=== PATIENT | male | born 1970 | race American Indian/Alaskan Native ===

== ENCOUNTER 2018-11-01 14:53 | Inpatient (IN) | payer MEDICARE ==
[2018-11-01] MEDS ORDERED: NACL 0.9% 1000 ML IV ONE (15:45)
[2018-11-01] MEDS ORDERED: VANCOMYCIN PHARMACY TO DOSE IV SCH (16:00)
[2018-11-01 16:12] LABS: Hematocrit 24.2 % (35.5-45.6); Hemoglobin 7.5 gm/dl (11.8-15.2); Mean Corpuscular HGB Conc 31 % (32-34); Mean Corpuscular Volume 79 fl (84-94); Platelet Count 212 K/mm3 (140-440); Red Blood Count 3.05 M/mm3 (3.65-5.03)
[2018-11-01 16:38] LABS: Albumin 1.3 g/dL (3.9-5); Calcium 7.3 mg/dL (8.4-10.2)
[2018-11-01] MEDS: ZOSYN/NS 4.5GM/100ML 4.5 GM/100 ML VIAL IV SCH (16:59)
[2018-11-01] MEDS ORDERED: NACL 0.9% 250ML 250 ML ONE (17:04)
[2018-11-01 17:07] LABS: Basophils % (Manual) 0 % (0.0-1.8); Eosinophils % (Manual) 0 % (0.0-4.3); Hypochromasia 1+; Total Cells Counted 100
[2018-11-01 17:08] LABS: Chol/HDL Ratio 2.16 %
--- NOTE | 2018-11-01 18:05 | XRay Report ---
CHEST 1 VIEW INDICATION: sepsis. COMPARISON: None. FINDINGS: Support devices: None. Heart: Within normal limits. Lungs/Pleura: Patchy infiltrate at the left mid/lower zone. There is associated volume loss. Additional findings: None. IMPRESSION: Left basilar volume loss and associated pneumonia. Signer Name: Ray Storm MD Signed: 11/01/2018 6:01 PM Workstation Name: [id number]
--- NOTE | 2018-11-01 19:04 | Emergency Department Report ---
ED General Adult HPI - General Chief complaint: Dizziness Stated complaint: LOW BP Time Seen by Provider: 11/01/18 15:45 Source: EMS Mode of arrival: Stretcher Limitations: Physical Limitation - History of Present Illness Initial comments: Mr. Hodgson is a 48-year-old male with history of bilateral LE amputation, pneumonitis, hypertension, atrial fibrillation, malnutrition, gangrene, diabetes mellitus, dyslipidemia, depression, sleep apnea, dehydration presents with hypotension. He currently resides at [facility]. He states that he has pain at the tailbone. He has a sacral decubitus wound. No other concerns according to the patient. -: This afternoon Consistency: constant Improves with: none Worsens with: none Associated Symptoms: other (hypotension, wound infection) - Related Data Allergies Allergy/AdvReac Type Severity Reaction Status Date / Time No Known Allergies Allergy Unverified 11/01/18 16:16 ED Review of Systems ROS: Stated complaint: LOW BP Other details as noted in HPI Comment: All other systems reviewed and negative Constitutional: malaise. 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 Absent: respiratory distress, wheezes, rales, rhonchi - Cardiovascular Cardiovascular Exam: Present: normal rhythm, tachycardia, irregular rhythm, normal heart sounds. Absent: rubs, gallop - GI/Abdominal GI/Abdominal exam: Present: soft, normal bowel sounds. Absent: distended, tenderness, guarding, rebound - Rectal Rectal exam: Present: other (stage IV large sacral decubitus ulcer with multiple areas of fluctuance purulent drainage) - Extremities Exam Extremities exam: Present: other (bilateral lower extremity below the knee amputation evident) - Back Exam Back exam: Present: other (sacral decubitus ulcer as previously described) - Neurological Exam Neurological exam: Present: alert, oriented X3 - Psychiatric Psychiatric exam: Present: depressed, flat affect - Skin Skin exam: Present: pallor. Absent: rash ED Course Vital Signs 11/01/18 11/01/18 11/01/18 15:36 17:02 17:30 Temperature 97.6 F Pulse Rate 98 H 128 H 125 H Respiratory 20 15 15 Rate Blood Pressure 74/48 107/62 107/65 Blood Pressure 74/48 [Left] O2 Sat by Pulse 98 93 92 Oximetry 11/01/18 11/01/18 18:00 18:30 Temperature Pulse Rate 100 H 93 H Respiratory 16 16 Rate Blood Pressure 104/55 128/73 Blood Pressure [Left] O2 Sat by Pulse 84 88 Oximetry ED Medical Decision Making - Lab Data Result diagrams: 11/01/18 15:53 11/01/18 15:53 Laboratory Results - last 24 hr 11/01/18 11/01/18 11/01/18 15:53 15:53 15:53 WBC 23.2 H RBC 3.05 L Hgb 7.5 L Hct 24.2 L MCV 79 L MCH 25 L MCHC 31 L RDW 20.0 H Plt Count 212 Add Manual Diff Complete Total Counted 100 Seg Neutrophils % Corporate Ethics Officer Seg Neuts % (Manual) 91.0 H Band Neutrophils % 0 Lymphocytes % (Manual) 5.0 L Reactive Lymphs % (Man) 0 Monocytes % (Manual) 4.0 Eosinophils % (Manual) 0 Basophils % (Manual) 0 Metamyelocytes % 0 Myelocytes % 0 Promyelocytes % 0 Blast Cells % 0 Nucleated RBC % Not Reportable Seg Neutrophils # Man 21.1 H Band Neutrophils # 0.0 Lymphocytes # (Manual) 1.2 Abs React Lymphs (Man) 0.0 Monocytes # (Manual) 0.9 H Eosinophils # (Manual) 0.0 Basophils # (Manual) 0.0 Metamyelocytes # 0.0 Myelocytes # 0.0 Promyelocytes # 0.0 Blast Cells # 0.0 WBC Morphology Not Reportable Hypersegmented Neuts Not Reportable Hyposegmented Neuts Not Reportable Hypogranular Neuts Not Reportable Smudge Cells Not Reportable Toxic Granulation Not Reportable Toxic Vacuolation Not Reportable Dohle Bodies Not Reportable Pelger-Huet Anomaly Not Reportable Brandon Rods Not Reportable Platelet Estimate Not Reportable Clumped Platelets Not Reportable Plt Clumps, EDTA Not Reportable Large Platelets Not Reportable Giant Platelets Not Reportable Platelet Satelliting Not Reportable Plt Morphology Comment Not Reportable RBC Morphology Not Reportable Dimorphic RBCs Not Reportable Polychromasia Not Reportable Hypochromasia 1+ Poikilocytosis Not Reportable Anisocytosis Not Reportable Microcytosis Not Reportable Macrocytosis Not Reportable Spherocytes Not Reportable Pappenheimer Bodies Not Reportable Sickle Cells Not Reportable Target Cells Not Reportable Tear Drop Cells Not Reportable Ovalocytes Not Reportable Helmet Cells Not Reportable Cornell-Pamplico Bodies Not Reportable [place] Rings Not Reportable Jose Cells Not Reportable Bite Cells Not Reportable Crenated Cell Not Reportable Elliptocytes Not Reportable Acanthocytes (Spur) Not Reportable Rouleaux Not Reportable Hemoglobin C Crystals Not Reportable Schistocytes Not Reportable Malaria parasites Not Reportable Jesus Alberto Bodies Not Reportable Hem Pathologist Commnt No Sodium 142 Potassium 4.2 Chloride 108.0 H Carbon Dioxide 18 L Anion Gap 20 BUN 62 H Creatinine 1.4 Estimated GFR 54 BUN/Creatinine Ratio 44 Glucose 91 Lactic Acid 4.00 H* Calcium 7.3 L Total Bilirubin 0.30 AST 15 ALT 6 L Alkaline Phosphatase 113 Troponin T NT-Pro-B Natriuret Pep Total Protein 6.3 Albumin 1.3 L Albumin/Globulin Ratio 0.3 Triglycerides Cholesterol LDL Cholesterol Direct HDL Cholesterol Cholesterol/HDL Ratio 11/01/18 15:53 WBC RBC Hgb Hct MCV MCH MCHC RDW Plt Count Add Manual Diff Total Counted Seg Neutrophils % Seg Neuts % (Manual) Band Neutrophils % Lymphocytes % (Manual) Reactive Lymphs % (Man) Monocytes % (Manual) Eosinophils % (Manual) Basophils % (Manual) Metamyelocytes % Myelocytes % Promyelocytes % Blast Cells % Nucleated RBC % Seg Neutrophils # Man Band Neutrophils # Lymphocytes # (Manual) Abs React Lymphs (Man) Monocytes # (Manual) Eosinophils # (Manual) Basophils # (Manual) Metamyelocytes # Myelocytes # Promyelocytes # Blast Cells # WBC Morphology Hypersegmented Neuts Hyposegmented Neuts Hypogranular Neuts Smudge Cells Toxic Granulation Toxic Vacuolation Dohle Bodies Pelger-Huet Anomaly Brandon Rods Platelet Estimate Clumped Platelets Plt Clumps, EDTA Large Platelets Giant Platelets Platelet Satelliting Plt Morphology Comment RBC Morphology Dimorphic RBCs Polychromasia Hypochromasia Poikilocytosis Anisocytosis Microcytosis Macrocytosis Spherocytes Pappenheimer Bodies Sickle Cells Target Cells Tear Drop Cells Ovalocytes Helmet Cells Cornell-Pamplico Bodies [place] Rings Ridgely Cells Bite Cells Crenated Cell Elliptocytes Acanthocytes (Spur) Rouleaux Hemoglobin C Crystals Schistocytes Malaria parasites Jesus Alberto Bodies Hem Pathologist Commnt Sodium Potassium Chloride Carbon Dioxide Anion Gap BUN Creatinine Estimated GFR BUN/Creatinine Ratio Glucose Lactic Acid Calcium Total Bilirubin AST ALT Alkaline Phosphatase Troponin T 0.790 H* NT-Pro-B Natriuret Pep 2622 H Total Protein Albumin Albumin/Globulin Ratio Triglycerides 34 Cholesterol 54 LDL Cholesterol Direct 23 L HDL Cholesterol 25 L Cholesterol/HDL Ratio 2.16 - EKG Data 11/01/18 19:04 EKG obtained 1647 Atrial fibrillation rate 130 beats a minute rapid ventricular rate normal axis low voltage QRS no ST elevation - Radiology Data Radiology results: report reviewed mid lower lower left infiltrate chest x-ray - Medical Decision Making Mr. Hodgson presents with septic shock due to hospital-acquired pneumonia and infected sacral decubitus ulcer. Heart rate hypotension improved with resuscitation IV fluid therapy and broad antibiotics. Admitted to hospitalist service in fair condition to telemetry. Prerenal azotemia, severe leukocytosis, lactic acidosis on lab review. Unclear significance of the elevated troponin. CT angiogram chest pending. Critical care attestation.: If time is entered above; I have spent that time in minutes in the direct care of this critically ill patient, excluding procedure time. ED Disposition Clinical Impression: Septic shock, Hospital-acquired pneumonia, Sacral decubitus ulcer Disposition: OP ADMIT IP TO THIS HOSP Is pt being admited?: Yes Does the pt Need Aspirin: No Condition: Stable
[2018-11-01] MEDS ORDERED: VANCOMYCIN 1,500 MG in NACL 0.9% 500 ML 500 ML IV ONE (19:30)
[2018-11-01] MEDS ORDERED: REGLAN IV PRN (22:40)
[2018-11-01] MEDS ORDERED: SODIUM CHLORIDE FLUSH SYRINGE 10 ML IV PRN (22:40)
[2018-11-01] MEDS ORDERED: TYLENOL PO PRN (22:40)
[2018-11-01] MEDS ORDERED: ZOFRAN IV PRN (22:40)
--- NOTE | 2018-11-01 22:45 | Event Note ---
Date: 11/01/18 Please see history and physical in the reports Sepsis Acute kidney injury Symptomatic anemia The nuñez was also
[2018-11-01] MEDS: DILAUDID IV PRN (23:47)
[2018-11-02] MEDS: ZOSYN/NS 4.5GM/100ML 4.5 GM/100 ML VIAL IV SCH ×4 (00:56→21:29)
[2018-11-02] MEDS: NACL 0.9% 1000 ML 1,000 ML IV SCH (00:56)
[2018-11-02 03:09] LABS: Hematocrit 26.4 % (35.5-45.6); Hemoglobin 8.3 gm/dl (11.8-15.2); Mean Corpuscular HGB Conc 31 % (32-34); Mean Corpuscular Volume 78 fl (84-94); Platelet Count 214 K/mm3 (140-440); Red Blood Count 3.37 M/mm3 (3.65-5.03)
[2018-11-02 03:23] LABS: Red Cell Distribution Width 20.1 % (13.2-15.2)
[2018-11-02 03:31] LABS: Alanine Aminotransferase 7 units/L (7-56); Albumin 1.6 g/dL (3.9-5); BUN/Creatinine Ratio 44; Blood Urea Nitrogen 62 mg/dL (9-20); Calcium 6.9 mg/dL (8.4-10.2); Hemolysis Index 8
[2018-11-02 04:42] LABS: Total Cells Counted 100
[2018-11-02 04:43] LABS: Anisocytosis 1+; Basophils % (Manual) 0 % (0.0-1.8); Eosinophils % (Manual) 0 % (0.0-4.3)
[2018-11-02 04:44] LABS: Hypochromasia Few; Platelet Estimate Consistent w Auto
--- NOTE | 2018-11-02 07:07 | History and Physical Report ---
CHIEF COMPLAINT: 1. Sacral decubitus ulcer. 2. Low blood pressure. HISTORY OF PRESENT ILLNESS: A 48-year-old -[place] male with bilateral lower extremity amputation below knee, hypertension, atrial fibrillation, diabetes, sleep apnea, sent in from [facility] for hypertension and sacral decubitus wound. Also, low-grade fever. The patient is lethargic. No shortness of breath. PAST MEDICAL HISTORY: As mentioned, hypertension, diabetes, sacral decubitus ulcer, peripheral arterial disease, severe protein-calorie malnutrition, traumatic amputation below the knee and the left lower extremity and also right lower extremity. PAST SURGICAL HISTORY: Bilateral below knee amputations. SOCIAL HISTORY: Former smoker. FAMILY HISTORY: Hypertension. REVIEW OF SYSTEMS: Significant for infected decubitus ulcer and generalized weakness and low-grade fever. Otherwise, review of systems negative. PHYSICAL EXAMINATION: GENERAL: Middle-age male, looks older than his age, lying in bed, lethargic. VITAL SIGNS: Initial blood pressure was 74/48, improved to 107/62, temperature is 97.6, pulse is 98, respirations are 20. HEENT: Dry mucous membranes. NECK: Supple, no lymphadenopathy, no thyromegaly. LUNGS: Clear to auscultation and percussion. Good air entry. CARDIOVASCULAR: S1, S2 heard. No gallop, no murmur, no rub. Apical impulse in left fifth intercostal space and midclavicular line. ABDOMEN: PEG tube in place. EXTREMITIES: Bilateral below knee amputation. Stump looks normal. Sacral decubitus ulcer present. CENTRAL NERVOUS SYSTEM: Alert, but lethargic. LABORATORY DATA: Significant for white count of 23,200, H and H is 7.5 and 24.2, platelet count is 212,000. Lactic acid is 4.8, BUN and creatinine is 62 and 1.4, anion gap is 20. Sodium is normal 142, potassium is 4.2. Total albumin is 1.3. BNP is 2622. DIAGNOSTIC DATA: Chest x-ray shows no acute infiltrate. EKG reviewed. Chest x-ray shows left basilar volume loss and associated possible pneumonia. ASSESSMENT AND PLAN: 1. Sepsis. The patient has a high white count of 23,200. The patient initiated on broad spectrum antibiotics, cefepime and vancomycin. ID consult requested. 2. Symptomatic anemia. The patient to be transfused 1-2 units of blood. 3. Acute kidney injury. BUN is 62, creatinine 1.4 with vasomotor nephropathy. IV fluids for now. Elevated lactic acid secondary to sepsis. 4. Elevated troponin. We will trend the troponin level. 5. Elevated BNP, possible congestive heart failure. Echocardiogram ordered for ejection fraction 6. Severe malnutrition. Dietitian consult requested. Albumin is 1.3. 7. Hypotension. IV fluids for now. 8. Sacral decubitus ulcer. Wound care consult and surgical consult requested. 9. Deep venous thrombosis prophylaxis. Lovenox 30 mg subcutaneous daily. In summary, the patient has sepsis, hypotension, sacral decubitus ulcer. We will hold the blood pressure medications. Wound care consult and Surgery consult for sacral decubitus ulcer. [facility]# [id number] JACINTO/ELZBIETA
[2018-11-02] MEDS: HumaLOG SUB-Q SCH ×4 (07:30→21:30)
[2018-11-02] MEDS: VANCOMYCIN 1,250 MG in NACL 0.9% 250ML 250 ML IV SCH ×2 (08:45→19:32)
[2018-11-02] MEDS: LYRICA PO SCH ×2 (09:20→21:30)
[2018-11-02] MEDS: PROTONIX PO SCH (09:20)
[2018-11-02] MEDS: ALDACTONE PO SCH (09:20)
[2018-11-02] MEDS: CREON DR 12,000 UNITS PO SCH ×3 (09:27→19:06)
[2018-11-02] MEDS: QUESTRAN PO SCH ×2 (09:27→21:31)
[2018-11-02] MEDS: SODIUM CHLORIDE FLUSH SYRINGE 10 ML IV SCH ×2 (09:28→21:31)
[2018-11-02] MEDS ORDERED: PEPCID IV SCH (10:00)
[2018-11-02] MEDS ORDERED: NON-FORMULARY (Torsemide [Demadex] 40 MG) PO SCH (10:00)
[2018-11-02] MEDS ORDERED: NON-FORMULARY (Pantoprazole Sodium [Protonix] 40 MG) PO SCH (10:00)
[2018-11-02] MEDS ORDERED: DAKIN'S HALF STRENGTH TP PRN (12:08)
--- NOTE | 2018-11-02 12:08 | Consultation ---
History of Present Illness Consult date: 11/02/18 Chief complaint: wounds - History of present illness History of present illness: 48 yo M with hx of DM, PVD presents to the ER with c/o lower back/sacral pain. He was found to have hypotension, tachycardia, fever in the ER. He was treated for sepsis and started on abx, IVF. The patient states he was in his normal state up until last December. At that time he was having complications in his legs from diabetes and elected to have a b/l BKA at [facility]. Since then he has been in a facility. He states he has never had issues with wounds before until he went to the facility. Since then he states he is often left sitting or laying down for long periods of time. He is unable to turn himself. He also has had long standing issues with certain foods upsetting his stomach. When this happens, he vomits. Past History Past Medical History: diabetes, hypertension Past Surgical History: Other (Bilateral BKA) Social history: other ([facility] Family history: no significant family history Medications and Allergies Allergies Allergy/AdvReac Type Severity Reaction Status Date / Time lactose AdvReac Diarrhea Verified 11/02/18 11:58 Home Medications Medication Instructions Recorded Confirmed Last Taken Type Amitriptyline [Elavil] 15 mg PO QHS 11/02/18 11/02/18 1 Day Ago History ~11/01/18 Ascorbic Acid [Vitamin C with Fouzia 500 mg PO BID 11/02/18 11/02/18 1 Day Ago History Hips] ~11/01/18 Carvedilol [Coreg] 3.125 mg PO BID 11/02/18 11/02/18 1 Day Ago History ~11/01/18 Cholestyramine (with Sugar) 4 gm PO BID 11/02/18 11/02/18 1 Day Ago History [Cholestyramine Packet] ~11/01/18 DULoxetine [Cymbalta] 30 mg PO QDAY 11/02/18 11/02/18 1 Day Ago History ~11/01/18 Gabapentin [Neurontin] 300 mg PO Q8HR 11/02/18 11/02/18 1 Day Ago History ~11/01/18 Lipase/Protease/Amylase [Garth Rodriguez 12,000 units PO AC 11/02/18 11/02/18 1 Day Ago History 12,000 Units Capsule] ~11/01/18 Multivitamin Tab W-MINERAL 1 each PO QD 11/02/18 11/02/18 1 Day Ago History [Multiple Vitamin/Mineral ~11/01/18 (Theragran M)] Pantoprazole Sodium [Protonix] 40 mg PO QDAY 11/02/18 11/02/18 1 Day Ago History ~11/01/18 Pregabalin [Lyrica] 75 mg PO BID 11/02/18 11/02/18 1 Day Ago History ~11/01/18 Spironolactone [Aldactone] 25 mg PO QDAY 11/02/18 11/02/18 1 Day Ago History ~11/01/18 Torsemide [Demadex] 40 mg PO BID 11/02/18 11/02/18 1 Day Ago History ~11/01/18 hydrALAZINE [Apresoline] 75 mg PO Q8HR 11/02/18 11/02/18 1 Day Ago History ~11/01/18 oxyCODONE /ACETAMINOPHEN [Percocet 1 tab PO Q6HR PRN 11/02/18 11/02/18 1 Day Ago History 5/325] ~11/01/18 Active Meds: Active Medications Acetaminophen (Tylenol) 650 mg PO Q4H PRN PRN Reason: Pain MILD(1-3)/Fever >100.5/NOWAK Lipase/Protease/Amylase (Creon Dr 12,000 Units) 1 each PO AC YURI Last Admin: 11/02/18 09:27 Dose: 1 each Documented by: Cholestyramine Resin (Questran) 4 gm PO BID YURI Last Admin: 11/02/18 09:27 Dose: 4 gm Documented by: Enoxaparin Sodium (Lovenox) 40 mg SUB-Q QDAY@2200 YURI Hydromorphone HCl (Dilaudid) 0.5 mg IV Q3H PRN PRN Reason: Pain , Severe (7-10) Last Admin: 11/01/18 23:47 Dose: 0.5 mg Documented by: Piperacillin Sod/Tazobactam Sod (Zosyn/Ns 4.5gm/100ml) 4.5 gm in 100 mls @ 200 mls/hr IV Q8HR YURI; Protocol Last Admin: 11/02/18 05:32 Dose: 200 mls/hr Documented by: Vancomycin HCl 1,250 mg/ (Sodium Chloride) 275 mls @ 166.667 mls/hr IV Q12H [facility] Last Admin: 11/02/18 08:45 Dose: 166.667 mls/hr Documented by: Sodium Chloride (Nacl 0.9% 1000 Ml) 1,000 mls @ 100 mls/hr IV DIRECT [facility] Last Admin: 11/02/18 00:56 Dose: 100 mls/hr Documented by: Insulin Human Lispro (Humalog) 0 unit SUB-Q ACHS [facility]; Protocol Metoclopramide HCl (Reglan) 10 mg IV Q6H PRN PRN Reason: Nausea And Vomiting Ondansetron HCl (Zofran) 4 mg IV Q8H PRN PRN Reason: Nausea And Vomiting Oxycodone/Acetaminophen (Percocet 5/325) 1 tab PO Q6HR PRN PRN Reason: Pain Pantoprazole Sodium (Protonix) 40 mg PO QDAY [facility] Last Admin: 11/02/18 09:20 Dose: 40 mg Documented by: Pregabalin (Lyrica) 75 mg PO BID [facility] Last Admin: 11/02/18 09:20 Dose: 75 mg Documented by: Sodium Chloride (Sodium Chloride Flush Syringe 10 Ml) 10 ml IV BID [facility] Last Admin: 11/02/18 09:28 Dose: 10 ml Documented by: Sodium Chloride (Sodium Chloride Flush Syringe 10 Ml) 10 ml IV PRN PRN PRN Reason: LINE FLUSH Spironolactone (Aldactone) 25 mg PO QDAY [facility] Last Admin: 11/02/18 09:20 Dose: 25 mg Documented by: Torsemide (Demadex) 40 mg PO BID@0600,1800 [facility] Review of Systems All systems: negative (10 pt ROS performed and negative except for that listed in HPI) Exam Vital Signs Temp Pulse Resp BP Pulse Ox 97.6 F 98 H 20 74/48 98 11/01/18 15:36 11/01/18 15:36 11/01/18 15:36 11/01/18 15:36 11/01/18 15:36 Narrative exam: Gen: AAOx3. NAD ENT: no scleral icterus or conjunctival pallor CV: s1, S2+ Resp: even and unlabored Abd: soft Ext: no c/c/e. B/L BKA Sacrum: unstageable sacral wound with overlying gauthier slough. L buttock wound - stage 2 clean base. R buttock wound stage 3 with tunneling, some yellow slough. No drainage from the wounds. Moderate TTP. Results - Labs 11/02/18 02:49 11/02/18 02:49 Abnormal lab results 11/01/18 11/01/18 11/01/18 Range/Units 15:53 15:53 15:53 WBC 23.2 H (4.5-11.0) K/mm3 RBC 3.05 L (3.65-5.03) M/mm3 Hgb 7.5 L (11.8-15.2) gm/dl Hct 24.2 L (35.5-45.6) % MCV 79 L (84-94) fl MCH 25 L (28-32) pg MCHC 31 L (32-34) % RDW 20.0 H (13.2-15.2) % Seg Neuts % (Manual) 91.0 H (40.0-70.0) % Lymphocytes % (Manual) 5.0 L (13.4-35.0) % Seg Neutrophils # Man 21.1 H (1.8-7.7) K/mm3 Monocytes # (Manual) 0.9 H (0.0-0.8) K/mm3 Chloride 108.0 H (98-107) mmol/L Carbon Dioxide 18 L (22-30) mmol/L BUN 62 H (9-20) mg/dL Glucose (75-100) mg/dL Lactic Acid 4.00 H* (0.7-2.0) mmol/L Calcium 7.3 L (8.4-10.2) mg/dL ALT 6 L (7-56) units/L Alkaline Phosphatase (35-129) units/L Troponin T (0.00-0.029) ng/mL NT-Pro-B Natriuret Pep (0-450) pg/mL Albumin 1.3 L (3.9-5) g/dL LDL Cholesterol Direct (50-130) mg/dL HDL Cholesterol (40-59) mg/dL 11/01/18 11/01/18 11/01/18 Range/Units 15:53 21:00 23:29 WBC (4.5-11.0) K/mm3 RBC (3.65-5.03) M/mm3 Hgb (11.8-15.2) gm/dl Hct (35.5-45.6) % MCV (84-94) fl MCH (28-32) pg MCHC (32-34) % RDW (13.2-15.2) % Seg Neuts % (Manual) (40.0-70.0) % Lymphocytes % (Manual) (13.4-35.0) % Seg Neutrophils # Man (1.8-7.7) K/mm3 Monocytes # (Manual) (0.0-0.8) K/mm3 Chloride (98-107) mmol/L Carbon Dioxide (22-30) mmol/L BUN (9-20) mg/dL Glucose (75-100) mg/dL Lactic Acid 2.80 H* 2.40 H* (0.7-2.0) mmol/L Calcium (8.4-10.2) mg/dL ALT (7-56) units/L Alkaline Phosphatase (35-129) units/L Troponin T 0.790 H* (0.00-0.029) ng/mL NT-Pro-B Natriuret Pep 2622 H (0-450) pg/mL Albumin (3.9-5) g/dL LDL Cholesterol Direct 23 L (50-130) mg/dL HDL Cholesterol 25 L (40-59) mg/dL 11/02/18 11/02/18 11/02/18 Range/Units 02:49 02:49 07:01 WBC 26.5 H (4.5-11.0) K/mm3 RBC 3.37 L (3.65-5.03) M/mm3 Hgb 8.3 L (11.8-15.2) gm/dl Hct 26.4 L (35.5-45.6) % MCV 78 L (84-94) fl MCH 25 L (28-32) pg MCHC 31 L (32-34) % RDW 20.1 H (13.2-15.2) % Seg Neuts % (Manual) 91.0 H (40.0-70.0) % Lymphocytes % (Manual) 8.0 L (13.4-35.0) % Seg Neutrophils # Man 24.1 H (1.8-7.7) K/mm3 Monocytes # (Manual) (0.0-0.8) K/mm3 Chloride 109.2 H (98-107) mmol/L Carbon Dioxide 19 L (22-30) mmol/L BUN 62 H (9-20) mg/dL Glucose 59 L (75-100) mg/dL Lactic Acid (0.7-2.0) mmol/L Calcium 6.9 L (8.4-10.2) mg/dL ALT (7-56) units/L Alkaline Phosphatase 144 H (35-129) units/L Troponin T 0.507 H* D (0.00-0.029) ng/mL NT-Pro-B Natriuret Pep (0-450) pg/mL Albumin 1.6 L (3.9-5) g/dL LDL Cholesterol Direct (50-130) mg/dL HDL Cholesterol (40-59) mg/dL Diabetes panel 11/01/18 11/01/18 11/01/18 Range/Units 15:53 15:53 23:29 Sodium 142 (137-145) mmol/L Potassium 4.2 (3.6-5.0) mmol/L Chloride 108.0 H (98-107) mmol/L Carbon Dioxide 18 L (22-30) mmol/L BUN 62 H (9-20) mg/dL Creatinine 1.4 (0.8-1.5) mg/dL Glucose 91 (75-100) mg/dL Hemoglobin A1c 4.7 (4-6) % Calcium 7.3 L (8.4-10.2) mg/dL AST 15 (5-40) units/L ALT 6 L (7-56) units/L Alkaline Phosphatase 113 (35-129) units/L Total Protein 6.3 (6.3-8.2) g/dL Albumin 1.3 L (3.9-5) g/dL Triglycerides 34 (2-149) mg/dL HDL Cholesterol 25 L (40-59) mg/dL 11/02/18 Range/Units 02:49 Sodium 145 (137-145) mmol/L Potassium 4.5 (3.6-5.0) mmol/L Chloride 109.2 H (98-107) mmol/L Carbon Dioxide 19 L (22-30) mmol/L BUN 62 H (9-20) mg/dL Creatinine 1.4 (0.8-1.5) mg/dL Glucose 59 L (75-100) mg/dL Hemoglobin A1c (4-6) % Calcium 6.9 L (8.4-10.2) mg/dL AST 16 (5-40) units/L ALT 7 (7-56) units/L Alkaline Phosphatase 144 H (35-129) units/L Total Protein 6.5 (6.3-8.2) g/dL Albumin 1.6 L (3.9-5) g/dL Triglycerides (2-149) mg/dL HDL Cholesterol (40-59) mg/dL Calcium panel 11/01/18 11/02/18 Range/Units 15:53 02:49 Calcium 7.3 L 6.9 L (8.4-10.2) mg/dL Albumin 1.3 L 1.6 L (3.9-5) g/dL Pituitary panel 11/01/18 11/02/18 Range/Units 15:53 02:49 Sodium 142 145 (137-145) mmol/L Potassium 4.2 4.5 (3.6-5.0) mmol/L Chloride 108.0 H 109.2 H (98-107) mmol/L Carbon Dioxide 18 L 19 L (22-30) mmol/L BUN 62 H 62 H (9-20) mg/dL Creatinine 1.4 1.4 (0.8-1.5) mg/dL Glucose 91 59 L (75-100) mg/dL Calcium 7.3 L 6.9 L (8.4-10.2) mg/dL Adrenal panel 11/01/18 11/02/18 Range/Units 15:53 02:49 Sodium 142 145 (137-145) mmol/L Potassium 4.2 4.5 (3.6-5.0) mmol/L Chloride 108.0 H 109.2 H (98-107) mmol/L Carbon Dioxide 18 L 19 L (22-30) mmol/L BUN 62 H 62 H (9-20) mg/dL Creatinine 1.4 1.4 (0.8-1.5) mg/dL Glucose 91 59 L (75-100) mg/dL Calcium 7.3 L 6.9 L (8.4-10.2) mg/dL Total Bilirubin 0.30 0.40 (0.1-1.2) mg/dL AST 15 16 (5-40) units/L ALT 6 L 7 (7-56) units/L Alkaline Phosphatase 113 144 H (35-129) units/L Total Protein 6.3 6.5 (6.3-8.2) g/dL Albumin 1.3 L 1.6 L (3.9-5) g/dL Assessment and Plan 48 yo M with 1. sacral decubitus ulcer - unstageable, likely stage 4 2. bilateral gluteal pressure ulcers 3. severe malnutrition - albumin 1.7 4. sepsis 5. elevated troponin Plan: 1. wound care as per check writer 2. IV abx. ID consulted 3. offloading 4. prealbumin 5. optimize nutrition - consult stage director, add protein supplements 6. MRI sacrum to r/o osteo 7. Will need debridement of sacral wound in OR as patient has sensation in the sacral area and pain. Will need to obtain deep cultures. However, he has elevated troponins. Recommend cardiology consult for evaluation preop. Thank you, please call with questions.
[2018-11-02] MEDS: DEMADEX PO SCH ×2 (12:12→19:07)
[2018-11-02] MEDS: DILAUDID IV PRN ×2 (12:36→21:50)
--- NOTE | 2018-11-02 13:37 | Consultation ---
History of Present Illness - Reason for Consult Consult date: 11/02/18 - History of Present Illness 48 yo M with PMHx of bilateral BKA, HTN, afib, DM2, sleep apnea who was initially admitted from his car facility with HTN and a sacral decub wound. The patient complains of lethargy in addition to having fevers at his care facility. It is noted that he was recently at [facility] several months ago where he had his amputations. Since then he has been at his care facility where he has developed the ulcers. On discussion with Dr. Russo, the wound looks dry, though the sacral ulcer likely extends to the bone. It's noted in the chart he had some penile discharge which was documented with photos. He reports previously having a Li catheter that became infected in the past, however that it was "taken care of". Denies penile pain or dysuria. He has been afebrile since admission with a leukocytosis to 26.5. Currently receiving vanc and Zosyn. Blood cultures are currently pending. CXR with left pneumonia. Past History Past Medical History: atrial fib, diabetes, hypertension Past Surgical History: Other (bilateral BKA) Social history: other (lives in facility). denies: smoking, alcohol abuse Family history: diabetes, hypertension Medications and Allergies Allergies Allergy/AdvReac Type Severity Reaction Status Date / Time lactose AdvReac Diarrhea Verified 11/02/18 11:58 Home Medications Medication Instructions Recorded Confirmed Last Taken Type Amitriptyline [Elavil] 15 mg PO QHS 11/02/18 11/02/18 1 Day Ago History ~11/01/18 Ascorbic Acid [Vitamin C with Fouzia 500 mg PO BID 11/02/18 11/02/18 1 Day Ago History Hips] ~11/01/18 Carvedilol [Coreg] 3.125 mg PO BID 11/02/18 11/02/18 1 Day Ago History ~11/01/18 Cholestyramine (with Sugar) 4 gm PO BID 11/02/18 11/02/18 1 Day Ago History [Cholestyramine Packet] ~11/01/18 DULoxetine [Cymbalta] 30 mg PO QDAY 11/02/18 11/02/18 1 Day Ago History ~11/01/18 Gabapentin [Neurontin] 300 mg PO Q8HR 11/02/18 11/02/18 1 Day Ago History ~11/01/18 Lipase/Protease/Amylase [Garth Rodriguez 12,000 units PO AC 11/02/18 11/02/18 1 Day Ago History 12,000 Units Capsule] ~11/01/18 Multivitamin Tab W-MINERAL 1 each PO QD 11/02/18 11/02/18 1 Day Ago History [Multiple Vitamin/Mineral ~11/01/18 (Theragran M)] Pantoprazole Sodium [Protonix] 40 mg PO QDAY 11/02/18 11/02/18 1 Day Ago History ~11/01/18 Pregabalin [Lyrica] 75 mg PO BID 11/02/18 11/02/18 1 Day Ago History ~11/01/18 Spironolactone [Aldactone] 25 mg PO QDAY 11/02/18 11/02/18 1 Day Ago History ~11/01/18 Torsemide [Demadex] 40 mg PO BID 11/02/18 11/02/18 1 Day Ago History ~11/01/18 hydrALAZINE [Apresoline] 75 mg PO Q8HR 11/02/18 11/02/18 1 Day Ago History ~11/01/18 oxyCODONE /ACETAMINOPHEN [Percocet 1 tab PO Q6HR PRN 11/02/18 11/02/18 1 Day Ago History /325] ~11/01/18 Active Meds: Active Medications Acetaminophen (Tylenol) 650 mg PO Q4H PRN PRN Reason: Pain MILD(1-3)/Fever >100.5/NOWAK Lipase/Protease/Amylase (Garth Rodriguez 12,000 Units) 1 each PO AC [facility] Last Admin: 11/02/18 12:13 Dose: 1 each Documented by: Cholestyramine Resin (Questran) 4 gm PO BID [facility] Last Admin: 11/02/18 09:27 Dose: 4 gm Documented by: Enoxaparin Sodium (Lovenox) 40 mg SUB-Q QDAY@2200 [facility] Hydromorphone HCl (Dilaudid) 0.5 mg IV Q3H PRN PRN Reason: Pain , Severe (7-10) Last Admin: 11/02/18 12:36 Dose: 0.5 mg Documented by: Piperacillin Sod/Tazobactam Sod (Zosyn/Ns 4.5gm/100ml) 4.5 gm in 100 mls @ 200 mls/hr IV Q8HR [facility]; Protocol Last Admin: 11/02/18 05:32 Dose: 200 mls/hr Documented by: Vancomycin HCl 1,250 mg/ (Sodium Chloride) 275 mls @ 166.667 mls/hr IV Q12H [facility] Last Admin: 11/02/18 08:45 Dose: 166.667 mls/hr Documented by: Sodium Chloride (Nacl 0.9% 1000 Ml) 1,000 mls @ 100 mls/hr IV DIRECT [facility] Last Admin: 11/02/18 00:56 Dose: 100 mls/hr Documented by: Insulin Human Lispro (Humalog) 0 unit SUB-Q ACHS [facility]; Protocol Metoclopramide HCl (Reglan) 10 mg IV Q6H PRN PRN Reason: Nausea And Vomiting Ondansetron HCl (Zofran) 4 mg IV Q8H PRN PRN Reason: Nausea And Vomiting Oxycodone/Acetaminophen (Percocet 5/325) 1 tab PO Q6HR PRN PRN Reason: Pain Pantoprazole Sodium (Protonix) 40 mg PO QDAY [facility] Last Admin: 11/02/18 09:20 Dose: 40 mg Documented by: Pregabalin (Lyrica) 75 mg PO BID [facility] Last Admin: 11/02/18 09:20 Dose: 75 mg Documented by: Sodium Chloride (Sodium Chloride Flush Syringe 10 Ml) 10 ml IV BID [facility] Last Admin: 11/02/18 09:28 Dose: 10 ml Documented by: Sodium Chloride (Sodium Chloride Flush Syringe 10 Ml) 10 ml IV PRN PRN PRN Reason: LINE FLUSH Sodium Hypochlorite (Dakin's Half Strength) 1 applic TP Q12H PRN PRN Reason: Wound Care Spironolactone (Aldactone) 25 mg PO QDAY [facility] Last Admin: 11/02/18 09:20 Dose: 25 mg Documented by: Torsemide (Demadex) 40 mg PO BID@0600,1800 [facility] Last Admin: 11/02/18 12:12 Dose: 40 mg Documented by: Review of Systems Constitutional: fever, lethargy, no weight loss, no weight gain, no chills Ears, nose, mouth and throat: no nasal congestion, no sinus pain, no dysphagia, no sore throat Cardiovascular: no chest pain, no orthopnea, no palpitations, no edema, no syncope Respiratory: no cough, no hemoptysis, no shortness of breath Gastrointestinal: no abdominal pain, no nausea, no vomiting, no diarrhea Genitourinary Male: discharge, no dysuria, no urinary frequency, no urinary hesitancy Musculoskeletal: low back pain, no neck pain, no myalgias Integumentary: sores, wounds, no rash, no redness Neurological: no numbness, no seizures, no syncope Endocrine: no cold intolerance, no heat intolerance, no polydipsia, no polyuria Hematologic/Lymphatic: no easy bruising, no easy bleeding, no lymphadenopathy Physical Examination - Physical Exam Narrative exam: Constitutional: awake, no distress, following commands Head, Ears, Nose: Normocephalic, atraumatic. External ears, nose normal Eyes: Conjunctivae/corneas clear. No icterus. No ptosis. Neck: Supple, no meningeal signs Oral: fair dentition, moist mucous membranes Cardiovascular: S1, S2 normal. Normal rhythm Respiratory: Good air entry, clear to auscultation bilaterally GI: Soft, non-tender; bowel sounds normal. No peritoneal signs : yellowish discharge/lesion on inferior aspect of penis, below the meatus. Unable to be easily wiped away Musculoskeletal: 3x wounds, deep. No obvious purulence. Bilateral BKA. Skin: No rash or abscess Hem/Lymphatic: No palpable cervical or supraclavicular nodes. No lymphangitis Psych: no agitation Neurological: Moves all extremities, no focal defects - Constitutional Vitals: Vital Signs Temp Pulse Resp BP Pulse Ox 97.6 F 79 18 165/94 96 11/02/18 08:33 11/02/18 08:33 11/02/18 08:33 11/02/18 08:33 11/02/18 08:33 Temperature -Last 24 Hours Temperature 97.6 F Temperature 98.2 F Temperature 98.4 F Temperature 97.6 F Temperature 97.6 F Results - Labs CBC & Chem 7: 11/02/18 02:49 11/02/18 02:49 Labs: Abnormal lab results 11/01/18 11/01/18 11/01/18 Range/Units 15:53 15:53 15:53 WBC 23.2 H (4.5-11.0) K/mm3 RBC 3.05 L (3.65-5.03) M/mm3 Hgb 7.5 L (11.8-15.2) gm/dl Hct 24.2 L (35.5-45.6) % MCV 79 L (84-94) fl MCH 25 L (28-32) pg MCHC 31 L (32-34) % RDW 20.0 H (13.2-15.2) % Seg Neuts % (Manual) 91.0 H (40.0-70.0) % Lymphocytes % (Manual) 5.0 L (13.4-35.0) % Seg Neutrophils # Man 21.1 H (1.8-7.7) K/mm3 Monocytes # (Manual) 0.9 H (0.0-0.8) K/mm3 Chloride 108.0 H (98-107) mmol/L Carbon Dioxide 18 L (22-30) mmol/L BUN 62 H (9-20) mg/dL Glucose (75-100) mg/dL Lactic Acid 4.00 H* (0.7-2.0) mmol/L Calcium 7.3 L (8.4-10.2) mg/dL ALT 6 L (7-56) units/L Alkaline Phosphatase (35-129) units/L Troponin T (0.00-0.029) ng/mL NT-Pro-B Natriuret Pep (0-450) pg/mL Albumin 1.3 L (3.9-5) g/dL LDL Cholesterol Direct (50-130) mg/dL HDL Cholesterol (40-59) mg/dL 11/01/18 11/01/18 11/01/18 Range/Units 15:53 21:00 23:29 WBC (4.5-11.0) K/mm3 RBC (3.65-5.03) M/mm3 Hgb (11.8-15.2) gm/dl Hct (35.5-45.6) % MCV (84-94) fl MCH (28-32) pg MCHC (32-34) % RDW (13.2-15.2) % Seg Neuts % (Manual) (40.0-70.0) % Lymphocytes % (Manual) (13.4-35.0) % Seg Neutrophils # Man (1.8-7.7) K/mm3 Monocytes # (Manual) (0.0-0.8) K/mm3 Chloride (98-107) mmol/L Carbon Dioxide (22-30) mmol/L BUN (9-20) mg/dL Glucose (75-100) mg/dL Lactic Acid 2.80 H* 2.40 H* (0.7-2.0) mmol/L Calcium (8.4-10.2) mg/dL ALT (7-56) units/L Alkaline Phosphatase (35-129) units/L Troponin T 0.790 H* (0.00-0.029) ng/mL NT-Pro-B Natriuret Pep 2622 H (0-450) pg/mL Albumin (3.9-5) g/dL LDL Cholesterol Direct 23 L (50-130) mg/dL HDL Cholesterol 25 L (40-59) mg/dL 11/02/18 11/02/18 11/02/18 Range/Units 02:49 02:49 07:01 WBC 26.5 H (4.5-11.0) K/mm3 RBC 3.37 L (3.65-5.03) M/mm3 Hgb 8.3 L (11.8-15.2) gm/dl Hct 26.4 L (35.5-45.6) % MCV 78 L (84-94) fl MCH 25 L (28-32) pg MCHC 31 L (32-34) % RDW 20.1 H (13.2-15.2) % Seg Neuts % (Manual) 91.0 H (40.0-70.0) % Lymphocytes % (Manual) 8.0 L (13.4-35.0) % Seg Neutrophils # Man 24.1 H (1.8-7.7) K/mm3 Monocytes # (Manual) (0.0-0.8) K/mm3 Chloride 109.2 H (98-107) mmol/L Carbon Dioxide 19 L (22-30) mmol/L BUN 62 H (9-20) mg/dL Glucose 59 L (75-100) mg/dL Lactic Acid (0.7-2.0) mmol/L Calcium 6.9 L (8.4-10.2) mg/dL ALT (7-56) units/L Alkaline Phosphatase 144 H (35-129) units/L Troponin T 0.507 H* D (0.00-0.029) ng/mL NT-Pro-B Natriuret Pep (0-450) pg/mL Albumin 1.6 L (3.9-5) g/dL LDL Cholesterol Direct (50-130) mg/dL HDL Cholesterol (40-59) mg/dL - Imaging and Cardiology Chest x-ray: image reviewed (L pneumonia) Assessment and Plan Cultures: 11/01/18 - BCX NGTD A/P: 48 yo M with PMHx of bilateral BKA, HTN, afib, DM2, sleep apnea admitted with sacral decubitus ulcer, pneumonia and penile discharge. 1. Sepsis secondary to pneumonia - seen on CXR, would continue antibiotics with pip/tazo and vanco for now given myriad of infectious processes. Not short of breath currently. 2. Sacral decubitus ulcer - high concern for osteomyelitis, wound likely down to the bone. Will need 6 weeks of IV antibiotics. Recommend MRI of the sacrum. Discussed with surgery to obtain deep wound or bone cultures during debridement. 3. Penile discharge - swabbed with GATEKEEPER, doesn't entirely appear to be discharge. Appears to be lesion on penis. 4. Hx of BKA 5. HTn 6. Afib 7. DM2 Recs: continue vancomycin Continue pip-tazo MRI of sacrum obtain deep wound/bone cultures from debridement obtain ESR/CRP (ordered) vanc trough after 4th dose monitor renal funtion on vanco/pip-tazo with daily serum creatinine follow blood cultures Would strongly consider urology consult. urine gonorrhea and chlamydia (low risk; ordered) ordered culture of penile discharge/lesion D/W Dr. Russo Thank you for the consult. We will continue to follow along. Kiara Graves MD [facility] ([facility] C: [phone] O: [phone] F: [phone]
--- NOTE | 2018-11-02 14:46 | Progress Note ---
Assessment and Plan Assessment and plan: Sepsis secondary to pneumonia - seen on CXR, would continue antibiotics with pip/tazo and vanco for now given myriad of infectious processes. Not short of breath currently. Sacral decubitus ulcer - high concern for osteomyelitis, wound likely down to the bone. Will need 6 weeks of IV antibiotics. F/U MRI of the sacrum. Surgery to obtain deep wound or bone cultures during debridement. Penile discharge - swabbed with MANAGER AUDIO, doesn't entirely appear to be discharge. Appears to be lesion on penis. Hx of BKA Hypertension. Continue antihypertensive medications. Afib. Rate controlled. Cardiology consultation pending. Elevated troponin. Cardiology consultation DM2. Continue Accu-Cheks and sliding scale insulin. History Interval history: New issues overnight. Hospitalist Physical - Constitutional Vitals: Temp Pulse Resp BP Pulse Ox 97.6 F 79 18 165/94 96 11/02/18 08:33 11/02/18 08:33 11/02/18 08:33 11/02/18 08:33 11/02/18 08:33 General appearance: Present: no acute distress, well-nourished - EENT Eyes: Present: PERRL, EOM intact ENT: hearing intact, clear oral mucosa, dentition normal - Neck Neck: Present: supple, normal ROM - Respiratory Respiratory effort: normal Respiratory: bilateral: CTA - Cardiovascular Rhythm: regular Heart Sounds: Present: S1 & S2. Absent: gallop, rub - Extremities Extremities: no ischemia, No edema, Full ROM - Abdominal General gastrointestinal: soft, non-tender, non-distended, normal bowel sounds - Integumentary Integumentary: Present: clear, warm, dry - Neurologic Neurologic: CNII-XII intact, moves all extremities Results - Labs CBC & Chem 7: 11/02/18 02:49 11/02/18 02:49 Labs: Laboratory Last Values WBC 26.5 K/mm3 (4.5-11.0) H 11/02/18 02:49 RBC 3.37 M/mm3 (3.65-5.03) L 11/02/18 02:49 Hgb 8.3 gm/dl (11.8-15.2) L 11/02/18 02:49 Hct 26.4 % (35.5-45.6) L 11/02/18 02:49 MCV 78 fl (84-94) L 11/02/18 02:49 MCH 25 pg (28-32) L 11/02/18 02:49 MCHC 31 % (32-34) L 11/02/18 02:49 RDW 20.1 % (13.2-15.2) H 11/02/18 02:49 Plt Count 214 K/mm3 (140-440) 11/02/18 02:49 Add Manual Diff Complete 11/02/18 02:49 Total Counted 100 11/02/18 02:49 Seg Neutrophils % Latin Dance Instructor 11/02/18 02:49 Seg Neuts % (Manual) 91.0 % (40.0-70.0) H 11/02/18 02:49 0 % 11/02/18 02:49 8.0 % (13.4-35.0) L 11/02/18 02:49 Reactive Lymphs % (Man) 0 % 11/02/18 02:49 1.0 % (0.0-7.3) 11/02/18 02:49 0 % (0.0-4.3) 11/02/18 02:49 0 % (0.0-1.8) 11/02/18 02:49 0 % 11/02/18 02:49 0 % 11/02/18 02:49 0 % 11/02/18 02:49 0 % 11/02/18 02:49 Nucleated RBC % Not Reportable 11/02/18 02:49 Seg Neutrophils # Man 24.1 K/mm3 (1.8-7.7) H 11/02/18 02:49 Band Neutrophils # 0.0 K/mm3 11/02/18 02:49 2.1 K/mm3 (1.2-5.4) 11/02/18 02:49 Abs React Lymphs (Man) 0.0 K/mm3 11/02/18 02:49 0.3 K/mm3 (0.0-0.8) 11/02/18 02:49 0.0 K/mm3 (0.0-0.4) 11/02/18 02:49 0.0 K/mm3 (0.0-0.1) 11/02/18 02:49 0.0 K/mm3 11/02/18 02:49 0.0 K/mm3 11/02/18 02:49 0.0 K/mm3 11/02/18 02:49 Blast Cells # 0.0 K/mm3 11/02/18 02:49 WBC Morphology Not Reportable 11/02/18 02:49 Hypersegmented Neuts Not Reportable 11/02/18 02:49 Hyposegmented Neuts Not Reportable 11/02/18 02:49 Hypogranular Neuts Not Reportable 11/02/18 02:49 Not Reportable 11/02/18 02:49 Not Reportable 11/02/18 02:49 Not Reportable 11/02/18 02:49 Not Reportable 11/02/18 02:49 Not Reportable 11/02/18 02:49 Not Reportable 11/02/18 02:49 Consistent w auto 11/02/18 02:49 Not Reportable 11/02/18 02:49 Plt Clumps, EDTA Not Reportable 11/02/18 02:49 Not Reportable 11/02/18 02:49 Not Reportable 11/02/18 02:49 Not Reportable 11/02/18 02:49 Plt Morphology Comment Giant platelets 11/02/18 02:49 RBC Morphology Not Reportable 11/02/18 02:49 Dimorphic RBCs Not Reportable 11/02/18 02:49 Not Reportable 11/02/18 02:49 Few 11/02/18 02:49 Not Reportable 11/02/18 02:49 1+ 11/02/18 02:49 Not Reportable 11/02/18 02:49 Not Reportable 11/02/18 02:49 Not Reportable 11/02/18 02:49 Not Reportable 11/02/18 02:49 Not Reportable 11/02/18 02:49 Not Reportable 11/02/18 02:49 Not Reportable 11/02/18 02:49 Not Reportable 11/02/18 02:49 Not Reportable 11/02/18 02:49 Not Reportable 11/02/18 02:49 Not Reportable 11/02/18 02:49 Not Reportable 11/02/18 02:49 Not Reportable 11/02/18 02:49 Not Reportable 11/02/18 02:49 Not Reportable 11/02/18 02:49 Acanthocytes (Spur) Not Reportable 11/02/18 02:49 Rouleaux Not Reportable 11/02/18 02:49 Not Reportable 11/02/18 02:49 Not Reportable 11/02/18 02:49 Not Reportable 11/02/18 02:49 Not Reportable 11/02/18 02:49 Hem Pathologist Commnt No 11/02/18 02:49 Sodium 145 mmol/L (137-145) 11/02/18 02:49 Potassium 4.5 mmol/L (3.6-5.0) 11/02/18 02:49 Chloride 109.2 mmol/L (98-107) H 11/02/18 02:49 Carbon Dioxide 19 mmol/L (22-30) L 11/02/18 02:49 21 mmol/L 11/02/18 02:49 BUN 62 mg/dL (9-20) H 11/02/18 02:49 1.4 mg/dL (0.8-1.5) 11/02/18 02:49 Estimated GFR > 60 ml/min 11/02/18 02:49 44 % 11/02/18 02:49 Glucose 59 mg/dL (75-100) L 11/02/18 02:49 POC Glucose 78 (70-105) 11/02/18 12:45 4.7 % (4-6) 11/01/18 23:29 Lactic Acid 1.80 mmol/L (0.7-2.0) 11/02/18 05:45 Calcium 6.9 mg/dL (8.4-10.2) L 11/02/18 02:49 0.40 mg/dL (0.1-1.2) 11/02/18 02:49 AST 16 units/L (5-40) 11/02/18 02:49 ALT 7 units/L (7-56) 11/02/18 02:49 144 units/L (35-129) H 11/02/18 02:49 0.507 ng/mL (0.00-0.029) H* D 11/02/18 07:01 NT-Pro-B Natriuret Pep 2622 pg/mL (0-450) H 11/01/18 15:53 6.5 g/dL (6.3-8.2) 11/02/18 02:49 1.6 g/dL (3.9-5) L 11/02/18 02:49 0.3 % 11/02/18 02:49 Triglycerides 34 mg/dL (2-149) 11/01/18 15:53 Cholesterol 54 mg/dL (50-199) 11/01/18 15:53 23 mg/dL (50-130) L 11/01/18 15:53 25 mg/dL (40-59) L 11/01/18 15:53 2.16 % 11/01/18 15:53 Active Medications - Current Medications Current Medications: Generic Name Dose Route Start Last Admin Trade Name Freq PRN Reason Stop Dose Admin Acetaminophen 650 mg 11/01/18 22:40 Tylenol PO Q4H PRN Pain MILD(1-3)/Fever >100.5/NOWAK Lipase/Protease/Amylase 1 each 11/02/18 07:30 11/02/18 12:[address] 12,000 Units PO 1 each AC [facility] Administration Cholestyramine Resin 4 gm 11/02/18 10:00 11/02/18 09:27 Questran PO 4 gm BID [facility] Administration Enoxaparin Sodium 40 mg 11/02/18 22:00 Lovenox SUB-Q QDAY@2200 [facility] Hydromorphone HCl 0.5 mg 11/01/18 22:40 11/02/18 12:36 Dilaudid IV 0.5 mg Q3H PRN Administration Pain , Severe (7-10) Piperacillin Sod/Tazobactam Sod 4.5 gm in 100 mls @ 200 mls/hr 11/01/18 16:30 11/02/18 05:32 Zosyn/Ns 4.5gm/100ml IV 200 mls/hr Q8HR [facility] Administration Protocol Vancomycin HCl 1,250 mg/ 275 mls @ 166.667 mls/hr 11/02/18 08:00 11/02/18 08:45 Sodium Chloride IV 166.667 mls/hr Q12H [facility] Administration Sodium Chloride 1,000 mls @ 100 mls/hr 11/01/18 23:00 11/02/18 00:56 Nacl 0.9% 1000 Ml IV 100 mls/hr DIRECT [facility] Administration Insulin Human Lispro 0 unit 11/02/18 07:30 Humalog SUB-Q ACHS [facility] Protocol Metoclopramide HCl 10 mg 11/01/18 22:40 Reglan IV Q6H PRN Nausea And Vomiting Ondansetron HCl 4 mg 11/01/18 22:40 Zofran IV Q8H PRN Nausea And Vomiting Oxycodone/Acetaminophen 1 tab 11/02/18 06:36 Percocet 5/325 PO Q6HR PRN Pain Pantoprazole Sodium 40 mg 11/02/18 10:00 11/02/18 09:20 Protonix PO 40 mg QDAY [facility] Administration Pregabalin 75 mg 11/02/18 10:00 11/02/18 09:20 Lyrica PO 75 mg BID [facility] Administration Sodium Chloride 10 ml 11/02/18 10:00 11/02/18 09:28 Sodium Chloride Flush Syringe 10 Ml IV 10 ml BID [facility] Administration Sodium Chloride 10 ml 11/01/18 22:40 Sodium Chloride Flush Syringe 10 Ml IV PRN PRN LINE FLUSH Sodium Hypochlorite 1 applic 11/02/18 12:08 Dakin's Half Strength TP Q12H PRN Wound Care Spironolactone 25 mg 11/02/18 10:00 11/02/18 09:20 Aldactone PO 25 mg QDAY [facility] Administration Torsemide 40 mg 11/02/18 07:00 11/02/18 12:12 Demadex PO 40 mg BID@0600,1800 [facility] Administration Nutrition/Malnutrition Assess - Dietary Evaluation Nutrition/Malnutrition Findings: Nutrition Notes Start: 11/02/18 11:58 Freq: Status: Active Protocol: Document 11/02/18 11:58 LP (Rec: 11/02/18 12:05 LP [id number]) Nutrition Notes Need for Assessment generated from: MD Order Initial or Follow up Assessment Current Diagnosis Decubitus(Pressure Ulcer), Diabetes,Sepsis,Hypertension Other Pertinent Diagnosis multiple wounds Current Diet Cardiac/consistent CHO Labs/Tests BUN 62 BG 59 Pertinent Medications Reviewed Height 6 ft 4 in Weight 81.2 kg [place] Body Weight (kg) 91.81 BMI 21.7 Subjective/Other Information Consult for oral supplement, but pt states supplements make him have diarrhea. Pt would like double portions. Cristian makes him have diarrhea as well. Food preferences noted. Burn Absent Trauma Absent Body Fat Depletion Moderate depletion (severe) Muscle Mass Moderate Depletion (severe) #2 Nutrition Diagnosis Increased nutrient needs ( specify in comment below) Comments: Protein Etiology Wound healing As Evidenced by Signs and Symptoms Pt with multiple wounds and malnutrition #1 Nutrition Diagnosis Malnutrition Etiology chronic illness As Evidenced by Signs and Symptoms Pt with multiple wounds, muscle and fat depletion Is patient on ventilator? No Is Patient Ambulatory and/or Out of Bed No REE-([facility]-confined to bed) [phone] Calculation Used for Recommendations [facility] Additional Notes Protein needs are 97-122g (1.2 -1.5g/kg) Fluid needs are 1ml/kcal Nutrition Intervention Change Diet Order: Continue Add Supplement/Snack (indicate name/kcal Double portions /protein ) Goal #1 Meet at least 80% of kcal and protein needs Goal #2 Wound healing Goal #3 Wt gain/maintenance Anticipated Discharge Needs: Cardiac consistent CHO with extra protein Follow-Up By: 11/04/18 Additional Comments Follow for intakes
--- NOTE | 2018-11-02 15:26 | Consultation ---
History of Present Illness Consult date: 11/02/18 Requesting physician: LIAM SAHA Consult reason: pre op evaluation History of present illness: The pt is a 48 YO male with a past medical history of bilateral below knee amputations, gangrene, HTN, HLP, DM, atrial fibrillation s/p reported cardioversion at [place] 2 years ago (and he reports he has maintained NSR since that time), anemia requiring blood transfusions, depression, sleep apnea. He is previously unknown to our practice. 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 He is currently a resident at [facility]. He presented with c/o lower back/sacral pain. He has a sacral decubitus wound. He states that he was also told by [facility] staff that he was anemic and needed a blood transfusion and was referred to ED by his [facility]. Upon arrival, pt was found to have sepsis, lactic acidosis, pneumonia, sacral wound, FLAVIO, anemia. Pt also noted to have elevated troponins. Pt denies any cardiac complaints, including chest pain, palpitations, n/v, diaphoresis, dizziness or syncope. He was noted to be in AFib RVR HR 130s on arrival to ED. He was given IV fluid and subsequently converted to NSR and has maintained NSR since admission. Pt states he was taking Eliquis until "recently" when this medication was "discontinued by someone". General surgery has recommended debridement of sacral wound and thus cardiology has been consulted for pre-operative cardiac risk stratification. Past History Past Medical History: atrial fib, diabetes, hypertension, hyperlipidemia Past Surgical History: Other (bilateral BKA) Social history: other (lives in facility). denies: smoking, alcohol abuse Family history: diabetes, hypertension Medications and Allergies Allergies Allergy/AdvReac Type Severity Reaction Status Date / Time lactose AdvReac Diarrhea Verified 11/02/18 11:58 Home Medications Medication Instructions Recorded Confirmed Last Taken Type Amitriptyline [Elavil] 15 mg PO QHS 11/02/18 11/02/18 1 Day Ago History ~11/01/18 Ascorbic Acid [Vitamin C with Fouzia 500 mg PO BID 11/02/18 11/02/18 1 Day Ago History Hips] ~11/01/18 Carvedilol [Coreg] 3.125 mg PO BID 11/02/18 11/02/18 1 Day Ago History ~11/01/18 Cholestyramine (with Sugar) 4 gm PO BID 11/02/18 11/02/18 1 Day Ago History [Cholestyramine Packet] ~11/01/18 DULoxetine [Cymbalta] 30 mg PO QDAY 11/02/18 11/02/18 1 Day Ago History ~11/01/18 Gabapentin [Neurontin] 300 mg PO Q8HR 11/02/18 11/02/18 1 Day Ago History ~11/01/18 Lipase/Protease/Amylase [Garth Rodriguez 12,000 units PO AC 11/02/18 11/02/18 1 Day Ago History 12,000 Units Capsule] ~11/01/18 Multivitamin Tab W-MINERAL 1 each PO QD 11/02/18 11/02/18 1 Day Ago History [Multiple Vitamin/Mineral ~11/01/18 (Theragran M)] Pantoprazole Sodium [Protonix] 40 mg PO QDAY 11/02/18 11/02/18 1 Day Ago History ~11/01/18 Pregabalin [Lyrica] 75 mg PO BID 11/02/18 11/02/18 1 Day Ago History ~11/01/18 Spironolactone [Aldactone] 25 mg PO QDAY 11/02/18 11/02/18 1 Day Ago History ~11/01/18 Torsemide [Demadex] 40 mg PO BID 11/02/18 11/02/18 1 Day Ago History ~11/01/18 hydrALAZINE [Apresoline] 75 mg PO Q8HR 11/02/18 11/02/18 1 Day Ago History ~11/01/18 oxyCODONE /ACETAMINOPHEN [Percocet 1 tab PO Q6HR PRN 11/02/18 11/02/18 1 Day Ago History 5/325] ~11/01/18 Active Meds: Active Medications Acetaminophen (Tylenol) 650 mg PO Q4H PRN PRN Reason: Pain MILD(1-3)/Fever >100.5/NOWAK Lipase/Protease/Amylase (Garth Rodriguez 12,000 Units) 1 each PO AC [facility] Last Admin: 11/02/18 12:13 Dose: 1 each Documented by: Cholestyramine Resin (Questran) 4 gm PO BID [facility] Last Admin: 11/02/18 09:27 Dose: 4 gm Documented by: Enoxaparin Sodium (Lovenox) 40 mg SUB-Q QDAY@2200 YURI Hydromorphone HCl (Dilaudid) 0.5 mg IV Q3H PRN PRN Reason: Pain , Severe (7-10) Last Admin: 11/02/18 12:36 Dose: 0.5 mg Documented by: Piperacillin Sod/Tazobactam Sod (Zosyn/Ns 4.5gm/100ml) 4.5 gm in 100 mls @ 200 mls/hr IV Q8HR [facility]; Protocol Last Admin: 11/02/18 15:01 Dose: 200 mls/hr Documented by: Vancomycin HCl 1,250 mg/ (Sodium Chloride) 275 mls @ 166.667 mls/hr IV Q12H [facility] Last Admin: 11/02/18 08:45 Dose: 166.667 mls/hr Documented by: Sodium Chloride (Nacl 0.9% 1000 Ml) 1,000 mls @ 100 mls/hr IV DIRECT [facility] Last Admin: 11/02/18 00:56 Dose: 100 mls/hr Documented by: Insulin Human Lispro (Humalog) 0 unit SUB-Q ACHS [facility]; Protocol Last Admin: 11/02/18 11:30 Dose: Not Given Documented by: Metoclopramide HCl (Reglan) 10 mg IV Q6H PRN PRN Reason: Nausea And Vomiting Ondansetron HCl (Zofran) 4 mg IV Q8H PRN PRN Reason: Nausea And Vomiting Oxycodone/Acetaminophen (Percocet 5/325) 1 tab PO Q6HR PRN PRN Reason: Pain Pantoprazole Sodium (Protonix) 40 mg PO QDAY [facility] Last Admin: 11/02/18 09:20 Dose: 40 mg Documented by: Pregabalin (Lyrica) 75 mg PO BID [facility] Last Admin: 11/02/18 09:20 Dose: 75 mg Documented by: Sodium Chloride (Sodium Chloride Flush Syringe 10 Ml) 10 ml IV BID [facility] Last Admin: 11/02/18 09:28 Dose: 10 ml Documented by: Sodium Chloride (Sodium Chloride Flush Syringe 10 Ml) 10 ml IV PRN PRN PRN Reason: LINE FLUSH Sodium Hypochlorite (Dakin's Half Strength) 1 applic TP Q12H PRN PRN Reason: Wound Care Spironolactone (Aldactone) 25 mg PO QDAY [facility] Last Admin: 11/02/18 09:20 Dose: 25 mg Documented by: Torsemide (Demadex) 40 mg PO BID@0600,1800 [facility] Last Admin: 11/02/18 12:12 Dose: 40 mg Documented by: Review of Systems Constitutional: no weight loss, no weight gain Ears, nose, mouth and throat: no ear pain, no nose pain, no sinus pressure, no sinus pain Cardiovascular: no chest pain, no orthopnea, no palpitations, no rapid/irregular heart beat, no edema, no syncope, no lightheadedness, no shortness of breath, no dyspnea on exertion, no high blood pressure Respiratory: cough, no shortness of breath, no dyspnea on exertion, no congestion, no wheezing, no pain on inspiration Gastrointestinal: no abdominal pain, no nausea, no vomiting, no diarrhea, no constipation, no change in bowel habits Genitourinary Male: no dysuria, no hematuria, no flank pain, no urinary frequency, no urinary hesitancy Musculoskeletal: low back pain, no neck stiffness, no neck pain, no shooting arm pain, no arm numbness/tingling Integumentary: no rash, no pruritis Neurological: no head injury, no paralysis, no weakness, no parathesias, no numbness, no tingling, no seizures, no syncope Psychiatric: depression, hopelessness, no anxiety Endocrine: no cold intolerance, no heat intolerance Hematologic/Lymphatic: no easy bruising, no easy bleeding Allergic/Immunologic: no urticaria Physical Examination Vital Signs Temp Pulse Resp BP Pulse Ox 97.6 F 98 H 20 74/48 98 11/01/18 15:36 11/01/18 15:36 11/01/18 15:36 11/01/18 15:36 11/01/18 15:36 General appearance: no acute distress HEENT: Positive: PERRL, Normocephaly, Mucus Membranes Moist Neck: Positive: neck supple, trachea midline Cardiac: Positive: Reg Rate and Rhythm, S1/S2 Lungs: Positive: Decreased Breath Sounds Neuro: Positive: Grossly Intact Abdomen: Negative: Tender Skin: Positive: Other (sacral ulcer ) Musculoskeletal: other (s/p bilateral BKA) Results 11/02/18 02:49 11/02/18 02:49 Cardiac Enzymes 11/01/18 11/02/18 Range/Units 15:53 02:49 AST 15 16 (5-40) units/L Lipids 11/01/18 Range/Units 15:53 Triglycerides 34 (2-149) mg/dL Cholesterol 54 (50-199) mg/dL HDL Cholesterol 25 L (40-59) mg/dL Cholesterol/HDL Ratio 2.16 % CBC 11/01/18 11/02/18 Range/Units 15:53 02:49 WBC 23.2 H 26.5 H (4.5-11.0) K/mm3 RBC 3.05 L 3.37 L (3.65-5.03) M/mm3 Hgb 7.5 L 8.3 L (11.8-15.2) gm/dl Hct 24.2 L 26.4 L (35.5-45.6) % Plt Count 212 214 (140-440) K/mm3 Comprehensive Metabolic Panel 11/01/18 11/02/18 Range/Units 15:53 02:49 Sodium 142 145 (137-145) mmol/L Potassium 4.2 4.5 (3.6-5.0) mmol/L Chloride 108.0 H 109.2 H (98-107) mmol/L Carbon Dioxide 18 L 19 L (22-30) mmol/L BUN 62 H 62 H (9-20) mg/dL Creatinine 1.4 1.4 (0.8-1.5) mg/dL Glucose 91 59 L (75-100) mg/dL Calcium 7.3 L 6.9 L (8.4-10.2) mg/dL AST 15 16 (5-40) units/L ALT 6 L 7 (7-56) units/L Alkaline Phosphatase 113 144 H (35-129) units/L Total Protein 6.3 6.5 (6.3-8.2) g/dL Albumin 1.3 L 1.6 L (3.9-5) g/dL - Imaging and Cardiology Echo: pending EKG: report reviewed, image reviewed EKG interpretations - Telemetry EKG Rhythm: Sinus Rhythm - EKG Supraventricular dysrhythmia: atrial fibrillation Assessment and Plan Sepsis / lactic acidosis / pneumonia IVF and IV abx per primary/ID. ID team following. Blood cultures in progress. Sacral decubitus wound Per ID team, high concern for osteomyelitis, wound likely down to the bone. Will need 6 weeks of IV antibiotics. Recommend MRI of the sacrum. Per general surgery team, will need debridement of sacral wound in OR as patient has sensation in the sacral area and pain. Will need to obtain deep cultures. NSTEMI type II Pt denies any occurrence of cardiac symptoms. ECG with no acute ischemic changes. Nery trending downwards. Cont to trend Nery and obtain serial ECGs. Plan for lexiscan MPI stress test in AM. NPO after MN. Obtain echo. Atrial fibrillation --> SR Pt reports h/o atrial fibrillation requiring cardioversion at [place] 2 years ago (he reports he has maintained NSR since that time). Pt also states he was taking Eliquis until "recently" when this medication was "discontinued by someone". Initiate lopressor. Pt currently in NSR. Bout of AFib RVR noted in ED was likely precipitated by sepsis. Will not initiate systemic AC at this time in setting of anemia and impending surgery. If he is noted to have paroxysms of AFib on telemetry, can consider heparin gtt until surgery and then resume Eliquis post- operatively. Cont observation on telemetry. Anemia Pt reports h/o anemia requiring blood transfusion. Monitor CBC. Consider GI consultation per primary. HTN Initiate lopressor and titrate as necessary for BP optimization. DM Hgb A1c 4.7. H/o gangrene, s/p BLE BKA Malnutrition Albumin 1.6. Dietitian consultation pending. Will obtain echo and plan for lexiscan MPI stress test in AM. Will provide pre- operative cardiac risk stratification pending the results of these studies. The patient has been seen in conjunction with Dr. Hayes who agrees with the assessment and plan of care.
[2018-11-02 19:05] LABS: Bilirubin,Urine NEG (Negative); Blood,Urine SM (Negative); Color,Urine Amber (Yellow); Mucus,Urine FEW /HPF; Triple Phosphate Crystal,Urine 3+; Urobilinogen,Urine < 2.0 mg/dL (<2.0)
[2018-11-02] MEDS: LOPRESSOR PO SCH (21:29)
[2018-11-02] MEDS: LOVENOX SUB-Q SCH (21:30)
[2018-11-03] MEDS: DEMADEX PO SCH ×2 (05:47→20:58)
[2018-11-03] MEDS: ZOSYN/NS 4.5GM/100ML 4.5 GM/100 ML VIAL IV SCH ×3 (05:47→22:00)
[2018-11-03 06:10] LABS: BUN/Creatinine Ratio 41; Blood Urea Nitrogen 58 mg/dL (9-20); Calcium 6.9 mg/dL (8.4-10.2); Hemolysis Index 0
[2018-11-03 06:52] LABS: Basophils % (Auto) 0.1 % (0.0-1.8); Eosinophils % (Auto) 0.1 % (0.0-4.3); Hematocrit 23.5 % (35.5-45.6); Hemoglobin 7.5 gm/dl (11.8-15.2); Lymphocytes # (Auto) 1.2 K/mm3 (1.2-5.4); Lymphocytes % (Auto) 5.8 % (13.4-35.0); Mean Corpuscular HGB Conc 32 % (32-34); Mean Corpuscular Volume 76 fl (84-94); Monocytes # (Auto) 0.9 K/mm3 (0.0-0.8); Monocytes % (Auto) 4.5 % (0.0-7.3); Platelet Count 211 K/mm3 (140-440); Red Blood Count 3.09 M/mm3 (3.65-5.03)
[2018-11-03 06:58] LABS: Red Cell Distribution Width 20.1 % (13.2-15.2)
[2018-11-03] MEDS ORDERED: LEXISCAN IV ONE (07:15)
[2018-11-03] MEDS: HumaLOG SUB-Q SCH ×3 (08:26→21:21)
[2018-11-03] MEDS: CREON DR 12,000 UNITS PO SCH ×2 (08:26→16:30)
[2018-11-03] MEDS: DILAUDID IV PRN ×2 (09:55→15:54)
[2018-11-03 09:57] LABS: Erythrocyte Sedimentation Rate 85 mm/Hr (0-20)
--- NOTE | 2018-11-03 11:39 | Progress Note ---
Assessment and Plan Sepsis / lactic acidosis / pneumonia IVF and IV abx per primary/ID. ID team following. One blood culture is preliminarily positive for coag negative staphylococcus. Sacral decubitus wound Per ID team, high concern for osteomyelitis, wound likely down to the bone. Will need 6 weeks of IV antibiotics. Recommend MRI of the sacrum. Per general surgery team, will need debridement of sacral wound in OR as patient has sensation in the sacral area and pain. Will need to obtain deep cultures. NSTEMI type II Pt denies any occurrence of cardiac symptoms. ECG with no acute ischemic changes. Echo reviewed - EF 50-55%, LA mildly dilated, small pericardial effusion, left pleural effusion. Proceed with lexiscan MPI stress test. Await findings. Atrial fibrillation --> SR Pt reports h/o atrial fibrillation requiring cardioversion at [place] 2 years ago (he reports he has maintained NSR since that time). Pt also states he was taking Eliquis until "recently" when this medication was "discontinued by someone". Cont lopressor. Pt currently in NSR. Bout of AFib RVR noted in ED was likely precipitated by sepsis. Will not initiate systemic AC at this time in setting of anemia and impending surgery. If he is noted to have paroxysms of AFib on telemetry, can consider heparin gtt until surgery and then resume Eliquis post- operatively. Cont observation on telemetry. Anemia Pt reports h/o anemia requiring blood transfusion. Monitor CBC. Consider GI consultation per primary. HTN Stable. Cont lopressor. DM Hgb A1c 4.7. H/o gangrene, s/p BLE BKA Malnutrition Albumin 1.6. Echo reviewed - EF 50-55%, LA mildly dilated, small pericardial effusion, left pleural effusion. Proceed with lexiscan MPI stress test. Await findings. Will provide pre- operative cardiac risk stratification pending the result of stress test. The patient has been seen in conjunction with Dr. Hayes who agrees with the assessment and plan of care. Subjective Date of service: 11/03/18 Principal diagnosis: sepsis Interval history: pt for stress test today, no current cardiac complaints. tele reviewed - in SR. Objective Last Vital Signs Temp 98.2 F 11/03/18 07:47 Pulse 67 11/03/18 09:15 Resp 18 11/03/18 07:47 BP 129/75 11/03/18 10:56 Pulse Ox 96 11/03/18 07:47 - Physical Examination General: No Apparent Distress HEENT: Positive: PERRL, Normocephaly, Mucus Membranes Moist Neck: Positive: neck supple, trachea midline Cardiac: Positive: Reg Rate and Rhythm, S1/S2 Lungs: Positive: Decreased Breath Sounds Neuro: Positive: Grossly Intact Abdomen: Negative: Tender Skin: Positive: Other (sacral ulcer ) Musculoskeletal: other (s/p bilateral BKA) - Labs and Meds CBC 11/03/18 Range/Units 05:19 WBC 20.0 H (4.5-11.0) K/mm3 RBC 3.09 L (3.65-5.03) M/mm3 Hgb 7.5 L (11.8-15.2) gm/dl Hct 23.5 L (35.5-45.6) % Plt Count 211 (140-440) K/mm3 Lymph # 1.2 (1.2-5.4) K/mm3 [place] # 0.9 H (0.0-0.8) K/mm3 Eos # 0.0 (0.0-0.4) K/mm3 Baso # 0.0 (0.0-0.1) K/mm3 Comprehensive Metabolic Panel 11/03/18 Range/Units 05:19 Sodium 144 (137-145) mmol/L Potassium 4.2 (3.6-5.0) mmol/L Chloride 111.2 H (98-107) mmol/L Carbon Dioxide 24 (22-30) mmol/L BUN 58 H (9-20) mg/dL Creatinine 1.4 (0.8-1.5) mg/dL Glucose 57 L (75-100) mg/dL Calcium 6.9 L (8.4-10.2) mg/dL - Imaging and Cardiology EKG: report reviewed, image reviewed Echo: pending
--- NOTE | 2018-11-03 11:59 | Progress Note ---
Assessment and Plan Cultures: 11/01/18 Blood: CoNS, 1 out of 4 bottles A/P: 48 yo M with PMHx of bilateral BKA, HTN, afib, DM2, sleep apnea admitted with sacral decubitus ulcer, pneumonia and penile discharge. 1. Sepsis secondary to pneumonia - seen on CXR, would continue antibiotics with pip/tazo and vanco for now given myriad of infectious processes. Not short of breath currently. CRP 14.3. Blood CX CoNS 2. CoNS Bacteremia: blood cultures 1 out of 4 bottles. likely a contaminant. Will order repeat blood cultures. 3. Sacral decubitus ulcer - high concern for osteomyelitis, wound likely down to the bone. Will need 6 weeks of IV antibiotics. Recommend MRI of the sacrum. Discussed with surgery to obtain deep wound or bone cultures during debridement. 4. Penile discharge - swabbed with [employer], doesn't entirely appear to be discharge. Appears to be lesion on penis. 5. Hx of BKA 6. HTn 7. Afib 8. DM2 Recs: continue vancomycin Continue pip-tazo monitor renal function on vanco/pip-tazo with daily serum creatinine Follow up MRI of sacrum follow-up deep wound/bone cultures from debridement vanc trough after 4th dose Order repeat blood cultures and CBC for tomorrow Would strongly consider urology consult. follow-up urine gonorrhea and chlamydia (low risk; ordered) follow-up culture of penile discharge/lesion [facility] M: [phone] O:[phone] Subjective Date of service: 11/03/18 Principal diagnosis: sepsis Interval history: Patient seen and examined. Laying in bed, reports no acute distress or generalized weakness . No fevers. Objective - Exam Narrative Exam: Constitutional: awake, no distress, following commands Head, Ears, Nose: Normocephalic, atraumatic. External ears, nose normal Eyes: Conjunctivae/corneas clear. No icterus. No ptosis. Neck: Supple, no meningeal signs Oral: fair dentition, moist mucous membranes Cardiovascular: S1, S2 normal. Normal rhythm Respiratory: Good air entry, clear to auscultation bilaterally GI: Soft, non-tender; bowel sounds normal. No peritoneal signs : yellowish discharge/lesion on inferior aspect of penis, below the meatus. Unable to be easily wipe away Musculoskeletal: 3x wounds, deep. No obvious purulence. Bilateral BKA. Skin: No rash or abscess Hem/Lymphatic: No palpable cervical or supraclavicular nodes. No lymphangitis Psych: no agitation Neurological: Moves all extremities, no focal defects - Constitutional Vitals: Vital Signs Temp Pulse Resp BP Pulse Ox 98.2 F 67 18 129/75 96 11/03/18 07:47 11/03/18 09:15 11/03/18 07:47 11/03/18 10:56 11/03/18 07:47 Temperature -Last 24 Hours Temperature 98.2 F Temperature 98.3 F Temperature 98.0 F Temperature 97.6 F Temperature 97.2 F - Labs CBC & Chem 7: 11/03/18 05:19 11/03/18 05:19 Labs: Abnormal lab results 11/02/18 11/02/18 11/02/18 Range/Units 15:19 18:10 21:30 WBC (4.5-11.0) K/mm3 RBC (3.65-5.03) M/mm3 Hgb (11.8-15.2) gm/dl Hct (35.5-45.6) % MCV (84-94) fl MCH (28-32) pg RDW (13.2-15.2) % Lymph % (Auto) (13.4-35.0) % [place] # (0.0-0.8) K/mm3 Seg Neutrophils % (40.0-70.0) % Seg Neutrophils # (1.8-7.7) K/mm3 Chloride (98-107) mmol/L BUN (9-20) mg/dL Glucose (75-100) mg/dL POC Glucose (70-105) Calcium (8.4-10.2) mg/dL Troponin T 0.306 H* D 0.429 H* D (0.00-0.029) ng/mL C-Reactive Protein (0.00-1.30) mg/dL Urine pH 9.0 H (5.0-7.0) Urine WBC (Auto) 58.0 H (0.0-6.0) /HPF 11/03/18 11/03/18 11/03/18 Range/Units 05:19 05:19 05:19 WBC 20.0 H (4.5-11.0) K/mm3 RBC 3.09 L (3.65-5.03) M/mm3 Hgb 7.5 L (11.8-15.2) gm/dl Hct 23.5 L (35.5-45.6) % MCV 76 L (84-94) fl MCH 24 L (28-32) pg RDW 20.1 H (13.2-15.2) % Lymph % (Auto) 5.8 L (13.4-35.0) % [place] # 0.9 H (0.0-0.8) K/mm3 Seg Neutrophils % 89.5 H (40.0-70.0) % Seg Neutrophils # 17.9 H (1.8-7.7) K/mm3 Chloride 111.2 H (98-107) mmol/L BUN 58 H (9-20) mg/dL Glucose 57 L (75-100) mg/dL POC Glucose (70-105) Calcium 6.9 L (8.4-10.2) mg/dL Troponin T (0.00-0.029) ng/mL C-Reactive Protein 14.30 H (0.00-1.30) mg/dL Urine pH (5.0-7.0) Urine WBC (Auto) (0.0-6.0) /HPF /10/15 Range/Units 08:18 WBC (4.5-11.0) K/mm3 RBC (3.65-5.03) M/mm3 Hgb (11.8-15.2) gm/dl Hct (35.5-45.6) % MCV (84-94) fl MCH (28-32) pg RDW (13.2-15.2) % Lymph % (Auto) (13.4-35.0) % [place] # (0.0-0.8) K/mm3 Seg Neutrophils % (40.0-70.0) % Seg Neutrophils # (1.8-7.7) K/mm3 Chloride (98-107) mmol/L BUN (9-20) mg/dL Glucose (75-100) mg/dL POC Glucose 144 H (70-105) Calcium (8.4-10.2) mg/dL Troponin T (0.00-0.029) ng/mL C-Reactive Protein (0.00-1.30) mg/dL Urine pH (5.0-7.0) Urine WBC (Auto) (0.0-6.0) /HPF
--- NOTE | 2018-11-03 12:42 | Event Note ---
Date: 11/03/18 Patient off the floor for multiple diagnostic tests including echo, MRI, and stress test. Will schedule for surgical debridement of sacral and buttock wounds in the OR once preop risk assessment is completed by cardiology. Appreciate cardiology input.
--- NOTE | 2018-11-03 13:26 | Event Note ---
Date: 11/03/18 S/p lexiscan MPI stress test today which was negative. Currently stable cardiac status. Pt is at moderate cardiovascular risk for contemplated surgical debridement. There are no immediate cardiac contraindications to proceeding with surgery a this time. Mamta DAY NP / DR. RITTER
--- NOTE | 2018-11-03 13:55 | Progress Note ---
Assessment and Plan Assessment and plan: Sepsis secondary to pneumonia - seen on CXR, would continue antibiotics with pip/tazo and vanco for now given myriad of infectious processes. Not short of breath currently. Sacral decubitus ulcer - high concern for osteomyelitis, wound likely down to the bone. Will need 6 weeks of IV antibiotics. F/U MRI of the sacrum. Surgery to obtain deep wound or bone cultures during debridement. NSTEMI 2. Etiology probably secondary to #1. Pt with elevated troponin but denies any occurrence of cardiac symptoms. ECG with no acute ischemic changes. Echo revealed EF 50-55%, LA mildly dilated, small pericardial effusion, left pleural effusion. Stress test was found to be negative. Penile discharge - swabbed with APPLICATION SUPPORT CONSULTANT, doesn't entirely appear to be discharge. Appears to be lesion on penis. Hx of BKA Hypertension. Continue antihypertensive medications. Afib. Currently NSR. Cardiology Will not initiate systemic AC at this time in setting of anemia and impending surgery. Likely resume AC postoperatively. DM2. Continue Accu-Cheks and sliding scale insulin. Severe protein calorie malnutrition. Bead Builder consultation. History Interval history: New issues overnight. Hospitalist Physical - Constitutional Vitals: Temp Pulse Resp BP Pulse Ox 97.4 F L 76 14 146/83 98 11/03/18 13:04 11/03/18 13:04 11/03/18 13:04 11/03/18 13:04 11/03/18 13:04 General appearance: Present: no acute distress - EENT Eyes: Present: PERRL, EOM intact ENT: hearing intact, clear oral mucosa, dentition normal - Neck Neck: Present: supple, normal ROM - Respiratory Respiratory effort: normal Respiratory: bilateral: CTA - Cardiovascular Rhythm: regular Heart Sounds: Present: S1 & S2. Absent: gallop, rub - Extremities Extremities: no ischemia, No edema, Full ROM - Abdominal General gastrointestinal: soft, non-tender, non-distended, normal bowel sounds - Integumentary Integumentary: Present: clear, warm, dry - Neurologic Neurologic: CNII-XII intact, moves all extremities Results - Labs CBC & Chem 7: 11/03/18 05:19 11/03/18 05:19 Labs: Laboratory Last Values WBC 20.0 K/mm3 (4.5-11.0) H 11/03/18 05:19 RBC 3.09 M/mm3 (3.65-5.03) L 11/03/18 05:19 Hgb 7.5 gm/dl (11.8-15.2) L 11/03/18 05:19 Hct 23.5 % (35.5-45.6) L 11/03/18 05:19 MCV 76 fl (84-94) L 11/03/18 05:19 MCH 24 pg (28-32) L 11/03/18 05:19 MCHC 32 % (32-34) 11/03/18 05:19 RDW 20.1 % (13.2-15.2) H 11/03/18 05:19 Plt Count 211 K/mm3 (140-440) 11/03/18 05:19 Lymph % (Auto) 5.8 % (13.4-35.0) L 11/03/18 05:19 [place] % (Auto) 4.5 % (0.0-7.3) 11/03/18 05:19 Eos % (Auto) 0.1 % (0.0-4.3) 11/03/18 05:19 Baso % (Auto) 0.1 % (0.0-1.8) 11/03/18 05:19 Lymph # 1.2 K/mm3 (1.2-5.4) 11/03/18 05:19 [place] # 0.9 K/mm3 (0.0-0.8) H 11/03/18 05:19 Eos # 0.0 K/mm3 (0.0-0.4) 11/03/18 05:19 Baso # 0.0 K/mm3 (0.0-0.1) 11/03/18 05:19 Add Manual Diff Complete 11/02/18 02:49 Total Counted 100 11/02/18 02:49 Seg Neutrophils % 89.5 % (40.0-70.0) H 11/03/18 05:19 Seg Neuts % (Manual) 91.0 % (40.0-70.0) H 11/02/18 02:49 0 % 11/02/18 02:49 8.0 % (13.4-35.0) L 11/02/18 02:49 Reactive Lymphs % (Man) 0 % 11/02/18 02:49 1.0 % (0.0-7.3) 11/02/18 02:49 0 % (0.0-4.3) 11/02/18 02:49 0 % (0.0-1.8) 11/02/18 02:49 0 % 11/02/18 02:49 0 % 11/02/18 02:49 0 % 11/02/18 02:49 0 % 11/02/18 02:49 Nucleated RBC % Not Reportable 11/02/18 02:49 Seg Neutrophils # 17.9 K/mm3 (1.8-7.7) H 11/03/18 05:19 Seg Neutrophils # Man 24.1 K/mm3 (1.8-7.7) H 11/02/18 02:49 Band Neutrophils # 0.0 K/mm3 11/02/18 02:49 2.1 K/mm3 (1.2-5.4) 11/02/18 02:49 Abs React Lymphs (Man) 0.0 K/mm3 11/02/18 02:49 0.3 K/mm3 (0.0-0.8) 11/02/18 02:49 0.0 K/mm3 (0.0-0.4) 11/02/18 02:49 0.0 K/mm3 (0.0-0.1) 11/02/18 02:49 0.0 K/mm3 11/02/18 02:49 0.0 K/mm3 11/02/18 02:49 0.0 K/mm3 11/02/18 02:49 Blast Cells # 0.0 K/mm3 11/02/18 02:49 WBC Morphology Not Reportable 11/02/18 02:49 Hypersegmented Neuts Not Reportable 11/02/18 02:49 Hyposegmented Neuts Not Reportable 11/02/18 02:49 Hypogranular Neuts Not Reportable 11/02/18 02:49 Not Reportable 11/02/18 02:49 Not Reportable 11/02/18 02:49 Not Reportable 11/02/18 02:49 Not Reportable 11/02/18 02:49 Not Reportable 11/02/18 02:49 Not Reportable 11/02/18 02:49 Consistent w auto 11/02/18 02:49 Not Reportable 11/02/18 02:49 Plt Clumps, EDTA Not Reportable 11/02/18 02:49 Not Reportable 11/02/18 02:49 Not Reportable 11/02/18 02:49 Not Reportable 11/02/18 02:49 Plt Morphology Comment Giant platelets 11/02/18 02:49 RBC Morphology Not Reportable 11/02/18 02:49 Dimorphic RBCs Not Reportable 11/02/18 02:49 Not Reportable 11/02/18 02:49 Few 11/02/18 02:49 Not Reportable 11/02/18 02:49 1+ 11/02/18 02:49 Not Reportable 11/02/18 02:49 Not Reportable 11/02/18 02:49 Not Reportable 11/02/18 02:49 Not Reportable 11/02/18 02:49 Not Reportable 11/02/18 02:49 Not Reportable 11/02/18 02:49 Not Reportable 11/02/18 02:49 Not Reportable 11/02/18 02:49 Not Reportable 11/02/18 02:49 Not Reportable 11/02/18 02:49 Not Reportable 11/02/18 02:49 Not Reportable 11/02/18 02:49 Not Reportable 11/02/18 02:49 Not Reportable 11/02/18 02:49 Not Reportable 11/02/18 02:49 Acanthocytes (Spur) Not Reportable 11/02/18 02:49 Rouleaux Not Reportable 11/02/18 02:49 Not Reportable 11/02/18 02:49 Not Reportable 11/02/18 02:49 Not Reportable 11/02/18 02:49 ESR 85 mm/Hr (0-20) 11/03/18 05:19 Not Reportable 11/02/18 02:49 Hem Pathologist Commnt No 11/02/18 02:49 Sodium 144 mmol/L (137-145) 11/03/18 05:19 Potassium 4.2 mmol/L (3.6-5.0) 11/03/18 05:19 Chloride 111.2 mmol/L (98-107) H 11/03/18 05:19 Carbon Dioxide 24 mmol/L (22-30) 11/03/18 05:19 13 mmol/L 11/03/18 05:19 BUN 58 mg/dL (9-20) H 11/03/18 05:19 1.4 mg/dL (0.8-1.5) 11/03/18 05:19 Estimated GFR > 60 ml/min 11/03/18 05:19 41 % 11/03/18 05:19 Glucose 57 mg/dL (75-100) L 11/03/18 05:19 POC Glucose 144 (70-105) H 11/03/18 08:18 4.7 % (4-6) 11/01/18 23:29 Lactic Acid 1.80 mmol/L (0.7-2.0) 11/02/18 05:45 Calcium 6.9 mg/dL (8.4-10.2) L 11/03/18 05:19 0.40 mg/dL (0.1-1.2) 11/02/18 02:49 AST 16 units/L (5-40) 11/02/18 02:49 ALT 7 units/L (7-56) 11/02/18 02:49 144 units/L (35-129) H 11/02/18 02:49 0.429 ng/mL (0.00-0.029) H* D 11/02/18 21:30 14.30 mg/dL (0.00-1.30) H 11/03/18 05:19 NT-Pro-B Natriuret Pep 2622 pg/mL (0-450) H 11/01/18 15:53 6.5 g/dL (6.3-8.2) 11/02/18 02:49 1.6 g/dL (3.9-5) L 11/02/18 02:49 0.3 % 11/02/18 02:49 Triglycerides 34 mg/dL (2-149) 11/01/18 15:53 Cholesterol 54 mg/dL (50-199) 11/01/18 15:53 23 mg/dL (50-130) L 11/01/18 15:53 25 mg/dL (40-59) L 11/01/18 15:53 2.16 % 11/01/18 15:53 Elena (Yellow) 11/02/18 18:10 Cloudy (Clear) 11/02/18 18:10 9.0 (5.0-7.0) H 11/02/18 18:10 Ur Specific [place] 1.014 (1.003-1.030) 11/02/18 18:10 100 mg/dl mg/dL (Negative) 11/02/18 18:10 Neg mg/dL (Negative) 11/02/18 18:10 Neg mg/dL (Negative) 11/02/18 18:10 Sm (Negative) 11/02/18 18:10 Neg (Negative) 11/02/18 18:10 Neg (Negative) 11/02/18 18:10 < 2.0 mg/dL (<2.0) 11/02/18 18:10 Ur Leukocyte Esterase Lg (Negative) 11/02/18 18:10 58.0 /HPF (0.0-6.0) H 11/02/18 18:10 40.0 /HPF (0.0-6.0) 11/02/18 18:10 U Epithel Cells (Auto) 2.0 /HPF (0-13.0) 11/02/18 18:10 Triple Phos Crystals 3+ 11/02/18 18:10 Few /HPF 11/02/18 18:10 Active Medications - Current Medications Current Medications: Generic Name Dose Route Start Last Admin Trade Name Freq PRN Reason Stop Dose Admin Acetaminophen 650 mg 11/01/18 22:40 Tylenol PO Q4H PRN Pain MILD(1-3)/Fever >100.5/NOWAK Lipase/Protease/Amylase 1 each 11/02/18 07:30 11/03/18 08:26 Creana m Rodriguez 12,000 Units PO Not Given AC [facility] Cholestyramine Resin 4 gm 11/02/18 10:00 11/02/18 21:31 Questran PO 4 gm BID YURI Administration Enoxaparin Sodium 40 mg 11/02/18 22:00 11/02/18 21:30 Lovenox SUB-Q 40 mg QDAY@2200 [facility] Administration Hydromorphone HCl 0.5 mg 11/01/18 22:40 11/03/18 09:55 Dilaudid IV 0.5 mg Q3H PRN Administration Pain , Severe (7-10) Piperacillin Sod/Tazobactam Sod 4.5 gm in 100 mls @ 200 mls/hr 11/01/18 16:30 11/03/18 05:47 Zosyn/Ns 4.5gm/100ml IV 200 mls/hr Q8HR YURI Administration Protocol Vancomycin HCl 1,250 mg/ 275 mls @ 166.667 mls/hr 11/02/18 08:00 11/02/18 19:32 Sodium Chloride IV 166.667 mls/hr Q12H YURI Administration Sodium Chloride 1,000 mls @ 100 mls/hr 11/01/18 23:00 11/02/18 00:56 Nacl 0.9% 1000 Ml IV 100 mls/hr DIRECT YURI Administration Insulin Human Lispro 0 unit 11/02/18 07:30 11/03/18 08:26 Humalog SUB-Q Not Given ACHS [facility] Protocol Metoclopramide HCl 10 mg 11/01/18 22:40 Reglan IV Q6H PRN Nausea And Vomiting Metoprolol Tartrate 50 mg 11/02/18 22:00 11/02/18 21:29 Lopressor PO 50 mg BID YURI Administration Ondansetron HCl 4 mg 11/01/18 22:40 Zofran IV Q8H PRN Nausea And Vomiting Oxycodone/Acetaminophen 1 tab 11/02/18 06:36 Percocet 5/325 PO Q6HR PRN Pain Pantoprazole Sodium 40 mg 11/02/18 10:00 11/02/18 09:20 Protonix PO 40 mg QDAY YURI Administration Pregabalin 75 mg 11/02/18 10:00 11/02/18 21:30 Lyrica PO 75 mg BID YURI Administration Sodium Chloride 10 ml 11/02/18 10:00 11/02/18 21:31 Sodium Chloride Flush Syringe 10 Ml IV 10 ml BID YURI Administration Sodium Chloride 10 ml 11/01/18 22:40 Sodium Chloride Flush Syringe 10 Ml IV PRN PRN LINE FLUSH Sodium Hypochlorite 1 applic 11/02/18 12:08 Dakin's Half Strength TP Q12H PRN Wound Care Spironolactone 25 mg 11/02/18 10:00 11/02/18 09:20 Aldactone PO 25 mg QDAY YURI Administration Torsemide 40 mg 11/02/18 07:00 11/03/18 05:47 Demadex PO 40 mg BID@0600,1800 YURI Administration Nutrition/Malnutrition Assess - Dietary Evaluation Nutrition/Malnutrition Findings: Nutrition Notes Start: 11/02/18 11:58 Freq: Status: Active Protocol: Document 11/02/18 11:58 LP (Rec: 11/02/18 12:05 LP [id number]) Nutrition Notes Need for Assessment generated from: MD Order Initial or Follow up Assessment Current Diagnosis Decubitus(Pressure Ulcer), Diabetes,Sepsis,Hypertension Other Pertinent Diagnosis multiple wounds Current Diet Cardiac/consistent CHO Labs/Tests BUN 62 BG 59 Pertinent Medications Reviewed Height 6 ft 4 in Weight 81.2 kg Roe Body Weight (kg) 91.81 BMI 21.7 Subjective/Other Information Consult for oral supplement, but pt states supplements make him have diarrhea. Pt would like double portions. Cristian makes him have diarrhea as well. Food preferences noted. Burn Absent Trauma Absent Body Fat Depletion Moderate depletion (severe) Muscle Mass Moderate Depletion (severe) #2 Nutrition Diagnosis Increased nutrient needs ( specify in comment below) Comments: Protein Etiology Wound healing As Evidenced by Signs and Symptoms Pt with multiple wounds and malnutrition #1 Nutrition Diagnosis Malnutrition Etiology chronic illness As Evidenced by Signs and Symptoms Pt with multiple wounds, muscle and fat depletion Is patient on ventilator? No Is Patient Ambulatory and/or Out of Bed No REE-([place]-[facility]. Jeor-confined to bed) 2784.026 Calculation Used for Recommendations [place] or Additional Notes Protein needs are 97-122g (1.2 -1.5g/kg) Fluid needs are 1ml/kcal Nutrition Intervention Change Diet Order: Continue Add Supplement/Snack (indicate name/kcal Double portions /protein ) Goal #1 Meet at least 80% of kcal and protein needs Goal #2 Wound healing Goal #3 Wt gain/maintenance Anticipated Discharge Needs: Cardiac consistent CHO with extra protein Follow-Up By: 11/04/18 Additional Comments Follow for intakes
[2018-11-03] MEDS: SODIUM CHLORIDE FLUSH SYRINGE 10 ML IV SCH ×2 (15:00→22:11)
[2018-11-03] MEDS: NACL 0.9% 1000 ML 1,000 ML IV SCH (18:12)
[2018-11-03] MEDS ORDERED: D50W (25GM) Syringe IV ONE (19:02)
[2018-11-03] MEDS: VANCOMYCIN 1,250 MG in NACL 0.9% 250ML 250 ML IV SCH ×3 (20:24→20:29)
[2018-11-03] MEDS: QUESTRAN PO SCH (21:52)
[2018-11-03] MEDS: LYRICA PO SCH (21:52)
[2018-11-03] MEDS: LOPRESSOR PO SCH ×2 (21:59→22:00)
[2018-11-03] MEDS ORDERED: D10W 1,000 ML IV SCH (22:00)
[2018-11-03] MEDS: LOVENOX SUB-Q SCH (22:01)
[2018-11-03] MEDS: D5/0.45NS 1,000 ML IV SCH (23:14)
[2018-11-04 02:17] LABS: Hematocrit 22.6 % (35.5-45.6); Hemoglobin 7.4 gm/dl (11.8-15.2); Mean Corpuscular HGB Conc 33 % (32-34); Mean Corpuscular Volume 77 fl (84-94); Platelet Count 212 K/mm3 (140-440); Red Blood Count 2.95 M/mm3 (3.65-5.03)
[2018-11-04] MEDS: DILAUDID IV PRN ×4 (03:58→21:08)
[2018-11-04 04:02] LABS: Basophils % (Manual) 0 % (0.0-1.8); Eosinophils % (Manual) 0 % (0.0-4.3); Hypochromasia 1+; Total Cells Counted 100
[2018-11-04 04:03] LABS: Anisocytosis 1+; Large Platelets 1+; Ovalocytes 1+; Platelet Estimate Consistent w Auto; Tear Drop Cells 1+
[2018-11-04] MEDS: ZOSYN/NS 4.5GM/100ML 4.5 GM/100 ML VIAL IV SCH ×3 (06:12→22:05)
[2018-11-04] MEDS: DEMADEX PO SCH (06:12)
[2018-11-04] MEDS: CREON DR 12,000 UNITS PO SCH ×3 (08:36→16:46)
[2018-11-04] MEDS: HumaLOG SUB-Q SCH ×4 (08:50→22:10)
--- NOTE | 2018-11-04 09:52 | Progress Note ---
Assessment and Plan Cultures: 11/01/18 Blood: CoNS, 1 out of 4 bottles 11/02/18 Penis Foreskin: GNR 11/04/18 Blood: in progress A/P: 48 yo M with PMHx of bilateral BKA, HTN, afib, DM2, sleep apnea admitted with sacral decubitus ulcer, pneumonia and penile discharge. 1. Sepsis secondary to pneumonia - seen on CXR, would continue antibiotics with pip/tazo and vanco for now given myriad of infectious processes. Not short of breath currently. CRP 14.3. Blood CX CoNS 2. CoNS Bacteremia: blood cultures 1 out of 4 bottles. likely a contaminant. Will order repeat blood cultures. 3. Sacral decubitus ulcer - high concern for osteomyelitis, wound likely down to the bone. Will need 6 weeks of IV antibiotics. Recommend MRI of the sacrum. Discussed with surgery to obtain deep wound or bone cultures during debridement. 4. Penile discharge - swabbed with INTRANET DEVELOPER, doesn't entirely appear to be discharge. Appears to be lesion on penis. Cultures grew GNR. Will follow-up ID and susceptibility. 5. Hx of BKA 6. HTn 7. Afib 8. DM2 Recs: continue vancomycin Pk dosing, D3 Continue pip-tazo 4.5 gm every 8 hours, D4 Continue to monitor renal function on vanco/pip-tazo with daily serum creatinine Follow up MRI of sacrum follow-up deep wound/bone cultures from debridement vanc trough after 4th dose Would strongly consider urology consult. follow-up urine gonorrhea and chlamydia (low risk; ordered) follow-up Penis foreskin cultures [facility] M: [phone] O:[phone] Subjective Date of service: 11/04/18 Principal diagnosis: sepsis Interval history: Patient seen and examined. Laying in bed, reports no acute distress or generalized weakness . No fevers. Objective - Exam Narrative Exam: Constitutional: awake, no distress, following commands Head, Ears, Nose: Normocephalic, atraumatic. External ears, nose normal Eyes: Conjunctivae/corneas clear. No icterus. No ptosis. Neck: Supple, no meningeal signs Oral: fair dentition, moist mucous membranes Cardiovascular: S1, S2 normal. Normal rhythm Respiratory: Good air entry, clear to auscultation bilaterally GI: Soft, non-tender; bowel sounds normal. No peritoneal signs : yellowish discharge/lesion on inferior aspect of penis, below the meatus. Unable to be easily wipe away Musculoskeletal: 3x wounds, deep. No obvious purulence. Bilateral BKA. Skin: No rash or abscess Hem/Lymphatic: No palpable cervical or supraclavicular nodes. No lymphangitis Psych: no agitation Neurological: Moves all extremities, no focal defects - Constitutional Vitals: Vital Signs Temp Pulse Resp BP Pulse Ox 97.5 F L 65 18 149/90 98 11/04/18 05:59 11/04/18 05:59 11/04/18 05:59 11/04/18 05:59 11/04/18 05:59 Temperature -Last 24 Hours Temperature 97.5 F Temperature 99.0 F Temperature 97.2 F Temperature 97.4 F Temperature 97.4 F - Labs CBC & Chem 7: 11/04/18 01:23 11/03/18 05:19 Labs: Abnormal lab results 11/03/18 11/03/18 11/03/18 Range/Units 16:38 18:59 21:15 WBC (4.5-11.0) K/mm3 RBC (3.65-5.03) M/mm3 Hgb (11.8-15.2) gm/dl Hct (35.5-45.6) % MCV (84-94) fl MCH (28-32) pg RDW (13.2-15.2) % Seg Neuts % (Manual) (40.0-70.0) % Lymphocytes % (Manual) (13.4-35.0) % Seg Neutrophils # Man (1.8-7.7) K/mm3 Monocytes # (Manual) (0.0-0.8) K/mm3 POC Glucose < 40 L 55 L 59 L (70-105) 11/03/18 11/04/18 Range/Units 22:33 01:23 WBC 24.9 H (4.5-11.0) K/mm3 RBC 2.95 L (3.65-5.03) M/mm3 Hgb 7.4 L (11.8-15.2) gm/dl Hct 22.6 L (35.5-45.6) % MCV 77 L (84-94) fl MCH 25 L (28-32) pg RDW 20.0 H (13.2-15.2) % Seg Neuts % (Manual) 89.0 H (40.0-70.0) % Lymphocytes % (Manual) 7.0 L (13.4-35.0) % Seg Neutrophils # Man 22.2 H (1.8-7.7) K/mm3 Monocytes # (Manual) 1.0 H (0.0-0.8) K/mm3 POC Glucose 57 L (70-105)
--- NOTE | 2018-11-04 10:28 | Progress Note ---
Assessment and Plan Sepsis / lactic acidosis / pneumonia IVF and IV abx per primary/ID. ID team following. One blood culture is preliminarily positive for coag negative staphylococcus. Sacral decubitus wound Per ID team, high concern for osteomyelitis, wound likely down to the bone. Will need 6 weeks of IV antibiotics. Recommend MRI of the sacrum. Per general surgery team, will need debridement of sacral wound in OR as patient has sensation in the sacral area and pain. Will need to obtain deep cultures. NSTEMI type II Pt denies any occurrence of cardiac symptoms. ECG with no acute ischemic changes. Echo reviewed - EF 50-55%, LA mildly dilated, small pericardial effusion, left pleural effusion. S/p lexiscan MPI stress 11/03/2018 today which was negative. Atrial fibrillation --> SR Pt reports h/o atrial fibrillation requiring cardioversion at [place] 2 years ago (he reports he has maintained NSR since that time). Pt also states he was taking Eliquis until "recently" when this medication was "discontinued by someone". Cont lopressor. Pt currently in NSR. Bout of AFib RVR noted in ED was likely precipitated by sepsis. Will not initiate systemic AC at this time in setting of anemia and impending surgery. If he is noted to have paroxysms of AFib on telemetry, can consider heparin gtt until surgery and then resume Eliquis post- operatively. Cont observation on telemetry. Anemia Pt reports h/o anemia requiring blood transfusion. Monitor CBC. Consider GI consultation per primary. HTN Stable. Cont lopressor. DM Hgb A1c 4.7. H/o gangrene, s/p BLE BKA Malnutrition Albumin 1.6. Echo reviewed - EF 50-55%, LA mildly dilated, small pericardial effusion, left pleural effusion. S/p lexiscan MPI stress test yesterday which was negative. Currently stable cardiac status. Pt is at moderate cardiovascular risk for contemplated surgical debridement. There are no immediate cardiac contraindications to proceeding with surgery a this time. The patient has been seen in conjunction with Dr. Hayes who agrees with the assessment and plan of care. Subjective Date of service: 11/04/18 Principal diagnosis: sepsis Interval history: pt resting in bed, no current cardiac complaints. Objective Last Vital Signs Temp 97.5 F L 11/04/18 05:59 Pulse 65 11/04/18 05:59 Resp 18 11/04/18 05:59 BP 149/90 11/04/18 05:59 Pulse Ox 98 11/04/18 05:59 - Physical Examination General: No Apparent Distress HEENT: Positive: PERRL, Normocephaly, Mucus Membranes Moist Neck: Positive: neck supple, trachea midline Cardiac: Positive: Reg Rate and Rhythm, S1/S2 Lungs: Positive: Decreased Breath Sounds Neuro: Positive: Grossly Intact Abdomen: Negative: Tender Skin: Positive: Other (sacral ulcer ) Musculoskeletal: other (s/p bilateral BKA) - Labs and Meds CBC 11/04/18 Range/Units 01:23 WBC 24.9 H (4.5-11.0) K/mm3 RBC 2.95 L (3.65-5.03) M/mm3 Hgb 7.4 L (11.8-15.2) gm/dl Hct 22.6 L (35.5-45.6) % Plt Count 212 (140-440) K/mm3 - Imaging and Cardiology EKG: report reviewed, image reviewed Echo: pending
[2018-11-04] MEDS: LYRICA PO SCH ×2 (10:49→21:11)
[2018-11-04] MEDS: QUESTRAN PO SCH ×3 (10:50→21:12)
[2018-11-04] MEDS: PROTONIX PO SCH (10:50)
--- NOTE | 2018-11-04 10:57 | Progress Note ---
Assessment and Plan Assessment and plan: Sepsis secondary to pneumonia - seen on CXR, would continue antibiotics with pip/tazo and vanco for now given myriad of infectious processes. Not short of breath currently. Sacral decubitus ulcer - high concern for osteomyelitis, wound likely down to the bone. Will need 6 weeks of IV antibiotics. F/U MRI of the sacrum. Surgery to obtain deep wound or bone cultures during debridement. CoNS Bacteremia: blood cultures 1 out of 4 bottles. likely a contaminant. Will order repeat blood cultures. NSTEMI 2. Etiology probably secondary to #1. Pt with elevated troponin but denies any occurrence of cardiac symptoms. ECG with no acute ischemic changes. Echo revealed EF 50-55%, LA mildly dilated, small pericardial effusion, left pleural effusion. Stress test was found to be negative. Penile discharge - swabbed with BOX PERSON, doesn't entirely appear to be discharge. Appears to be lesion on penis. Hx of BKA Hypertension. Continue antihypertensive medications. Afib. Currently NSR. Cardiology Will not initiate systemic AC at this time in setting of anemia and impending surgery. Likely resume AC postoperatively. DM2. Continue Accu-Cheks and sliding scale insulin. Severe protein calorie malnutrition. History Interval history: New issues overnight. Hospitalist Physical - Constitutional Vitals: Temp Pulse Resp BP Pulse Ox 97.5 F L 65 18 149/90 98 11/04/18 05:59 11/04/18 05:59 11/04/18 05:59 11/04/18 05:59 11/04/18 05:59 General appearance: Present: no acute distress - EENT Eyes: Present: PERRL, EOM intact ENT: hearing intact, clear oral mucosa, dentition normal - Neck Neck: Present: supple, normal ROM - Respiratory Respiratory effort: normal Respiratory: bilateral: CTA - Cardiovascular Rhythm: regular Heart Sounds: Present: S1 & S2. Absent: gallop, rub - Extremities Extremities: no ischemia, No edema, Full ROM - Abdominal General gastrointestinal: soft, non-tender, non-distended, normal bowel sounds - Integumentary Integumentary: Present: clear, warm, dry - Neurologic Neurologic: CNII-XII intact, moves all extremities Results - Labs CBC & Chem 7: 11/04/18 01:23 11/03/18 05:19 Labs: Laboratory Last Values WBC 24.9 K/mm3 (4.5-11.0) H 11/04/18 01:23 RBC 2.95 M/mm3 (3.65-5.03) L 11/04/18 01:23 Hgb 7.4 gm/dl (11.8-15.2) L 11/04/18 01:23 Hct 22.6 % (35.5-45.6) L 11/04/18 01:23 MCV 77 fl (84-94) L 11/04/18 01:23 MCH 25 pg (28-32) L 11/04/18 01:23 MCHC 33 % (32-34) 11/04/18 01:23 RDW 20.0 % (13.2-15.2) H 11/04/18 01:23 Plt Count 212 K/mm3 (140-440) 11/04/18 01:23 Lymph % (Auto) 5.8 % (13.4-35.0) L 11/03/18 05:19 Hendricks % (Auto) 4.5 % (0.0-7.3) 11/03/18 05:19 Eos % (Auto) 0.1 % (0.0-4.3) 11/03/18 05:19 Baso % (Auto) 0.1 % (0.0-1.8) 11/03/18 05:19 Lymph # 1.2 K/mm3 (1.2-5.4) 11/03/18 05:19 Hendricks # 0.9 K/mm3 (0.0-0.8) H 11/03/18 05:19 Eos # 0.0 K/mm3 (0.0-0.4) 11/03/18 05:19 Baso # 0.0 K/mm3 (0.0-0.1) 11/03/18 05:19 Add Manual Diff Complete 11/04/18 01:23 Total Counted 100 11/04/18 01:23 Seg Neutrophils % Admissions Specialist 11/04/18 01:23 Seg Neuts % (Manual) 89.0 % (40.0-70.0) H 11/04/18 01:23 0 % 11/04/18 01:23 7.0 % (13.4-35.0) L 11/04/18 01:23 Reactive Lymphs % (Man) 0 % 11/04/18 01:23 4.0 % (0.0-7.3) 11/04/18 01:23 0 % (0.0-4.3) 11/04/18 01:23 0 % (0.0-1.8) 11/04/18 01:23 0 % 11/04/18 01:23 0 % 11/04/18 01:23 0 % 11/04/18 01:23 0 % 11/04/18 01:23 Nucleated RBC % Not Reportable 11/04/18 01:23 Seg Neutrophils # 17.9 K/mm3 (1.8-7.7) H 11/03/18 05:19 Seg Neutrophils # Man 22.2 K/mm3 (1.8-7.7) H 11/04/18 01:23 Band Neutrophils # 0.0 K/mm3 11/04/18 01:23 1.7 K/mm3 (1.2-5.4) 11/04/18 01:23 Abs React Lymphs (Man) 0.0 K/mm3 11/04/18 01:23 1.0 K/mm3 (0.0-0.8) H 11/04/18 01:23 0.0 K/mm3 (0.0-0.4) 11/04/18 01:23 0.0 K/mm3 (0.0-0.1) 11/04/18 01:23 0.0 K/mm3 11/04/18 01:23 0.0 K/mm3 11/04/18 01:23 0.0 K/mm3 11/04/18 01:23 Blast Cells # 0.0 K/mm3 11/04/18 01:23 WBC Morphology Not Reportable 11/04/18 01:23 Hypersegmented Neuts Not Reportable 11/04/18 01:23 Hyposegmented Neuts Not Reportable 11/04/18 01:23 Hypogranular Neuts Not Reportable 11/04/18 01:23 Not Reportable 11/04/18 01:23 Not Reportable 11/04/18 01:23 Not Reportable 11/04/18 01:23 Not Reportable 11/04/18 01:23 Not Reportable 11/04/18 01:23 Not Reportable 11/04/18 01:23 Consistent w auto 11/04/18 01:23 Not Reportable 11/04/18 01:23 Plt Clumps, EDTA Not Reportable 11/04/18 01:23 1+ 11/04/18 01:23 Not Reportable 11/04/18 01:23 Not Reportable 11/04/18 01:23 Plt Morphology Comment Not Reportable 11/04/18 01:23 RBC Morphology Not Reportable 11/04/18 01:23 Dimorphic RBCs Not Reportable 11/04/18 01:23 Not Reportable 11/04/18 01:23 1+ 11/04/18 01:23 Not Reportable 11/04/18 01:23 1+ 11/04/18 01:23 Not Reportable 11/04/18 01:23 Not Reportable 11/04/18 01:23 Not Reportable 11/04/18 01:23 Not Reportable 11/04/18 01:23 Not Reportable 11/04/18 01:23 Not Reportable 11/04/18 01:23 1+ 11/04/18 01:23 1+ 11/04/18 01:23 Not Reportable 11/04/18 01:23 Not Reportable 11/04/18 01:23 Not Reportable 11/04/18 01:23 Not Reportable 11/04/18 01:23 Not Reportable 11/04/18 01:23 Not Reportable 11/04/18 01:23 Not Reportable 11/04/18 01:23 Acanthocytes (Spur) Not Reportable 11/04/18 01:23 Rouleaux Not Reportable 11/04/18 01:23 Not Reportable 11/04/18 01:23 Not Reportable 11/04/18 01:23 Not Reportable 11/04/18 01:23 ESR 85 mm/Hr (0-20) 11/03/18 05:19 Not Reportable 11/04/18 01:23 Hem Pathologist Commnt No 11/04/18 01:23 Sodium 144 mmol/L (137-145) 11/03/18 05:19 Potassium 4.2 mmol/L (3.6-5.0) 11/03/18 05:19 Chloride 111.2 mmol/L (98-107) H 11/03/18 05:19 Carbon Dioxide 24 mmol/L (22-30) 11/03/18 05:19 13 mmol/L 11/03/18 05:19 BUN 58 mg/dL (9-20) H 11/03/18 05:19 1.4 mg/dL (0.8-1.5) 11/03/18 05:19 Estimated GFR > 60 ml/min 11/03/18 05:19 41 % 11/03/18 05:19 Glucose 57 mg/dL (75-100) L 11/03/18 05:19 POC Glucose 81 (70-105) 11/04/18 08:57 4.7 % (4-6) 11/01/18 23:29 Lactic Acid 1.80 mmol/L (0.7-2.0) 11/02/18 05:45 Calcium 6.9 mg/dL (8.4-10.2) L 11/03/18 05:19 0.40 mg/dL (0.1-1.2) 11/02/18 02:49 AST 16 units/L (5-40) 11/02/18 02:49 ALT 7 units/L (7-56) 11/02/18 02:49 144 units/L (35-129) H 11/02/18 02:49 0.429 ng/mL (0.00-0.029) H* D 11/02/18 21:30 14.30 mg/dL (0.00-1.30) H 11/03/18 05:19 NT-Pro-B Natriuret Pep 2622 pg/mL (0-450) H 11/01/18 15:53 6.5 g/dL (6.3-8.2) 11/02/18 02:49 1.6 g/dL (3.9-5) L 11/02/18 02:49 0.3 % 11/02/18 02:49 Triglycerides 34 mg/dL (2-149) 11/01/18 15:53 Cholesterol 54 mg/dL (50-199) 11/01/18 15:53 23 mg/dL (50-130) L 11/01/18 15:53 25 mg/dL (40-59) L 11/01/18 15:53 2.16 % 11/01/18 15:53 Elena (Yellow) 11/02/18 18:10 Cloudy (Clear) 11/02/18 18:10 9.0 (5.0-7.0) H 11/02/18 18:10 Ur Specific [place] 1.014 (1.003-1.030) 11/02/18 18:10 100 mg/dl mg/dL (Negative) 11/02/18 18:10 Neg mg/dL (Negative) 11/02/18 18:10 Neg mg/dL (Negative) 11/02/18 18:10 Sm (Negative) 11/02/18 18:10 Neg (Negative) 11/02/18 18:10 Neg (Negative) 11/02/18 18:10 < 2.0 mg/dL (<2.0) 11/02/18 18:10 Ur Leukocyte Esterase Lg (Negative) 11/02/18 18:10 58.0 /HPF (0.0-6.0) H 11/02/18 18:10 40.0 /HPF (0.0-6.0) 11/02/18 18:10 U Epithel Cells (Auto) 2.0 /HPF (0-13.0) 11/02/18 18:10 Triple Phos Crystals 3+ 11/02/18 18:10 Few /HPF 11/02/18 18:10 Active Medications - Current Medications Current Medications: Generic Name Dose Route Start Last Admin Trade Name Freq PRN Reason Stop Dose Admin Acetaminophen 650 mg 11/01/18 22:40 Tylenol PO Q4H PRN Pain MILD(1-3)/Fever >100.5/NOWAK Lipase/Protease/Amylase 1 each 11/02/18 07:30 11/04/18 08:36 Creana m Rodriguez 12,000 Units PO Not Given AC [facility] Cholestyramine Resin 4 gm 11/02/18 10:00 11/03/18 21:52 Questran PO 4 gm BID YURI Administration Enoxaparin Sodium 40 mg 11/02/18 22:00 11/03/18 22:01 Lovenox SUB-Q 40 mg QDAY@2200 YURI Administration Hydromorphone HCl 0.5 mg 11/01/18 22:40 11/04/18 04:20 Dilaudid IV 0.5 mg Q3H PRN Administration Pain , Severe (7-10) Piperacillin Sod/Tazobactam Sod 4.5 gm in 100 mls @ 200 mls/hr 11/01/18 16:30 11/04/18 06:12 Zosyn/Ns 4.5gm/100ml IV 200 mls/hr Q8HR [facility] Administration Protocol Vancomycin HCl 1,250 mg/ 275 mls @ 166.667 mls/hr 11/02/18 08:00 11/03/18 20:29 Sodium Chloride IV Not Given Q12H YURI Dextrose/Sodium Chloride 1,000 mls @ 100 mls/hr 11/03/18 23:00 11/04/18 06:42 D5/0.45ns IV 100 mls/hr DIRECT YURI Infusion Insulin Human Lispro 0 unit 11/02/18 07:30 11/04/18 08:50 Humalog SUB-Q Not Given ACHS [facility] Protocol Metoclopramide HCl 10 mg 11/01/18 22:40 Reglan IV Q6H PRN Nausea And Vomiting Metoprolol Tartrate 50 mg 11/02/18 22:00 11/03/18 22:00 Lopressor PO 50 mg BID YURI Administration Ondansetron HCl 4 mg 11/01/18 22:40 Zofran IV Q8H PRN Nausea And Vomiting Oxycodone/Acetaminophen 1 tab 11/02/18 06:36 Percocet 5/325 PO Q6HR PRN Pain Pantoprazole Sodium 40 mg 11/02/18 10:00 11/02/18 09:20 Protonix PO 40 mg QDAY YURI Administration Pregabalin 75 mg 11/02/18 10:00 11/03/18 21:52 Lyrica PO 75 mg BID YURI Administration Sodium Chloride 10 ml 11/02/18 10:00 11/03/18 22:11 Sodium Chloride Flush Syringe 10 Ml IV 10 ml BID YURI Administration Sodium Chloride 10 ml 11/01/18 22:40 Sodium Chloride Flush Syringe 10 Ml IV PRN PRN LINE FLUSH Sodium Hypochlorite 1 applic 11/02/18 12:08 Dakin's Half Strength TP Q12H PRN Wound Care Spironolactone 25 mg 11/02/18 10:00 11/02/18 09:20 Aldactone PO 25 mg QDAY YURI Administration Torsemide 40 mg 11/02/18 07:00 11/04/18 06:12 Demadex PO 40 mg BID@0600,1800 YURI Administration Nutrition/Malnutrition Assess - Dietary Evaluation Nutrition/Malnutrition Findings: Nutrition Notes Start: 11/02/18 11:58 Freq: Status: Active Protocol: Document 11/02/18 11:58 LP (Rec: 11/02/18 12:05 LP [id number]) Nutrition Notes Need for Assessment generated from: MD Order Initial or Follow up Assessment Current Diagnosis Decubitus(Pressure Ulcer), Diabetes,Sepsis,Hypertension Other Pertinent Diagnosis multiple wounds Current Diet Cardiac/consistent CHO Labs/Tests BUN 62 BG 59 Pertinent Medications Reviewed Height 6 ft 4 in Weight 81.2 kg [place] Body Weight (kg) 91.81 BMI 21.7 Subjective/Other Information Consult for oral supplement, but pt states supplements make him have diarrhea. Pt would like double portions. Cristian makes him have diarrhea as well. Food preferences noted. Burn Absent Trauma Absent Body Fat Depletion Moderate depletion (severe) Muscle Mass Moderate Depletion (severe) #2 Nutrition Diagnosis Increased nutrient needs ( specify in comment below) Comments: Protein Etiology Wound healing As Evidenced by Signs and Symptoms Pt with multiple wounds and malnutrition #1 Nutrition Diagnosis Malnutrition Etiology chronic illness As Evidenced by Signs and Symptoms Pt with multiple wounds, muscle and fat depletion Is patient on ventilator? No Is Patient Ambulatory and/or Out of Bed No REE-([place] Jeor-confined to bed) [phone] Calculation Used for Recommendations [place] Additional Notes Protein needs are 97-122g (1.2 -1.5g/kg) Fluid needs are 1ml/kcal Nutrition Intervention Change Diet Order: Continue Add Supplement/Snack (indicate name/kcal Double portions /protein ) Goal #1 Meet at least 80% of kcal and protein needs Goal #2 Wound healing Goal #3 Wt gain/maintenance Anticipated Discharge Needs: Cardiac consistent CHO with extra protein Follow-Up By: 11/04/18 Additional Comments Follow for intakes
[2018-11-04] MEDS: VANCOMYCIN 1,250 MG in NACL 0.9% 250ML 250 ML IV SCH ×2 (11:01→21:09)
[2018-11-04] MEDS: LOPRESSOR PO SCH ×2 (11:16→21:09)
[2018-11-04] MEDS: ALDACTONE PO SCH ×2 (11:16→11:18)
[2018-11-04] MEDS: SODIUM CHLORIDE FLUSH SYRINGE 10 ML IV SCH ×2 (11:17→22:05)
[2018-11-04] MEDS ORDERED: SUBLIMAZE IV PRN ×2 (15:04→15:18)
[2018-11-04] MEDS ORDERED: ZOFRAN IV PRN ×2 (15:04→15:18)
--- NOTE | 2018-11-04 15:19 | Anesthesia Day of Surgery ---
Anesthesia Day of Surgery - Day of Surgery Patient Examined: Yes Patient H&P Reviewed: Yes Patient is NPO: Yes Beta Blockers: Yes
--- NOTE | 2018-11-04 15:25 | Anesthesia Consultation ---
Anesthesia Consult and Med Hx Date of service: 11/04/18 - Airway Anesthetic Teeth Evaluation: Good ROM Head & Neck: Adequate Mental/Hyoid Distance: Adequate Mallampati Class: Class II Intubation Access Assessment: Good - Pre-Operative Health Status ASA Pre-Surgery Classification: ASA4 Proposed Anesthetic Plan: General, MAC - Pulmonary Hx Pneumonia: Yes (Sepsis secondary to pneumonia) - Cardiovascular System Hx Hypertension: Yes Hx Heart Attack/AMI: Yes Hx Cardia Arrhythmia: Yes (A-Fib) - Central Nervous System Hx Psychiatric Problems: Yes - Endocrine Hx Non-Insulin Dependent Diabetes: Yes (FBS 71) - Hematic Hx Anemia: Yes (Pt reports h/o anemia requiring blood transfusion) - Additional Comments Anesthesia Medical History Comments: NSTEMI type II Pt with elevated troponin but denies any occurrence of cardiac symptoms. ECG with no acute ischemic perez ges. Echo revealed EF 50-55%, LA mildly dilated, small pericardial effusion, left pleural effusion. Stress test was found to be negative. Afib. Currently NSR. Cardiology Will not initiate systemic AC at this time in setting of anemia and impending surgery. Likely resume AC postoperatively. Severe protein calorie malnutrition; Albumin 1.6. Echo reviewed - EF 50-55%, LA mildly dilated, small pericardial effusion, left pleural effusion. S/p lexiscan MPI stress 11/03/2018 which was negative. Atrial fibrillation --> SR. Pt reports h/o atrial fibrillation requiring cardioversion at [facility] 2 years ago (he reports he has maintained NSR since that time). Pt also states he was taking Eliquis until "recently" when this medication was "discontinued by someone". Pt currently in NSR. Bout of AFib RVR noted in ED was likely precipitated by sepsis. Will not initiate systemic AC at this time in setting of anemia and. impending surgery. Currently stable cardiac status. Pt is at moderate cardiovascular risk for contemplated surgical debridement. There are no immediate cardiac contraindications to proceeding with surgery at this time.
[2018-11-04] MEDS ORDERED: SUBLIMAZE ONE ×2 (15:37→16:12)
[2018-11-04] MEDS ORDERED: VERSED ONE (15:37)
[2018-11-04] MEDS ORDERED: D50W (25GM) Syringe IV ONE ×2 (15:43→15:52)
[2018-11-04] MEDS ORDERED: XYLOCAINE 1% 20 mL ONE (15:48)
[2018-11-04] MEDS ORDERED: MARCAINE 0.5% INFILTRATI ONE ×2 (15:48→16:15)
[2018-11-04] MEDS ORDERED: NACL 0.9% 1000 ML 1,000 ML IV SCH (16:00)
[2018-11-04] MEDS ORDERED: DIPRIVAN 10 MG/ML IV ONE (16:13)
[2018-11-04] MEDS ORDERED: NACL 0.9% IR ONE (16:15)
[2018-11-04] MEDS ORDERED: XYLOCAINE 1% 20 mL INFILTRATI ONE (16:15)
[2018-11-04] MEDS ORDERED: ROMAZICON IV ONE (16:47)
--- NOTE | 2018-11-04 16:47 | Post Operative Note ---
Pre-op diagnosis: infected sacral wound, bilateral gluteal wounds Post-op diagnosis: same Findings: 1. sacral wound - stage 3. Depth to sacral fascia with fascia appearing healthy. preop: 4.5cm x 4.5cm x 1.4cm post op: 5.5cm x 4.5cm x 3cm 2. R gluteal wound - stage 3. depth to muscle preop: 3cm X 1.5cm X 1.3cm post op: 3cm X 1.5cm X 2cm Procedure: excisional debridement of sacral and right gluteal wound Anesthesia: MAC, local Surgeon: BC CALVILLO Estimated blood loss: minimal Pathology: list (tissue cultures) Specimen disposition: to lab Condition: stable Disposition: PACU
--- NOTE | 2018-11-04 20:37 | Operative Report ---
PREOPERATIVE DIAGNOSES: Infected sacral wound. Bilateral gluteal wounds. POSTOPERATIVE DIAGNOSES: Infected sacral wound. Bilateral gluteal wounds. FINDINGS: 1. Sacral wounds, stage 3 depth to the sacral fascia with sacral fascia appearing healthy. Preoperative measurement 4.5 cm x 4.5 cm x 1.4 cm. Postoperative measurement 5.5 cm x 4.5 cm x 3 cm. 2. Right gluteal wounds, stage 3, depth to muscle. Preoperative measurement 3 cm x 1.5 cm x 1.3 cm. Postoperative measurement 3 cm x 1.5 cm x 2 cm. PROCEDURE: Excisional debridement of sacral and right gluteal wound. ANESTHESIA: MAC, local. SURGEON: Moni Russo DO. PATHOLOGY: Tissue culture. SPECIMEN DISPOSITION: To lab. CONDITION AND DISPOSITION: The patient is stable to PACU. HISTORY OF PRESENT ILLNESS AND INDICATION: The patient is a 48-year-old male who is bedbound, status post bilateral BKA at an outside facility. The patient has been living in a nursing facility for the past several months in order to rehabilitation; however, because he has been largely bedbound, has developed wounds on his sacral areas as well as bilateral gluteal and left ischial areas. The patient presented to the hospital with hypotension and tachycardia, was felt to be septic from these wounds. Therefore, recommendation was to debride them. The patient did have pain sensation in that area and so this was decided to be done in the operating room. Upon admission, the patient had elevated troponins, which were trended out and remained elevated and Cardiology was consulted. A stress test was performed and was negative and the patient was deemed at a moderate cardiac risk and released for surgery. All risks, benefits, and alternatives of surgery were discussed with the patient. Consent obtained. PROCEDURE IN DETAIL: The patient was identified in the preoperative area, taken back to the operating room and kept in his hospital bed and turned in the left lateral decubitus position. The bilateral gluteal areas and sacral areas were prepped with Betadine and draped in the usual sterile fashion. Timeout was performed. First, I turned my attention to the sacral wound. Local anesthetic was infiltrated into the skin and subcutaneous tissue. Using a #10 blade, the necrotic skin was excised. I then performed debridement of the subcutaneous tissue and muscle. This was done using a combination of electrocautery, forceps and scissors. Once all the necrotic tissue was debrided, the wound was irrigated with saline solution and hemostasis was achieved. The wound was packed with two 4 cm x 4 gauze moistened with saline and covered with a 4 x 4 gauze, ABD pad, and Medipore tape. We then turned our attention to the right gluteal wound, which is a stage 3 with depth to the muscle. This wound did have a large amount of a thick, adherent slough at the base. The slough was excised using forceps and scissors. Once the slough was excised, the wound base was clean and healthy with red tissue. Hemostasis was then achieved with electrocautery and the wound was irrigated with saline. The wound was then packed with 1 piece of saline moistened gauze, covered with 4 x 4 gauze, an ABD pad and Medipore tape. The patient's left ischial and left gluteal wounds were both clean and did not appear infected. These were not debrided. Please look to the above findings for the wound measurements. At the end of the case, all sponge, instrument, sharp counts were correct x 2. The patient was awoken from anesthesia and taken to PACU in stable condition. JOB# [id number] ALYSSA/ELZBIETA
[2018-11-04] MEDS: LOVENOX SUB-Q SCH (21:05)
[2018-11-05] MEDS: ZOSYN/NS 4.5GM/100ML 4.5 GM/100 ML VIAL IV SCH ×3 (06:11→21:20)
[2018-11-05] MEDS: DEMADEX PO SCH ×3 (06:12→17:46)
[2018-11-05] MEDS: HumaLOG SUB-Q SCH ×4 (07:25→21:23)
[2018-11-05] MEDS: DILAUDID IV PRN ×4 (08:05→21:24)
[2018-11-05] MEDS: CREON DR 12,000 UNITS PO SCH ×3 (08:08→17:47)
[2018-11-05] MEDS: PROTONIX PO SCH (09:41)
[2018-11-05] MEDS: ALDACTONE PO SCH (09:41)
[2018-11-05] MEDS: LYRICA PO SCH ×2 (09:41→21:24)
[2018-11-05] MEDS: QUESTRAN PO SCH ×2 (09:42→21:21)
[2018-11-05] MEDS: LOPRESSOR PO SCH ×2 (09:42→21:22)
--- NOTE | 2018-11-05 10:00 | Progress Note ---
Assessment and Plan Patient is s/p sacral wound debridement. He is currently stable from a cardiac standpoint. The patient has been seen in conjunction with Dr. Hayes, who agrees with the assessment and plan. Sepsis / lactic acidosis / pneumonia IVF and IV abx per primary/ID. ID team following. One blood culture is preliminarily positive for coag negative staphylococcus. Sacral decubitus wound Per ID team, high concern for osteomyelitis, wound likely down to the bone. Will need 6 weeks of IV antibiotics. Recommend MRI of the sacrum. S/P wound debridement. Surgery managing. NSTEMI type II Pt denies any occurrence of cardiac symptoms. ECG with no acute ischemic changes. Echo reviewed - EF 50-55%, LA mildly dilated, small pericardial effusion, left pleural effusion. S/p lexiscan MPI stress 11/03/2018 - negative. Atrial fibrillation --> SR Pt reports h/o atrial fibrillation requiring cardioversion at [facility] 2 years ago (he reports he has maintained NSR since that time). Pt also states he was taking Eliquis until "recently" when this medication was "discontinued by someone". Cont lopressor. Pt currently in NSR. Bout of AFib RVR noted in ED was likely precipitated by sepsis. Will not initiate systemic AC at this time in setting of anemia and impending surgery. If he is noted to have paroxysms of AFib on telemetry, can consider heparin gtt until surgery and then resume Eliquis post- operatively. Cont observation on telemetry. Anemia Pt reports h/o anemia requiring blood transfusion. Monitor CBC. Consider GI consultation per primary. HTN Stable. Cont lopressor. DM Hgb A1c 4.7. H/o gangrene, s/p BLE BKA Malnutrition Albumin 1.6. Subjective Date of service: 11/05/18 Principal diagnosis: sepsis Interval history: Patient lying in bed in NAD. He is s/p sacral wound debridement. No complaints. Some HRs in 50s noted, but pt asymptomatic. HR now 62 per bedside check. Objective Last Vital Signs Temp 97.5 F L 11/05/18 05:15 Pulse 64 11/05/18 09:42 Resp 12 11/05/18 05:15 BP 118/55 11/05/18 09:42 Pulse Ox 100 11/05/18 05:15 - Physical Examination General: No Apparent Distress HEENT: Positive: PERRL, Normocephaly, Mucus Membranes Moist Neck: Positive: neck supple, trachea midline Cardiac: Positive: Reg Rate and Rhythm, Regular Rhythm Lungs: Positive: Normal Breath Sounds, Oxygen (2L) Neuro: Positive: Grossly Intact, Other (deferred) Abdomen: Positive: Unremarkable. Negative: Tender /Rectal: Other (deferred) Skin: Positive: Other (sacral ulcer ) Musculoskeletal: other (s/p bilateral BKA) Extremities: Present: upper extr. pulses (WNL), Other (s/p b/l BKA. ) - Imaging and Cardiology EKG: report reviewed, image reviewed Echo: pending
--- NOTE | 2018-11-05 10:15 | Progress Note ---
Assessment and Plan Cultures: 11/01/18 Blood: CoNS, 1 out of 4 bottles 11/02/18 Penis Foreskin: Proteus, susceptible to pip/tazo 11/04/18 Blood: NGTD 11/04/18 Surgical Buttock: Gram negative tiff A/P: 48 yo M with PMHx of bilateral BKA, HTN, afib, DM2, sleep apnea admitted with sacral decubitus ulcer, pneumonia and penile discharge. 1. Sepsis secondary to pneumonia - seen on CXR, would continue antibiotics with pip/tazo and vanco for now given myriad of infectious processes. Not short of breath currently. CRP 14.3. Blood CX CoNS 2. CoNS Bacteremia: blood cultures 1 out of 4 bottles. likely a contaminant. F ollow-up repeat blood cultures to ensure clearance. 3. Sacral decubitus ulcer - high concern for osteomyelitis, wound likely down to the bone. Will need 6 weeks of IV antibiotics. S/p excisional debridement of sacral and right gluteal wound 11/04/18. Deep wound cultures GNR. Will follow-up on ID and susceptibility. follow-up MRI of the sacrum. 4. Penile discharge - swabbed with ORDER ENTRY, doesn't entirely appear to be discharge. Appears to be lesion on penis. Cultures grew Proteus, susceptible to pip/tazo 5. Hx of BKA 6. HTn 7. Afib 8. DM2 Recs: continue vancomycin Pk dosing, D4 Continue pip-tazo 4.5 gm every 8 hours, D5 Continue to monitor renal function on vanco/pip-tazo with daily serum creatinine Follow up MRI of sacrum follow-up deep wound/bone cultures for ID and susceptibility vanc trough after 4th dose Would strongly consider urology consult. follow-up urine gonorrhea and chlamydia (low risk; ordered) follow-up repeat blood cultures Dr. Graves will round on Thursday. Dr. oMran is taking call this weekend , please call for questions [facility] M: [phone] O:[phone] Subjective Date of service: 11/05/18 Principal diagnosis: sepsis Interval history: Patient seen and examined. Laying in bed, reports no acute distress or generalized weakness. Mostly uncooperative. no fevers. Objective - Exam Narrative Exam: Constitutional: Alert. Awake. No acute distress. Uncooperative. Head, Ears, Nose: Normocephalic, atraumatic. External ears, nose normal Eyes: Conjunctivae/corneas clear. No icterus. No ptosis. Neck: Supple, no meningeal signs Oral: fair dentition, moist mucous membranes Cardiovascular: S1, S2 normal. Normal rhythm Respiratory: Good air entry, clear to auscultation bilaterally GI: Soft, non-tender; bowel sounds normal. No peritoneal signs : yellowish discharge/lesion on inferior aspect of penis, below the meatus. Unable to be easily wipe away Musculoskeletal: 3x wounds, deep. No obvious purulence. Bilateral BKA. Skin: No rash or abscess Hem/Lymphatic: No palpable cervical or supraclavicular nodes. No lymphangitis Psych: uncooperative. Flat affect Neurological: Moves all extremities, no focal defects - Constitutional Vitals: Vital Signs Temp Pulse Resp BP Pulse Ox 97.5 F L 64 12 118/55 100 11/05/18 05:15 11/05/18 09:42 11/05/18 05:15 11/05/18 09:42 11/05/18 05:15 Temperature -Last 24 Hours Temperature 97.5 F Temperature 97.7 F Temperature 96.9 F Temperature 97.3 F Temperature 98.0 F - Labs CBC & Chem 7: 11/05/18 11:22 11/03/18 05:19 Labs: Abnormal lab results 11/04/18 11/05/18 Range/Units 16:56 07:27 POC Glucose 181 H 65 L (70-105)
[2018-11-05] MEDS: D5/0.45NS 1,000 ML IV SCH (10:43)
[2018-11-05] MEDS: VANCOMYCIN 1,250 MG in NACL 0.9% 250ML 250 ML IV SCH ×2 (10:46→20:00)
[2018-11-05 12:07] LABS: Hemoglobin 6.8 gm/dl (11.8-15.2); Mean Corpuscular HGB Conc 33 % (32-34); Mean Corpuscular Volume 75 fl (84-94); Platelet Count 186 K/mm3 (140-440); Red Cell Distribution Width 19.9 % (13.2-15.2)
[2018-11-05] MEDS: PERCOCET 5/325 PO PRN (12:28)
[2018-11-05 12:58] LABS: Basophils % (Manual) 0 % (0.0-1.8); Eosinophils % (Manual) 0 % (0.0-4.3); Total Cells Counted 100
[2018-11-05 13:00] LABS: Anisocytosis 1+; Hypochromasia 1+; Ovalocytes Few; Poikilocytosis 1+; Tear Drop Cells Few
[2018-11-05 13:01] LABS: Platelet Estimate Consistent w Auto; Schistocytes Rare
--- NOTE | 2018-11-05 13:23 | Progress Note ---
Assessment and Plan 48 yo M s/p excisional debridement of sacral and right gluteal wound POD 1 1. sacral decubitus ulcer 2. bilateral gluteal pressure ulcers 3. severe malnutrition - albumin 1.7 4. sepsis 5. elevated troponin Plan: 1. 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 2. IV abx per ID 3. offloading 4. follow up OR cultures 5. optimize nutrition -protein supplements 6. MRI sacrum to r/o osteo pending Patient very unmotivated and has been sleeping at every interaction. I explained to him that he will need to work with physical therapy to get strong enough to turn himself and stay off of the wounds. Otherwise, wounds will get worse. I also explained that he will need to take in protein supplements multiple times per day to help with his nutrition as this is important to heal wounds. Patient will need wound vac when he returns to facility and follow up in wound care center. No further debridement planned this admission. D/W case management. Thank you, please call with questions. Subjective Date of service: 11/05/18 Narrative: Pt seen and examined. States he is tired and wants to go home. No f/c Objective Vital Signs - 12hr 11/05/18 11/05/18 11/05/18 02:00 05:15 09:36 Temperature 97.5 F L Pulse Rate 57 L Respiratory 12 Rate Respiratory 20 Rate [Sacrum] Blood Pressure 143/83 118/55 O2 Sat by Pulse 100 Oximetry 11/05/18 11/05/18 11/05/18 09:41 09:42 11:57 Temperature 98.0 F Pulse Rate 64 64 61 Respiratory 18 Rate Respiratory Rate [Sacrum] Blood Pressure 118/55 118/55 99/61 O2 Sat by Pulse 98 Oximetry - General physical appearance Narrative Exam: Gen; sleeping but arousable. NAD CV: S1, S2 + Resp: even and unlabored Ext; b/l bka sacrum: dressings c/d/i - Labs 11/05/18 11:22 11/03/18 05:19
--- NOTE | 2018-11-05 13:52 | Progress Note ---
Assessment and Plan Assessment and plan: Sepsis secondary to pneumonia - seen on CXR, would continue antibiotics with pip/tazo and vanco for now given myriad of infectious processes. Not short of breath currently. Sacral decubitus ulcer - high concern for osteomyelitis, wound likely down to the bone. Will need 6 weeks of IV antibiotics. MRI of pelvis ordered.. Surgery to obtain deep wound or bone cultures during debridement. CoNS Bacteremia: blood cultures 1 out of 4 bottles. likely a contaminant. Will order repeat blood cultures. NSTEMI 2. Etiology probably secondary to #1. Pt with elevated troponin but denies any occurrence of cardiac symptoms. ECG with no acute ischemic changes. Echo revealed EF 50-55%, LA mildly dilated, small pericardial effusion, left pleural effusion. Stress test was found to be negative. Penile discharge - swabbed with SERVICES ADVISOR, doesn't entirely appear to be discharge. Appears to be lesion on penis. Hx of BKA Hypertension. Continue antihypertensive medications. Afib. Currently NSR. Cardiology Will not initiate systemic AC at this time in setting of anemia and impending surgery. Likely resume AC postoperatively. DM2. Continue Accu-Cheks and sliding scale insulin. Severe protein calorie malnutrition. History Interval history: New issues overnight. Hospitalist Physical - Constitutional Vitals: Temp Pulse Resp BP Pulse Ox 98.0 F 61 18 99/61 98 11/05/18 11:57 11/05/18 11:57 11/05/18 11:57 11/05/18 11:57 11/05/18 11:57 General appearance: Present: no acute distress - EENT Eyes: Present: PERRL, EOM intact ENT: hearing intact, clear oral mucosa, dentition normal - Neck Neck: Present: supple, normal ROM - Respiratory Respiratory effort: normal Respiratory: bilateral: CTA - Cardiovascular Rhythm: regular Heart Sounds: Present: S1 & S2. Absent: gallop, rub - Extremities Extremities: no ischemia, No edema, Full ROM - Abdominal General gastrointestinal: soft, non-tender, non-distended, normal bowel sounds - Integumentary Integumentary: Present: clear, warm, dry - Neurologic Neurologic: CNII-XII intact, moves all extremities Results - Labs CBC & Chem 7: 11/05/18 11:22 11/03/18 05:19 Labs: Laboratory Last Values WBC 24.9 K/mm3 (4.5-11.0) H 11/05/18 11:22 RBC 2.80 M/mm3 (3.65-5.03) L 11/05/18 11:22 Hgb 6.8 gm/dl (11.8-15.2) L 11/05/18 11:22 Hct 21.0 % (35.5-45.6) L 11/05/18 11:22 MCV 75 fl (84-94) L 11/05/18 11:22 MCH 24 pg (28-32) L 11/05/18 11:22 MCHC 33 % (32-34) 11/05/18 11:22 RDW 19.9 % (13.2-15.2) H 11/05/18 11:22 Plt Count 186 K/mm3 (140-440) 11/05/18 11:22 Lymph % (Auto) 5.8 % (13.4-35.0) L 11/03/18 05:19 [place] % (Auto) 4.5 % (0.0-7.3) 11/03/18 05:19 Eos % (Auto) 0.1 % (0.0-4.3) 11/03/18 05:19 Baso % (Auto) 0.1 % (0.0-1.8) 11/03/18 05:19 Lymph # 1.2 K/mm3 (1.2-5.4) 11/03/18 05:19 [place] # 0.9 K/mm3 (0.0-0.8) H 11/03/18 05:19 Eos # 0.0 K/mm3 (0.0-0.4) 11/03/18 05:19 Baso # 0.0 K/mm3 (0.0-0.1) 11/03/18 05:19 Add Manual Diff Complete 11/05/18 11:22 Total Counted 100 11/05/18 11:22 Seg Neutrophils % Admission Nurse Coordinator 11/05/18 11:22 Seg Neuts % (Manual) 96.0 % (40.0-70.0) H 11/05/18 11:22 0 % 11/05/18 11:22 3.0 % (13.4-35.0) L 11/05/18 11:22 Reactive Lymphs % (Man) 0 % 11/05/18 11:22 1.0 % (0.0-7.3) 11/05/18 11:22 0 % (0.0-4.3) 11/05/18 11:22 0 % (0.0-1.8) 11/05/18 11:22 0 % 11/05/18 11:22 0 % 11/05/18 11:22 0 % 11/05/18 11:22 0 % 11/05/18 11:22 Nucleated RBC % Not Reportable 11/05/18 11:22 Seg Neutrophils # 17.9 K/mm3 (1.8-7.7) H 11/03/18 05:19 Seg Neutrophils # Man 23.9 K/mm3 (1.8-7.7) H 11/05/18 11:22 Band Neutrophils # 0.0 K/mm3 11/05/18 11:22 0.7 K/mm3 (1.2-5.4) L 11/05/18 11:22 Abs React Lymphs (Man) 0.0 K/mm3 11/05/18 11:22 0.2 K/mm3 (0.0-0.8) 11/05/18 11:22 0.0 K/mm3 (0.0-0.4) 11/05/18 11:22 0.0 K/mm3 (0.0-0.1) 11/05/18 11:22 0.0 K/mm3 11/05/18 11:22 0.0 K/mm3 11/05/18 11:22 0.0 K/mm3 11/05/18 11:22 Blast Cells # 0.0 K/mm3 11/05/18 11:22 WBC Morphology Not Reportable 11/05/18 11:22 Hypersegmented Neuts Not Reportable 11/05/18 11:22 Hyposegmented Neuts Not Reportable 11/05/18 11:22 Hypogranular Neuts Not Reportable 11/05/18 11:22 Not Reportable 11/05/18 11:22 Not Reportable 11/05/18 11:22 Not Reportable 11/05/18 11:22 Not Reportable 11/05/18 11:22 Not Reportable 11/05/18 11:22 Not Reportable 11/05/18 11:22 Consistent w auto 11/05/18 11:22 Not Reportable 11/05/18 11:22 Plt Clumps, EDTA Not Reportable 11/05/18 11:22 Not Reportable 11/05/18 11:22 Not Reportable 11/05/18 11:22 Not Reportable 11/05/18 11:22 Plt Morphology Comment Not Reportable 11/05/18 11:22 RBC Morphology Not Reportable 11/05/18 11:22 Dimorphic RBCs Not Reportable 11/05/18 11:22 Not Reportable 11/05/18 11:22 1+ 11/05/18 11:22 1+ 11/05/18 11:22 1+ 11/05/18 11:22 Not Reportable 11/05/18 11:22 Not Reportable 11/05/18 11:22 Not Reportable 11/05/18 11:22 Not Reportable 11/05/18 11:22 Not Reportable 11/05/18 11:22 Not Reportable 11/05/18 11:22 Few 11/05/18 11:22 Few 11/05/18 11:22 Not Reportable 11/05/18 11:22 Not Reportable 11/05/18 11:22 Not Reportable 11/05/18 11:22 Not Reportable 11/05/18 11:22 Not Reportable 11/05/18 11:22 Not Reportable 11/05/18 11:22 Not Reportable 11/05/18 11:22 Acanthocytes (Spur) Not Reportable 11/05/18 11:22 Rouleaux Not Reportable 11/05/18 11:22 Not Reportable 11/05/18 11:22 Rare 11/05/18 11:22 Not Reportable 11/05/18 11:22 ESR 85 mm/Hr (0-20) 11/03/18 05:19 Not Reportable 11/05/18 11:22 Hem Pathologist Commnt No 11/05/18 11:22 Sodium 144 mmol/L (137-145) 11/03/18 05:19 Potassium 4.2 mmol/L (3.6-5.0) 11/03/18 05:19 Chloride 111.2 mmol/L (98-107) H 11/03/18 05:19 Carbon Dioxide 24 mmol/L (22-30) 11/03/18 05:19 13 mmol/L 11/03/18 05:19 BUN 58 mg/dL (9-20) H 11/03/18 05:19 1.4 mg/dL (0.8-1.5) 11/03/18 05:19 Estimated GFR > 60 ml/min 11/03/18 05:19 41 % 11/03/18 05:19 Glucose 57 mg/dL (75-100) L 11/03/18 05:19 POC Glucose 82 (70-105) 11/05/18 11:19 4.7 % (4-6) 11/01/18 23:29 Lactic Acid 1.80 mmol/L (0.7-2.0) 11/02/18 05:45 Calcium 6.9 mg/dL (8.4-10.2) L 11/03/18 05:19 0.40 mg/dL (0.1-1.2) 11/02/18 02:49 AST 16 units/L (5-40) 11/02/18 02:49 ALT 7 units/L (7-56) 11/02/18 02:49 144 units/L (35-129) H 11/02/18 02:49 0.429 ng/mL (0.00-0.029) H* D 11/02/18 21:30 14.30 mg/dL (0.00-1.30) H 11/03/18 05:19 NT-Pro-B Natriuret Pep 2622 pg/mL (0-450) H 11/01/18 15:53 6.5 g/dL (6.3-8.2) 11/02/18 02:49 1.6 g/dL (3.9-5) L 11/02/18 02:49 0.3 % 11/02/18 02:49 Triglycerides 34 mg/dL (2-149) 11/01/18 15:53 Cholesterol 54 mg/dL (50-199) 11/01/18 15:53 23 mg/dL (50-130) L 11/01/18 15:53 25 mg/dL (40-59) L 11/01/18 15:53 2.16 % 11/01/18 15:53 Elena (Yellow) 11/02/18 18:10 Cloudy (Clear) 11/02/18 18:10 9.0 (5.0-7.0) H 11/02/18 18:10 Ur Specific [place] 1.014 (1.003-1.030) 11/02/18 18:10 100 mg/dl mg/dL (Negative) 11/02/18 18:10 Neg mg/dL (Negative) 11/02/18 18:10 Neg mg/dL (Negative) 11/02/18 18:10 Sm (Negative) 11/02/18 18:10 Neg (Negative) 11/02/18 18:10 Neg (Negative) 11/02/18 18:10 < 2.0 mg/dL (<2.0) 11/02/18 18:10 Ur Leukocyte Esterase Lg (Negative) 11/02/18 18:10 58.0 /HPF (0.0-6.0) H 11/02/18 18:10 40.0 /HPF (0.0-6.0) 11/02/18 18:10 U Epithel Cells (Auto) 2.0 /HPF (0-13.0) 11/02/18 18:10 Triple Phos Crystals 3+ 11/02/18 18:10 Few /HPF 11/02/18 18:10 Active Medications - Current Medications Current Medications: Generic Name Dose Route Start Last Admin Trade Name Freq PRN Reason Stop Dose Admin Acetaminophen 650 mg 11/01/18 22:40 Tylenol PO Q4H PRN Pain MILD(1-3)/Fever >100.5/NOWAK Lipase/Protease/Amylase 1 each 11/02/18 07:30 11/05/18 12:[address] 12,000 Units PO 1 each AC YURI Administration Cholestyramine Resin 4 gm 11/02/18 10:00 11/05/18 09:42 Questran PO 4 gm BID YURI Administration Enoxaparin Sodium 40 mg 11/02/18 22:00 11/04/18 21:05 Lovenox SUB-Q 40 mg QDAY@2200 YURI Administration Hydromorphone HCl 0.5 mg 11/01/18 22:40 11/05/18 08:05 Dilaudid IV 0.5 mg Q3H PRN Administration Pain , Severe (7-10) Piperacillin Sod/Tazobactam Sod 4.5 gm in 100 mls @ 200 mls/hr 11/01/18 16:30 11/05/18 06:11 Zosyn/Ns 4.5gm/100ml IV 200 mls/hr Q8HR YURI Administration Protocol Vancomycin HCl 1,250 mg/ 275 mls @ 166.667 mls/hr 11/02/18 08:00 11/05/18 10:46 Sodium Chloride IV 166.667 mls/hr Q12H YURI Administration Dextrose/Sodium Chloride 1,000 mls @ 100 mls/hr 11/03/18 23:00 11/05/18 10:43 D5/0.45ns IV 100 mls/hr DIRECT YURI Administration Sodium Chloride 1,000 mls @ 42 mls/hr 11/04/18 16:00 Nacl 0.9% 1000 Ml IV DIRECT YURI Insulin Human Lispro 0 unit 11/02/18 07:30 11/05/18 12:33 Humalog SUB-Q Not Given ACHS [facility] Protocol Metoclopramide HCl 10 mg 11/01/18 22:40 Reglan IV Q6H PRN Nausea And Vomiting Metoprolol Tartrate 50 mg 11/02/18 22:00 11/05/18 09:42 Lopressor PO 50 mg BID YURI Administration Ondansetron HCl 4 mg 11/01/18 22:40 Zofran IV Q8H PRN Nausea And Vomiting Oxycodone/Acetaminophen 1 tab 11/02/18 06:36 11/05/18 12:28 Percocet 5/325 PO 1 tab Q6HR PRN Administration Pain Pantoprazole Sodium 40 mg 11/02/18 10:00 11/05/18 09:41 Protonix PO 40 mg QDAY YURI Administration Pregabalin 75 mg 11/02/18 10:00 11/05/18 09:41 Lyrica PO 75 mg BID YURI Administration Sodium Chloride 10 ml 11/02/18 10:00 11/04/18 22:05 Sodium Chloride Flush Syringe 10 Ml IV 10 ml BID YURI Administration Sodium Chloride 10 ml 11/01/18 22:40 11/04/18 21:12 Sodium Chloride Flush Syringe 10 Ml IV 10 ml PRN PRN Administration LINE FLUSH Sodium Hypochlorite 1 applic 11/02/18 12:08 Dakin's Half Strength TP Q12H PRN Wound Care Spironolactone 25 mg 11/02/18 10:00 11/05/18 09:41 Aldactone PO 25 mg QDAY YURI Administration Torsemide 40 mg 11/02/18 07:00 11/05/18 06:12 Demadex PO 40 mg BID@0600,1800 YURI Administration Nutrition/Malnutrition Assess - Dietary Evaluation Nutrition/Malnutrition Findings: Nutrition Notes Start: 11/02/18 11:58 Freq: Status: Active Protocol: Document 11/04/18 15:05 RM (Rec: 11/04/18 15:10 RM [id number]) Nutrition Notes Initial or Follow up Reassessment Current Diagnosis Decubitus(Pressure Ulcer), Diabetes,Sepsis,Hypertension Other Pertinent Diagnosis multiple wounds, Hx BKA Current Diet NPO Labs/Tests Reviewed Pertinent Medications Reviewed Height 6 ft 4 in Weight 82.8 kg [facility] Body Weight (kg) 91.81 BMI 22.2 Subjective/Other Information Pt stated that prior to NPO his appetite was good and that he ate most of his meals. Noted temporal wasting. Percent of energy/protein needs met: 100%/100% (prior to NPO) Burn Absent Trauma Absent #2 Nutrition Diagnosis Increased nutrient needs ( specify in comment below) Diagnosis Progress(for reassessment Continues documentation) #1 Nutrition Diagnosis Malnutrition Diagnosis Progress(for reassessment Continues documentation) Is patient on ventilator? No Is Patient Ambulatory and/or Out of Bed No REE-([facility]-confined to bed) [phone] Calculation Used for Recommendations [facility] Additional Notes Protein needs are 97-122g (1.2 -1.5g/kg) Fluid needs are 1ml/kcal Nutrition Intervention Change Diet Order: Advance diet when medically able Add Supplement/Snack (indicate name/kcal Continue double portions once /protein ) diet advanced Goal #1 Diet advancement Goal #2 Wound healing Goal #3 Wt gain/maintenance Anticipated Discharge Needs: Cardiac consistent CHO with extra protein Follow-Up By: 11/12/18 Additional Comments Follow for PO and ONS intakes
[2018-11-05] MEDS: SODIUM CHLORIDE FLUSH SYRINGE 10 ML IV SCH ×2 (20:01→21:23)
[2018-11-05] MEDS: DAKIN'S HALF STRENGTH TP SCH ×2 (20:02→21:29)
[2018-11-05] MEDS: LOVENOX SUB-Q SCH (21:21)
[2018-11-05] MEDS ORDERED: APRESOLINE IV PRN (23:22)
[2018-11-06] MEDS: D5/0.45NS 1,000 ML IV SCH ×2 (03:48→18:12)
[2018-11-06] MEDS: ZOSYN/NS 4.5GM/100ML 4.5 GM/100 ML VIAL IV SCH ×3 (06:26→22:15)
[2018-11-06] MEDS: DILAUDID IV PRN ×3 (06:28→15:45)
[2018-11-06] MEDS: DEMADEX PO SCH ×2 (06:29→18:13)
[2018-11-06] MEDS: HumaLOG SUB-Q SCH ×4 (08:54→22:11)
[2018-11-06] MEDS: CREON DR 12,000 UNITS PO SCH ×3 (08:56→18:14)
[2018-11-06] MEDS: VANCOMYCIN 1,250 MG in NACL 0.9% 250ML 250 ML IV SCH (08:57)
--- NOTE | 2018-11-06 09:20 | Progress Note ---
Assessment and Plan Assessment and plan: Sepsis secondary to pneumonia - seen on CXR, would continue antibiotics with pip/tazo and vanco for now given myriad of infectious processes. Not short of breath currently. Sacral decubitus ulcer - high concern for osteomyelitis, wound likely down to the bone. Will likely need 6 weeks of IV antibiotics empirically. MRI of pelvis ordered but patient unable to complete due to intolerance/pain. Will discuss with ID plans for antibiotics. Follow-up deep wound or bone cultures during debridement. CoNS Bacteremia: blood cultures 1 out of 4 bottles. likely a contaminant. Will order repeat blood cultures. NSTEMI 2. Etiology probably secondary to #1. Pt with elevated troponin but denies any occurrence of cardiac symptoms. ECG with no acute ischemic changes. Echo revealed EF 50-55%, LA mildly dilated, small pericardial effusion, left pleural effusion. Stress test was found to be negative. Penile discharge - swabbed with [employer] WORK[employer], doesn't entirely appear to be discharge. Appears to be lesion on penis. Hx of BKA Hypertension. Continue antihypertensive medications. Afib. Currently NSR. Cardiology Will not initiate systemic AC at this time in setting of anemia and impending surgery. Likely resume AC postoperatively. DM2. Continue Accu-Cheks and sliding scale insulin. Severe protein calorie malnutrition. History Interval history: New issues overnight. Hospitalist Physical - Constitutional Vitals: Temp Pulse Resp BP Pulse Ox 97.7 F 56 L 17 161/91 100 11/06/18 05:28 11/06/18 06:26 11/06/18 06:58 11/06/18 06:26 11/06/18 05:28 General appearance: Present: no acute distress - EENT Eyes: Present: PERRL, EOM intact ENT: hearing intact, clear oral mucosa, dentition normal - Neck Neck: Present: supple, normal ROM - Respiratory Respiratory effort: normal Respiratory: bilateral: CTA - Cardiovascular Rhythm: regular Heart Sounds: Present: S1 & S2. Absent: gallop, rub - Extremities Extremities: no ischemia, No edema, Full ROM - Abdominal General gastrointestinal: soft, non-tender, non-distended, normal bowel sounds - Integumentary Integumentary: Present: clear, warm, dry - Neurologic Neurologic: CNII-XII intact, moves all extremities Results - Labs CBC & Chem 7: 11/05/18 11:22 11/03/18 05:19 Labs: Laboratory Last Values WBC 24.9 K/mm3 (4.5-11.0) H 11/05/18 11:22 RBC 2.80 M/mm3 (3.65-5.03) L 11/05/18 11:22 Hgb 6.8 gm/dl (11.8-15.2) L 11/05/18 11:22 Hct 21.0 % (35.5-45.6) L 11/05/18 11:22 MCV 75 fl (84-94) L 11/05/18 11:22 MCH 24 pg (28-32) L 11/05/18 11:22 MCHC 33 % (32-34) 11/05/18 11:22 RDW 19.9 % (13.2-15.2) H 11/05/18 11:22 Plt Count 186 K/mm3 (140-440) 11/05/18 11:22 Lymph % (Auto) 5.8 % (13.4-35.0) L 11/03/18 05:19 [place] % (Auto) 4.5 % (0.0-7.3) 11/03/18 05:19 Eos % (Auto) 0.1 % (0.0-4.3) 11/03/18 05:19 Baso % (Auto) 0.1 % (0.0-1.8) 11/03/18 05:19 Lymph # 1.2 K/mm3 (1.2-5.4) 11/03/18 05:19 [place] # 0.9 K/mm3 (0.0-0.8) H 11/03/18 05:19 Eos # 0.0 K/mm3 (0.0-0.4) 11/03/18 05:19 Baso # 0.0 K/mm3 (0.0-0.1) 11/03/18 05:19 Add Manual Diff Complete 11/05/18 11:22 Total Counted 100 11/05/18 11:22 Seg Neutrophils % Police Lieutenant Patrol 11/05/18 11:22 Seg Neuts % (Manual) 96.0 % (40.0-70.0) H 11/05/18 11:22 0 % 11/05/18 11:22 3.0 % (13.4-35.0) L 11/05/18 11:22 Reactive Lymphs % (Man) 0 % 11/05/18 11:22 1.0 % (0.0-7.3) 11/05/18 11:22 0 % (0.0-4.3) 11/05/18 11:22 0 % (0.0-1.8) 11/05/18 11:22 0 % 11/05/18 11:22 0 % 11/05/18 11:22 0 % 11/05/18 11:22 0 % 11/05/18 11:22 Nucleated RBC % Not Reportable 11/05/18 11:22 Seg Neutrophils # 17.9 K/mm3 (1.8-7.7) H 11/03/18 05:19 Seg Neutrophils # Man 23.9 K/mm3 (1.8-7.7) H 11/05/18 11:22 Band Neutrophils # 0.0 K/mm3 11/05/18 11:22 0.7 K/mm3 (1.2-5.4) L 11/05/18 11:22 Abs React Lymphs (Man) 0.0 K/mm3 11/05/18 11:22 0.2 K/mm3 (0.0-0.8) 11/05/18 11:22 0.0 K/mm3 (0.0-0.4) 11/05/18 11:22 0.0 K/mm3 (0.0-0.1) 11/05/18 11:22 0.0 K/mm3 11/05/18 11:22 0.0 K/mm3 11/05/18 11:22 0.0 K/mm3 11/05/18 11:22 Blast Cells # 0.0 K/mm3 11/05/18 11:22 WBC Morphology Not Reportable 11/05/18 11:22 Hypersegmented Neuts Not Reportable 11/05/18 11:22 Hyposegmented Neuts Not Reportable 11/05/18 11:22 Hypogranular Neuts Not Reportable 11/05/18 11:22 Not Reportable 11/05/18 11:22 Not Reportable 11/05/18 11:22 Not Reportable 11/05/18 11:22 Not Reportable 11/05/18 11:22 Not Reportable 11/05/18 11:22 Not Reportable 11/05/18 11:22 Consistent w auto 11/05/18 11:22 Not Reportable 11/05/18 11:22 Plt Clumps, EDTA Not Reportable 11/05/18 11:22 Not Reportable 11/05/18 11:22 Not Reportable 11/05/18 11:22 Not Reportable 11/05/18 11:22 Plt Morphology Comment Not Reportable 11/05/18 11:22 RBC Morphology Not Reportable 11/05/18 11:22 Dimorphic RBCs Not Reportable 11/05/18 11:22 Not Reportable 11/05/18 11:22 1+ 11/05/18 11:22 1+ 11/05/18 11:22 1+ 11/05/18 11:22 Not Reportable 11/05/18 11:22 Not Reportable 11/05/18 11:22 Not Reportable 11/05/18 11:22 Not Reportable 11/05/18 11:22 Not Reportable 11/05/18 11:22 Not Reportable 11/05/18 11:22 Few 11/05/18 11:22 Few 11/05/18 11:22 Not Reportable 11/05/18 11:22 Not Reportable 11/05/18 11:22 Not Reportable 11/05/18 11:22 Not Reportable 11/05/18 11:22 Not Reportable 11/05/18 11:22 Not Reportable 11/05/18 11:22 Not Reportable 11/05/18 11:22 Acanthocytes (Spur) Not Reportable 11/05/18 11:22 Rouleaux Not Reportable 11/05/18 11:22 Not Reportable 11/05/18 11:22 Rare 11/05/18 11:22 Not Reportable 11/05/18 11:22 ESR 85 mm/Hr (0-20) 11/03/18 05:19 Not Reportable 11/05/18 11:22 Hem Pathologist Commnt No 11/05/18 11:22 Sodium 144 mmol/L (137-145) 11/03/18 05:19 Potassium 4.2 mmol/L (3.6-5.0) 11/03/18 05:19 Chloride 111.2 mmol/L (98-107) H 11/03/18 05:19 Carbon Dioxide 24 mmol/L (22-30) 11/03/18 05:19 13 mmol/L 11/03/18 05:19 BUN 58 mg/dL (9-20) H 11/03/18 05:19 1.4 mg/dL (0.8-1.5) 11/03/18 05:19 Estimated GFR > 60 ml/min 11/03/18 05:19 41 % 11/03/18 05:19 Glucose 57 mg/dL (75-100) L 11/03/18 05:19 POC Glucose 81 (70-105) 11/05/18 21:26 4.7 % (4-6) 11/01/18 23:29 Lactic Acid 1.80 mmol/L (0.7-2.0) 11/02/18 05:45 Calcium 6.9 mg/dL (8.4-10.2) L 11/03/18 05:19 0.40 mg/dL (0.1-1.2) 11/02/18 02:49 AST 16 units/L (5-40) 11/02/18 02:49 ALT 7 units/L (7-56) 11/02/18 02:49 144 units/L (35-129) H 11/02/18 02:49 0.429 ng/mL (0.00-0.029) H* D 11/02/18 21:30 14.30 mg/dL (0.00-1.30) H 11/03/18 05:19 NT-Pro-B Natriuret Pep 2622 pg/mL (0-450) H 11/01/18 15:53 6.5 g/dL (6.3-8.2) 11/02/18 02:49 1.6 g/dL (3.9-5) L 11/02/18 02:49 0.3 % 11/02/18 02:49 Triglycerides 34 mg/dL (2-149) 11/01/18 15:53 Cholesterol 54 mg/dL (50-199) 11/01/18 15:53 23 mg/dL (50-130) L 11/01/18 15:53 25 mg/dL (40-59) L 11/01/18 15:53 2.16 % 11/01/18 15:53 Elena (Yellow) 11/02/18 18:10 Cloudy (Clear) 11/02/18 18:10 9.0 (5.0-7.0) H 11/02/18 18:10 Ur Specific [place] 1.014 (1.003-1.030) 11/02/18 18:10 100 mg/dl mg/dL (Negative) 11/02/18 18:10 Neg mg/dL (Negative) 11/02/18 18:10 Neg mg/dL (Negative) 11/02/18 18:10 Sm (Negative) 11/02/18 18:10 Neg (Negative) 11/02/18 18:10 Neg (Negative) 11/02/18 18:10 < 2.0 mg/dL (<2.0) 11/02/18 18:10 Ur Leukocyte Esterase Lg (Negative) 11/02/18 18:10 58.0 /HPF (0.0-6.0) H 11/02/18 18:10 40.0 /HPF (0.0-6.0) 11/02/18 18:10 U Epithel Cells (Auto) 2.0 /HPF (0-13.0) 11/02/18 18:10 Triple Phos Crystals 3+ 11/02/18 18:10 Few /HPF 11/02/18 18:10 Vancomycin Trough 40.2 ug/mL (5.0-20.0) H 11/05/18 19:45 Active Medications - Current Medications Current Medications: Generic Name Dose Route Start Last Admin Trade Name Freq PRN Reason Stop Dose Admin Acetaminophen 650 mg 11/01/18 22:40 Tylenol PO Q4H PRN Pain MILD(1-3)/Fever >100.5/NOWAK Lipase/Protease/Amylase 1 each 11/02/18 07:30 11/06/18 08:56 Garth Rodriguez 12,000 Units PO 1 each AC YURI Administration Cholestyramine Resin 4 gm 11/02/18 10:00 11/05/18 21:21 Questran PO 4 gm BID YURI Administration Enoxaparin Sodium 40 mg 11/02/18 22:00 11/05/18 21:21 Lovenox SUB-Q 40 mg QDAY@2200 YURI Administration Hydralazine HCl 10 mg 11/05/18 23:22 11/06/18 06:26 Apresoline IV 10 mg Q4H PRN Administration Blood Pressure Hydromorphone HCl 0.5 mg 11/01/18 22:40 11/06/18 06:28 Dilaudid IV 0.5 mg Q3H PRN Administration Pain , Severe (7-10) Piperacillin Sod/Tazobactam Sod 4.5 gm in 100 mls @ 200 mls/hr 11/01/18 16:30 11/06/18 06:26 Zosyn/Ns 4.5gm/100ml IV 200 mls/hr Q8HR YURI Administration Protocol Vancomycin HCl 1,250 mg/ 275 mls @ 166.667 mls/hr 11/02/18 08:00 11/06/18 08:57 Sodium Chloride IV 166.667 mls/hr Q12H YURI Administration Dextrose/Sodium Chloride 1,000 mls @ 100 mls/hr 11/03/18 23:00 11/06/18 03:48 D5/0.45ns IV 100 mls/hr DIRECT YURI Administration Sodium Chloride 1,000 mls @ 42 mls/hr 11/04/18 16:00 Nacl 0.9% 1000 Ml IV DIRECT YURI Insulin Human Lispro 0 unit 11/02/18 07:30 11/06/18 08:54 Humalog SUB-Q Not Given ACHS [facility] Protocol Metoclopramide HCl 10 mg 11/01/18 22:40 Reglan IV Q6H PRN Nausea And Vomiting Metoprolol Tartrate 50 mg 11/02/18 22:00 11/05/18 21:22 Lopressor PO 50 mg BID YURI Administration Ondansetron HCl 4 mg 11/01/18 22:40 Zofran IV Q8H PRN Nausea And Vomiting Oxycodone/Acetaminophen 1 tab 11/02/18 06:36 11/05/18 12:28 Percocet 5/325 PO 1 tab Q6HR PRN Administration Pain Pantoprazole Sodium 40 mg 11/02/18 10:00 11/05/18 09:41 Protonix PO 40 mg QDAY YURI Administration Pregabalin 75 mg 11/02/18 10:00 11/05/18 21:24 Lyrica PO 75 mg BID YURI Administration Sodium Chloride 10 ml 11/02/18 10:00 11/05/18 21:23 Sodium Chloride Flush Syringe 10 Ml IV 10 ml BID YURI Administration Sodium Chloride 10 ml 11/01/18 22:40 11/04/18 21:12 Sodium Chloride Flush Syringe 10 Ml IV 10 ml PRN PRN Administration LINE FLUSH Sodium Hypochlorite 1 applic 11/05/18 15:00 11/05/18 21:29 Dakin's Half Strength TP 1 applicatio BID YURI Administration Spironolactone 25 mg 11/02/18 10:00 11/05/18 09:41 Aldactone PO 25 mg QDAY YURI Administration Torsemide 40 mg 11/02/18 07:00 11/06/18 06:29 Demadex PO 40 mg BID@0600,1800 YURI Administration Nutrition/Malnutrition Assess - Dietary Evaluation Nutrition/Malnutrition Findings: Nutrition Notes Start: 11/02/18 11:58 Freq: Status: Active Protocol: Document 11/04/18 15:05 RM (Rec: 11/04/18 15:10 RM [id number]) Nutrition Notes Initial or Follow up Reassessment Current Diagnosis Decubitus(Pressure Ulcer), Diabetes,Sepsis,Hypertension Other Pertinent Diagnosis multiple wounds, Hx BKA Current Diet NPO Labs/Tests Reviewed Pertinent Medications Reviewed Height 6 ft 4 in Weight 82.8 kg [place] Body Weight (kg) 91.81 BMI 22.2 Subjective/Other Information Pt stated that prior to NPO his appetite was good and that he ate most of his meals. Noted temporal wasting. Percent of energy/protein needs met: 100%/100% (prior to NPO) Burn Absent Trauma Absent #2 Nutrition Diagnosis Increased nutrient needs ( specify in comment below) Diagnosis Progress(for reassessment Continues documentation) #1 Nutrition Diagnosis Malnutrition Diagnosis Progress(for reassessment Continues documentation) Is patient on ventilator? No Is Patient Ambulatory and/or Out of Bed No REE-([place]-[facility] Jeor-confined to bed) [phone] Calculation Used for [facility]ations [facility] Additional Notes Protein needs are 97-122g (1.2 -1.5g/kg) Fluid needs are 1ml/kcal Nutrition Intervention Change Diet Order: Advance diet when medically able Add Supplement/Snack (indicate name/kcal Continue double portions once /protein ) diet advanced Goal #1 Diet advancement Goal #2 Wound healing Goal #3 Wt gain/maintenance Anticipated Discharge Needs: Cardiac consistent CHO with extra protein Follow-Up By: 11/12/18 Additional Comments Follow for PO and ONS intakes
[2018-11-06] MEDS: SODIUM CHLORIDE FLUSH SYRINGE 10 ML IV SCH ×2 (10:00→22:18)
[2018-11-06] MEDS: DAKIN'S HALF STRENGTH TP SCH ×3 (10:00→22:17)
[2018-11-06] MEDS: LOPRESSOR PO SCH ×2 (11:37→22:19)
[2018-11-06] MEDS: ALDACTONE PO SCH (11:38)
[2018-11-06] MEDS: LYRICA PO SCH ×3 (11:38→22:18)
[2018-11-06] MEDS: PROTONIX PO SCH ×2 (11:38→11:41)
[2018-11-06] MEDS: QUESTRAN PO SCH ×2 (11:40→22:17)
[2018-11-06] MEDS: LOVENOX SUB-Q SCH (22:17)
[2018-11-07] MEDS: PERCOCET 5/325 PO PRN (01:23)
[2018-11-07] MEDS: DEMADEX PO SCH ×2 (05:33→17:00)
[2018-11-07] MEDS: ZOSYN/NS 4.5GM/100ML 4.5 GM/100 ML VIAL IV SCH ×3 (05:33→22:07)
[2018-11-07] MEDS: DILAUDID IV PRN ×3 (05:34→22:04)
[2018-11-07] MEDS: CREON DR 12,000 UNITS PO SCH ×3 (07:57→16:59)
[2018-11-07] MEDS: HumaLOG SUB-Q SCH ×5 (08:21→22:14)
--- NOTE | 2018-11-07 10:00 | Progress Note ---
Assessment and Plan Assessment and plan: Sepsis secondary to pneumonia, bacteremia and probable osteomyelitis. Continue antibiotics per ID Sacral decubitus ulcer - high concern for osteomyelitis, wound likely down to the bone. Will likely need 6 weeks of IV antibiotics empirically. MRI of pelvis ordered but patient unable to complete due to intolerance/pain. Will discuss with ID plans for antibiotics. Follow-up deep wound or bone cultures during debridement. CoNS Bacteremia: blood cultures 1 out of 4 bottles. likely a contaminant. Follow-up repeat blood cultures. NSTEMI 2. Etiology probably secondary to #1. Pt with elevated troponin but denies any occurrence of cardiac symptoms. ECG with no acute ischemic changes. Echo revealed EF 50-55%, LA mildly dilated, small pericardial effusion, left pleural effusion. Stress test was found to be negative. Penile discharge - swabbed. Hx of BKA Hypertension. Continue antihypertensive medications. Afib. Currently NSR. Cardiology Will not initiate systemic AC at this time in setting of anemia and impending surgery. Likely resume AC postoperatively. DM2. Continue Accu-Cheks and sliding scale insulin. Severe protein calorie malnutrition. History Interval history: New issues overnight. Hospitalist Physical - Constitutional Vitals: Temp Pulse Resp BP Pulse Ox 97.7 F 65 20 173/70 100 11/07/18 05:35 11/07/18 05:35 11/07/18 05:35 11/07/18 05:35 11/07/18 05:35 General appearance: Present: no acute distress - EENT Eyes: Present: PERRL, EOM intact ENT: hearing intact, clear oral mucosa, dentition normal - Neck Neck: Present: supple, normal ROM - Respiratory Respiratory effort: normal Respiratory: bilateral: CTA - Cardiovascular Rhythm: regular Heart Sounds: Present: S1 & S2. Absent: gallop, rub - Extremities Extremities: no ischemia, No edema, Full ROM - Abdominal General gastrointestinal: soft, non-tender, non-distended, normal bowel sounds - Integumentary Integumentary: Present: clear, warm, dry - Neurologic Neurologic: CNII-XII intact, moves all extremities Results - Labs CBC & Chem 7: 11/05/18 11:22 11/03/18 05:19 Labs: Laboratory Last Values WBC 24.9 K/mm3 (4.5-11.0) H 11/05/18 11:22 RBC 2.80 M/mm3 (3.65-5.03) L 11/05/18 11:22 Hgb 6.8 gm/dl (11.8-15.2) L 11/05/18 11:22 Hct 21.0 % (35.5-45.6) L 11/05/18 11:22 MCV 75 fl (84-94) L 11/05/18 11:22 MCH 24 pg (28-32) L 11/05/18 11:22 MCHC 33 % (32-34) 11/05/18 11:22 RDW 19.9 % (13.2-15.2) H 11/05/18 11:22 Plt Count 186 K/mm3 (140-440) 11/05/18 11:22 Lymph % (Auto) 5.8 % (13.4-35.0) L 11/03/18 05:19 [place] % (Auto) 4.5 % (0.0-7.3) 11/03/18 05:19 Eos % (Auto) 0.1 % (0.0-4.3) 11/03/18 05:19 Baso % (Auto) 0.1 % (0.0-1.8) 11/03/18 05:19 Lymph # 1.2 K/mm3 (1.2-5.4) 11/03/18 05:19 [place] # 0.9 K/mm3 (0.0-0.8) H 11/03/18 05:19 Eos # 0.0 K/mm3 (0.0-0.4) 11/03/18 05:19 Baso # 0.0 K/mm3 (0.0-0.1) 11/03/18 05:19 Add Manual Diff Complete 11/05/18 11:22 Total Counted 100 11/05/18 11:22 Seg Neutrophils % 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[employer]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 11/05/18 11:22 Seg Neuts % (Manual) 96.0 % (40.0-70.0) H 11/05/18 11:22 0 % 11/05/18 11:22 3.0 % (13.4-35.0) L 11/05/18 11:22 Reactive Lymphs % (Man) 0 % 11/05/18 11:22 1.0 % (0.0-7.3) 11/05/18 11:22 0 % (0.0-4.3) 11/05/18 11:22 0 % (0.0-1.8) 11/05/18 11:22 0 % 11/05/18 11:22 0 % 11/05/18 11:22 0 % 11/05/18 11:22 0 % 11/05/18 11:22 Nucleated RBC % Not Reportable 11/05/18 11:22 Seg Neutrophils # 17.9 K/mm3 (1.8-7.7) H 11/03/18 05:19 Seg Neutrophils # Man 23.9 K/mm3 (1.8-7.7) H 11/05/18 11:22 Band Neutrophils # 0.0 K/mm3 11/05/18 11:22 0.7 K/mm3 (1.2-5.4) L 11/05/18 11:22 Abs React Lymphs (Man) 0.0 K/mm3 11/05/18 11:22 0.2 K/mm3 (0.0-0.8) 11/05/18 11:22 0.0 K/mm3 (0.0-0.4) 11/05/18 11:22 0.0 K/mm3 (0.0-0.1) 11/05/18 11:22 0.0 K/mm3 11/05/18 11:22 0.0 K/mm3 11/05/18 11:22 0.0 K/mm3 11/05/18 11:22 Blast Cells # 0.0 K/mm3 11/05/18 11:22 WBC Morphology Not Reportable 11/05/18 11:22 Hypersegmented Neuts Not Reportable 11/05/18 11:22 Hyposegmented Neuts Not Reportable 11/05/18 11:22 Hypogranular Neuts Not Reportable 11/05/18 11:22 Not Reportable 11/05/18 11:22 Not Reportable 11/05/18 11:22 Not Reportable 11/05/18 11:22 Not Reportable 11/05/18 11:22 Not Reportable 11/05/18 11:22 Not Reportable 11/05/18 11:22 Consistent w auto 11/05/18 11:22 Not Reportable 11/05/18 11:22 Plt Clumps, EDTA Not Reportable 11/05/18 11:22 Not Reportable 11/05/18 11:22 Not Reportable 11/05/18 11:22 Not Reportable 11/05/18 11:22 Plt Morphology Comment Not Reportable 11/05/18 11:22 RBC Morphology Not Reportable 11/05/18 11:22 Dimorphic RBCs Not Reportable 11/05/18 11:22 Not Reportable 11/05/18 11:22 1+ 11/05/18 11:22 1+ 11/05/18 11:22 1+ 11/05/18 11:22 Not Reportable 11/05/18 11:22 Not Reportable 11/05/18 11:22 Not Reportable 11/05/18 11:22 Not Reportable 11/05/18 11:22 Not Reportable 11/05/18 11:22 Not Reportable 11/05/18 11:22 Few 11/05/18 11:22 Few 11/05/18 11:22 Not Reportable 11/05/18 11:22 Not Reportable 11/05/18 11:22 Not Reportable 11/05/18 11:22 Not Reportable 11/05/18 11:22 Not Reportable 11/05/18 11:22 Not Reportable 11/05/18 11:22 Not Reportable 11/05/18 11:22 Acanthocytes (Spur) Not Reportable 11/05/18 11:22 Rouleaux Not Reportable 11/05/18 11:22 Not Reportable 11/05/18 11:22 Rare 11/05/18 11:22 Not Reportable 11/05/18 11:22 ESR 85 mm/Hr (0-20) 11/03/18 05:19 Not Reportable 11/05/18 11:22 Hem Pathologist Commnt No 11/05/18 11:22 Sodium 144 mmol/L (137-145) 11/03/18 05:19 Potassium 4.2 mmol/L (3.6-5.0) 11/03/18 05:19 Chloride 111.2 mmol/L (98-107) H 11/03/18 05:19 Carbon Dioxide 24 mmol/L (22-30) 11/03/18 05:19 13 mmol/L 11/03/18 05:19 BUN 58 mg/dL (9-20) H 11/03/18 05:19 1.4 mg/dL (0.8-1.5) 11/03/18 05:19 Estimated GFR > 60 ml/min 11/03/18 05:19 41 % 11/03/18 05:19 Glucose 57 mg/dL (75-100) L 11/03/18 05:19 POC Glucose 102 (70-105) 11/07/18 08:05 4.7 % (4-6) 11/01/18 23:29 Lactic Acid 1.80 mmol/L (0.7-2.0) 11/02/18 05:45 Calcium 6.9 mg/dL (8.4-10.2) L 11/03/18 05:19 0.40 mg/dL (0.1-1.2) 11/02/18 02:49 AST 16 units/L (5-40) 11/02/18 02:49 ALT 7 units/L (7-56) 11/02/18 02:49 144 units/L (35-129) H 11/02/18 02:49 0.429 ng/mL (0.00-0.029) H* D 11/02/18 21:30 14.30 mg/dL (0.00-1.30) H 11/03/18 05:19 NT-Pro-B Natriuret Pep 2622 pg/mL (0-450) H 11/01/18 15:53 6.5 g/dL (6.3-8.2) 11/02/18 02:49 1.6 g/dL (3.9-5) L 11/02/18 02:49 0.3 % 11/02/18 02:49 Triglycerides 34 mg/dL (2-149) 11/01/18 15:53 Cholesterol 54 mg/dL (50-199) 11/01/18 15:53 23 mg/dL (50-130) L 11/01/18 15:53 25 mg/dL (40-59) L 11/01/18 15:53 2.16 % 11/01/18 15:53 Elena (Yellow) 11/02/18 18:10 Cloudy (Clear) 11/02/18 18:10 9.0 (5.0-7.0) H 11/02/18 18:10 Ur Specific [place] 1.014 (1.003-1.030) 11/02/18 18:10 100 mg/dl mg/dL (Negative) 11/02/18 18:10 Neg mg/dL (Negative) 11/02/18 18:10 Neg mg/dL (Negative) 11/02/18 18:10 Sm (Negative) 11/02/18 18:10 Neg (Negative) 11/02/18 18:10 Neg (Negative) 11/02/18 18:10 < 2.0 mg/dL (<2.0) 11/02/18 18:10 Ur Leukocyte Esterase Lg (Negative) 11/02/18 18:10 58.0 /HPF (0.0-6.0) H 11/02/18 18:10 40.0 /HPF (0.0-6.0) 11/02/18 18:10 U Epithel Cells (Auto) 2.0 /HPF (0-13.0) 11/02/18 18:10 Triple Phos Crystals 3+ 11/02/18 18:10 Few /HPF 11/02/18 18:10 Vancomycin Trough 40.2 ug/mL (5.0-20.0) H 11/05/18 19:45 C.trachomatis DNA (SDA) Not detected (Not Detected) 11/02/18 14:08 N.gonorrhoeae DNA (SDA) Not detected (Not Detected) 11/02/18 14:08 Active Medications - Current Medications Current Medications: Generic Name Dose Route Start Last Admin Trade Name Freq PRN Reason Stop Dose Admin Acetaminophen 650 mg 11/01/18 22:40 Tylenol PO Q4H PRN Pain MILD(1-3)/Fever >100.5/NOWAK Lipase/Protease/Amylase 1 each 11/02/18 07:30 11/07/18 07:57 Garth Rodriguez 12,000 Units PO 1 each AC YURI Administration Cholestyramine Resin 4 gm 11/02/18 10:00 11/06/18 22:17 Questran PO 4 gm BID YURI Administration Enoxaparin Sodium 40 mg 11/02/18 22:00 11/06/18 22:17 Lovenox SUB-Q 40 mg QDAY@2200 YURI Administration Hydralazine HCl 10 mg 11/05/18 23:22 11/06/18 06:26 Apresoline IV 10 mg Q4H PRN Administration Blood Pressure Hydromorphone HCl 0.5 mg 11/01/18 22:40 11/07/18 05:34 Dilaudid IV 0.5 mg Q3H PRN Administration Pain , Severe (7-10) Piperacillin Sod/Tazobactam Sod 4.5 gm in 100 mls @ 200 mls/hr 11/01/18 16:30 11/07/18 05:33 Zosyn/Ns 4.5gm/100ml IV 200 mls/hr Q8HR YURI Administration Protocol Dextrose/Sodium Chloride 1,000 mls @ 100 mls/hr 11/03/18 23:00 11/06/18 18:12 D5/0.45ns IV 100 mls/hr DIRECT YURI Administration Sodium Chloride 1,000 mls @ 42 mls/hr 11/04/18 16:00 Nacl 0.9% 1000 Ml IV DIRECT YURI Insulin Human Lispro 0 unit 11/02/18 07:30 11/07/18 08:21 Humalog SUB-Q Not Given ACHS [facility] Protocol Metoclopramide HCl 10 mg 11/01/18 22:40 Reglan IV Q6H PRN Nausea And Vomiting Metoprolol Tartrate 50 mg 11/02/18 22:00 11/06/18 22:19 Lopressor PO 50 mg BID YURI Administration Ondansetron HCl 4 mg 11/01/18 22:40 Zofran IV Q8H PRN Nausea And Vomiting Oxycodone/Acetaminophen 1 tab 11/02/18 06:36 11/07/18 01:23 Percocet 5/325 PO 1 tab Q6HR PRN Administration Pain Pantoprazole Sodium 40 mg 11/02/18 10:00 11/06/18 11:41 Protonix PO 40 mg QDAY YURI Administration Pregabalin 75 mg 11/02/18 10:00 11/06/18 22:18 Lyrica PO 75 mg BID YURI Administration Sodium Chloride 10 ml 11/02/18 10:00 11/06/18 22:18 Sodium Chloride Flush Syringe 10 Ml IV 10 ml BID YURI Administration Sodium Chloride 10 ml 11/01/18 22:40 11/04/18 21:12 Sodium Chloride Flush Syringe 10 Ml IV 10 ml PRN PRN Administration LINE FLUSH Sodium Hypochlorite 1 applic 11/05/18 15:00 11/06/18 22:17 Dakin's Half Strength TP Not Given BID YURI Spironolactone 25 mg 11/02/18 10:00 11/06/18 11:38 Aldactone PO 25 mg QDAY YURI Administration Torsemide 40 mg 11/02/18 07:00 11/07/18 05:33 Demadex PO 40 mg BID@0600,1800 YURI Administration Nutrition/Malnutrition Assess - Dietary Evaluation Nutrition/Malnutrition Findings: Nutrition Notes Start: 11/02/18 11:58 Freq: Status: Active Protocol: Document 11/04/18 15:05 RM (Rec: 11/04/18 15:10 RM [id number]) Nutrition Notes Initial or Follow up Reassessment Current Diagnosis Decubitus(Pressure Ulcer), Diabetes,Sepsis,Hypertension Other Pertinent Diagnosis multiple wounds, Hx BKA Current Diet NPO Labs/Tests Reviewed Pertinent Medications Reviewed Height 6 ft 4 in Weight 82.8 kg [place] Body Weight (kg) 91.81 BMI 22.2 Subjective/Other Information Pt stated that prior to NPO his appetite was good and that he ate most of his meals. Noted temporal wasting. Percent of energy/protein needs met: 100%/100% (prior to NPO) Burn Absent Trauma Absent #2 Nutrition Diagnosis Increased nutrient needs ( specify in comment below) Diagnosis Progress(for reassessment Continues documentation) #1 Nutrition Diagnosis Malnutrition Diagnosis Progress(for reassessment Continues documentation) Is patient on ventilator? No Is Patient Ambulatory and/or Out of Bed No REE-([facility]-confined to bed) [phone] Calculation Used for Recommendations [facility] Additional Notes Protein needs are 97-122g (1.2 -1.5g/kg) Fluid needs are 1ml/kcal Nutrition Intervention Change Diet Order: Advance diet when medically able Add Supplement/Snack (indicate name/kcal Continue double portions once /protein ) diet advanced Goal #1 Diet advancement Goal #2 Wound healing Goal #3 Wt gain/maintenance Anticipated Discharge Needs: Cardiac consistent CHO with extra protein Follow-Up By: 11/12/18 Additional Comments Follow for PO and ONS intakes
[2018-11-07] MEDS: QUESTRAN PO SCH ×2 (10:37→22:07)
[2018-11-07] MEDS: ALDACTONE PO SCH (10:38)
[2018-11-07] MEDS: LOPRESSOR PO SCH ×2 (10:38→22:09)
[2018-11-07] MEDS: PROTONIX PO SCH (10:38)
[2018-11-07] MEDS: LYRICA PO SCH ×2 (10:38→22:09)
[2018-11-07] MEDS: SODIUM CHLORIDE FLUSH SYRINGE 10 ML IV SCH ×2 (10:39→22:14)
[2018-11-07] MEDS: DAKIN'S HALF STRENGTH TP SCH ×2 (10:39→22:13)
[2018-11-07] MEDS: D5/0.45NS 1,000 ML IV SCH (10:40)
[2018-11-07 11:52] LABS: Basophils % (Auto) 0.1 % (0.0-1.8); Eosinophils % (Auto) 0.3 % (0.0-4.3); Lymphocytes % (Auto) 8.2 % (13.4-35.0); Mean Corpuscular HGB Conc 31 % (32-34); Mean Corpuscular Volume 77 fl (84-94); Monocytes # (Auto) 0.6 K/mm3 (0.0-0.8); Monocytes % (Auto) 5.1 % (0.0-7.3); Platelet Count 150 K/mm3 (140-440); Red Blood Count 2.54 M/mm3 (3.65-5.03); Red Cell Distribution Width 19.3 % (13.2-15.2)
[2018-11-07 11:53] LABS: BUN/Creatinine Ratio 40; Blood Urea Nitrogen 52 mg/dL (9-20); Calcium 6.3 mg/dL (8.4-10.2); Hemolysis Index 9
[2018-11-07 12:06] LABS: Hematocrit 19.4 % (35.5-45.6)
[2018-11-07] MEDS ORDERED: NACL 0.9% 500 ML 500 ML IV ONE (13:00)
[2018-11-07] MEDS ORDERED: KCL 10MEQ/100ML 10 MEQ/100 ML BAG IV ONE (13:00)
[2018-11-07] MEDS ORDERED: K-DUR PO ONE ×2 (13:00→15:35)
[2018-11-07] MEDS: LOVENOX SUB-Q SCH (22:08)
[2018-11-08] MEDS ORDERED: NACL 0.9% 500 ML 500 ML IV ONE (01:00)
[2018-11-08] MEDS: ZOSYN/NS 4.5GM/100ML 4.5 GM/100 ML VIAL IV SCH (05:28)
[2018-11-08] MEDS: DEMADEX PO SCH ×2 (05:29→17:57)
[2018-11-08] MEDS: DILAUDID IV PRN (05:33)
[2018-11-08] MEDS: D5/0.45NS 1,000 ML IV SCH ×2 (06:16→17:51)
[2018-11-08] MEDS: HumaLOG SUB-Q SCH ×4 (07:30→22:06)
[2018-11-08] MEDS: CREON DR 12,000 UNITS PO SCH ×3 (07:30→16:30)
[2018-11-08 07:54] LABS: Basophils % (Auto) 0.2 % (0.0-1.8); Eosinophils % (Auto) 0.2 % (0.0-4.3); Hematocrit 24.4 % (35.5-45.6); Hemoglobin 8.1 gm/dl (11.8-15.2); Lymphocytes # (Auto) 1.4 K/mm3 (1.2-5.4); Lymphocytes % (Auto) 11.3 % (13.4-35.0); Mean Corpuscular HGB Conc 33 % (32-34); Mean Corpuscular Volume 74 fl (84-94); Monocytes # (Auto) 0.6 K/mm3 (0.0-0.8); Platelet Count 123 K/mm3 (140-440); Red Blood Count 3.31 M/mm3 (3.65-5.03); Red Cell Distribution Width 18.3 % (13.2-15.2)
[2018-11-08 08:30] LABS: BUN/Creatinine Ratio 37; Blood Urea Nitrogen 44 mg/dL (9-20); Calcium 6.6 mg/dL (8.4-10.2); Hemolysis Index 1
--- NOTE | 2018-11-08 09:53 | Progress Note ---
Assessment and Plan Assessment and plan: Sepsis secondary to pneumonia, bacteremia and probable osteomyelitis. Continue antibiotics per ID Sacral decubitus ulcer - high concern for osteomyelitis, wound likely down to the bone. Will likely need 6 weeks of IV antibiotics empirically. MRI of pelvis ordered but patient unable to complete due to intolerance/pain. Will discuss with ID plans for antibiotics. Follow-up deep wound or bone cultures during debridement. CoNS Bacteremia: blood cultures 1 out of 4 bottles. likely a contaminant. Follow-up repeat blood cultures. Anemia. Patient is s/p 2 units PRBCs. Check Hemoccult stool and iron studies, B12, folate and reticulocyte count. Etiology is likely of chronic disease. Follow-up CBC in a.m. NSTEMI 2. Etiology probably secondary to #1. Pt with elevated troponin but denies any occurrence of cardiac symptoms. ECG with no acute ischemic changes. Echo revealed EF 50-55%, LA mildly dilated, small pericardial effusion, left pleural effusion. Stress test was found to be negative. Penile discharge - swabbed. Hypokalemia. Replete potassium. Hx of BKA Hypertension. Continue antihypertensive medications. Afib. Currently NSR. Cardiology Will not initiate systemic AC at this time in setting of anemia and impending surgery. Likely resume AC postoperatively. DM2. Continue Accu-Cheks and sliding scale insulin. Severe protein calorie malnutrition. History Interval history: New issues overnight. Hospitalist Physical - Constitutional Vitals: Temp Pulse Resp BP Pulse Ox 98.5 F 65 18 167/75 100 11/08/18 05:45 11/08/18 05:45 11/08/18 05:45 11/08/18 05:45 11/08/18 00:29 General appearance: Present: no acute distress - EENT Eyes: Present: PERRL, EOM intact ENT: hearing intact, clear oral mucosa, dentition normal - Neck Neck: Present: supple, normal ROM - Respiratory Respiratory effort: normal Respiratory: bilateral: CTA - Cardiovascular Rhythm: regular Heart Sounds: Present: S1 & S2. Absent: gallop, rub - Extremities Extremities: no ischemia, No edema, Full ROM - Abdominal General gastrointestinal: soft, non-tender, non-distended, normal bowel sounds - Integumentary Integumentary: Present: clear, warm, dry - Neurologic Neurologic: CNII-XII intact, moves all extremities Results - Labs CBC & Chem 7: 11/08/18 07:25 11/08/18 07:25 Labs: Laboratory Last Values WBC 12.2 K/mm3 (4.5-11.0) H 11/08/18 07:25 RBC 3.31 M/mm3 (3.65-5.03) L 11/08/18 07:25 Hgb 8.1 gm/dl (11.8-15.2) L 11/08/18 07:25 Hct 24.4 % (35.5-45.6) L 11/08/18 07:25 MCV 74 fl (84-94) L 11/08/18 07:25 MCH 24 pg (28-32) L 11/08/18 07:25 MCHC 33 % (32-34) 11/08/18 07:25 RDW 18.3 % (13.2-15.2) H 11/08/18 07:25 Plt Count 123 K/mm3 (140-440) L 11/08/18 07:25 Lymph % (Auto) 11.3 % (13.4-35.0) L 11/08/18 07:25 [place] % (Auto) 5.0 % (0.0-7.3) 11/08/18 07:25 Eos % (Auto) 0.2 % (0.0-4.3) 11/08/18 07:25 Baso % (Auto) 0.2 % (0.0-1.8) 11/08/18 07:25 Lymph # 1.4 K/mm3 (1.2-5.4) 11/08/18 07:25 [place] # 0.6 K/mm3 (0.0-0.8) 11/08/18 07:25 Eos # 0.0 K/mm3 (0.0-0.4) 11/08/18 07:25 Baso # 0.0 K/mm3 (0.0-0.1) 11/08/18 07:25 Add Manual Diff Complete 11/05/18 11:22 Total Counted 100 11/05/18 11:22 Seg Neutrophils % 83.3 % (40.0-70.0) H 11/08/18 07:25 Seg Neuts % (Manual) 96.0 % (40.0-70.0) H 11/05/18 11:22 0 % 11/05/18 11:22 3.0 % (13.4-35.0) L 11/05/18 11:22 Reactive Lymphs % (Man) 0 % 11/05/18 11:22 1.0 % (0.0-7.3) 11/05/18 11:22 0 % (0.0-4.3) 11/05/18 11:22 0 % (0.0-1.8) 11/05/18 11:22 0 % 11/05/18 11:22 0 % 11/05/18 11:22 0 % 11/05/18 11:22 0 % 11/05/18 11:22 Nucleated RBC % Not Reportable 11/05/18 11:22 Seg Neutrophils # 10.2 K/mm3 (1.8-7.7) H 11/08/18 07:25 Seg Neutrophils # Man 23.9 K/mm3 (1.8-7.7) H 11/05/18 11:22 Band Neutrophils # 0.0 K/mm3 11/05/18 11:22 0.7 K/mm3 (1.2-5.4) L 11/05/18 11:22 Abs React Lymphs (Man) 0.0 K/mm3 11/05/18 11:22 0.2 K/mm3 (0.0-0.8) 11/05/18 11:22 0.0 K/mm3 (0.0-0.4) 11/05/18 11:22 0.0 K/mm3 (0.0-0.1) 11/05/18 11:22 0.0 K/mm3 11/05/18 11:22 0.0 K/mm3 11/05/18 11:22 0.0 K/mm3 11/05/18 11:22 Blast Cells # 0.0 K/mm3 11/05/18 11:22 WBC Morphology Not Reportable 11/05/18 11:22 Hypersegmented Neuts Not Reportable 11/05/18 11:22 Hyposegmented Neuts Not Reportable 11/05/18 11:22 Hypogranular Neuts Not Reportable 11/05/18 11:22 Not Reportable 11/05/18 11:22 Not Reportable 11/05/18 11:22 Not Reportable 11/05/18 11:22 Not Reportable 11/05/18 11:22 Not Reportable 11/05/18 11:22 Not Reportable 11/05/18 11:22 Consistent w auto 11/05/18 11:22 Not Reportable 11/05/18 11:22 Plt Clumps, EDTA Not Reportable 11/05/18 11:22 Not Reportable 11/05/18 11:22 Not Reportable 11/05/18 11:22 Not Reportable 11/05/18 11:22 Plt Morphology Comment Not Reportable 11/05/18 11:22 RBC Morphology Not Reportable 11/05/18 11:22 Dimorphic RBCs Not Reportable 11/05/18 11:22 Not Reportable 11/05/18 11:22 1+ 11/05/18 11:22 1+ 11/05/18 11:22 1+ 11/05/18 11:22 Not Reportable 11/05/18 11:22 Not Reportable 11/05/18 11:22 Not Reportable 11/05/18 11:22 Not Reportable 11/05/18 11:22 Not Reportable 11/05/18 11:22 Not Reportable 11/05/18 11:22 Few 11/05/18 11:22 Few 11/05/18 11:22 Not Reportable 11/05/18 11:22 Not Reportable 11/05/18 11:22 Not Reportable 11/05/18 11:22 Not Reportable 11/05/18 11:22 Not Reportable 11/05/18 11:22 Not Reportable 11/05/18 11:22 Not Reportable 11/05/18 11:22 Acanthocytes (Spur) Not Reportable 11/05/18 11:22 Rouleaux Not Reportable 11/05/18 11:22 Not Reportable 11/05/18 11:22 Rare 11/05/18 11:22 Not Reportable 11/05/18 11:22 ESR 85 mm/Hr (0-20) 11/03/18 05:19 Not Reportable 11/05/18 11:22 Hem Pathologist Commnt No 11/05/18 11:22 Sodium 142 mmol/L (137-145) 11/08/18 07:25 Potassium 3.2 mmol/L (3.6-5.0) L 11/08/18 07:25 Chloride 107.4 mmol/L (98-107) H 11/08/18 07:25 Carbon Dioxide 23 mmol/L (22-30) 11/08/18 07:25 15 mmol/L 11/08/18 07:25 BUN 44 mg/dL (9-20) H 11/08/18 07:25 1.2 mg/dL (0.8-1.5) 11/08/18 07:25 Estimated GFR > 60 ml/min 11/08/18 07:25 37 % 11/08/18 07:25 Glucose 64 mg/dL (75-100) L 11/08/18 07:25 POC Glucose 68 (70-105) L 11/08/18 07:54 4.7 % (4-6) 11/01/18 23:29 Lactic Acid 1.80 mmol/L (0.7-2.0) 11/02/18 05:45 Calcium 6.6 mg/dL (8.4-10.2) L 11/08/18 07:25 0.40 mg/dL (0.1-1.2) 11/02/18 02:49 AST 16 units/L (5-40) 11/02/18 02:49 ALT 7 units/L (7-56) 11/02/18 02:49 144 units/L (35-129) H 11/02/18 02:49 0.429 ng/mL (0.00-0.029) H* D 11/02/18 21:30 14.30 mg/dL (0.00-1.30) H 11/03/18 05:19 NT-Pro-B Natriuret Pep 2622 pg/mL (0-450) H 11/01/18 15:53 6.5 g/dL (6.3-8.2) 11/02/18 02:49 1.6 g/dL (3.9-5) L 11/02/18 02:49 0.3 % 11/02/18 02:49 Triglycerides 34 mg/dL (2-149) 11/01/18 15:53 Cholesterol 54 mg/dL (50-199) 11/01/18 15:53 23 mg/dL (50-130) L 11/01/18 15:53 25 mg/dL (40-59) L 11/01/18 15:53 2.16 % 11/01/18 15:53 Elena (Yellow) 11/02/18 18:10 Cloudy (Clear) 11/02/18 18:10 9.0 (5.0-7.0) H 11/02/18 18:10 Ur Specific [place] 1.014 (1.003-1.030) 11/02/18 18:10 100 mg/dl mg/dL (Negative) 11/02/18 18:10 Neg mg/dL (Negative) 11/02/18 18:10 Neg mg/dL (Negative) 11/02/18 18:10 Sm (Negative) 11/02/18 18:10 Neg (Negative) 11/02/18 18:10 Neg (Negative) 11/02/18 18:10 < 2.0 mg/dL (<2.0) 11/02/18 18:10 Ur Leukocyte Esterase Lg (Negative) 11/02/18 18:10 58.0 /HPF (0.0-6.0) H 11/02/18 18:10 40.0 /HPF (0.0-6.0) 11/02/18 18:10 U Epithel Cells (Auto) 2.0 /HPF (0-13.0) 11/02/18 18:10 Triple Phos Crystals 3+ 11/02/18 18:10 Few /HPF 11/02/18 18:10 Vancomycin Trough 40.2 ug/mL (5.0-20.0) H 11/05/18 19:45 Random Vancomycin 31.7 ug/mL (0-40.0) 11/07/18 11:32 C.trachomatis DNA (SDA) Not detected (Not Detected) 11/02/18 14:08 N.gonorrhoeae DNA (SDA) Not detected (Not Detected) 11/02/18 14:08 Blood Type A POSITIVE 11/07/18 14:55 Antibody Screen Negative 11/07/18 14:55 Crossmatch See Detail 11/07/18 14:55 Active Medications - Current Medications Current Medications: Generic Name Dose Route Start Last Admin Trade Name Freq PRN Reason Stop Dose Admin Acetaminophen 650 mg 11/01/18 22:40 Tylenol PO Q4H PRN Pain MILD(1-3)/Fever >100.5/NOWAK Lipase/Protease/Amylase 1 each 11/02/18 07:30 11/07/18 16:59 Garth Rodriguez 12,000 Units PO 1 each AC YURI Administration Cholestyramine Resin 4 gm 11/02/18 10:00 11/07/18 22:07 Questran PO 4 gm BID YURI Administration Enoxaparin Sodium 40 mg 11/02/18 22:00 11/07/18 22:08 Lovenox SUB-Q 40 mg QDAY@2200 YURI Administration Hydralazine HCl 10 mg 11/05/18 23:22 11/06/18 06:26 Apresoline IV 10 mg Q4H PRN Administration Blood Pressure Hydromorphone HCl 0.5 mg 11/01/18 22:40 11/08/18 05:33 Dilaudid IV 0.5 mg Q3H PRN Administration Pain , Severe (7-10) Piperacillin Sod/Tazobactam Sod 4.5 gm in 100 mls @ 200 mls/hr 11/01/18 16:30 11/08/18 05:28 Zosyn/Ns 4.5gm/100ml IV 200 mls/hr Q8HR YURI Administration Protocol Dextrose/Sodium Chloride 1,000 mls @ 100 mls/hr 11/03/18 23:00 11/08/18 06:16 D5/0.45ns IV 100 mls/hr DIRECT YURI Administration Sodium Chloride 1,000 mls @ 42 mls/hr 11/04/18 16:00 Nacl 0.9% 1000 Ml IV DIRECT YURI Insulin Human Lispro 0 unit 11/02/18 07:30 11/07/18 22:14 Humalog SUB-Q Not Given ACHS [facility] Protocol Metoclopramide HCl 10 mg 11/01/18 22:40 Reglan IV Q6H PRN Nausea And Vomiting Metoprolol Tartrate 50 mg 11/02/18 22:00 11/07/18 22:09 Lopressor PO 50 mg BID YURI Administration Ondansetron HCl 4 mg 11/01/18 22:40 Zofran IV Q8H PRN Nausea And Vomiting Oxycodone/Acetaminophen 1 tab 11/02/18 06:36 11/07/18 01:23 Percocet 5/325 PO 1 tab Q6HR PRN Administration Pain Pantoprazole Sodium 40 mg 11/02/18 10:00 11/07/18 10:38 Protonix PO 40 mg QDAY YURI Administration Pregabalin 75 mg 11/02/18 10:00 11/07/18 22:09 Lyrica PO 75 mg BID YURI Administration Sodium Chloride 10 ml 11/02/18 10:00 11/07/18 22:14 Sodium Chloride Flush Syringe 10 Ml IV 10 ml BID YURI Administration Sodium Chloride 10 ml 11/01/18 22:40 11/04/18 21:12 Sodium Chloride Flush Syringe 10 Ml IV 10 ml PRN PRN Administration LINE FLUSH Sodium Hypochlorite 1 applic 11/05/18 15:00 11/07/18 22:13 Dakin's Half Strength TP 1 applicatio BID YURI Administration Spironolactone 25 mg 11/02/18 10:00 11/07/18 10:38 Aldactone PO 25 mg QDAY YURI Administration Torsemide 40 mg 11/02/18 07:00 11/08/18 05:29 Demadex PO 40 mg BID@0600,1800 YURI Administration Nutrition/Malnutrition Assess - Dietary Evaluation Nutrition/Malnutrition Findings: Nutrition Notes Start: 11/02/18 11:58 Freq: Status: Active Protocol: Document 11/04/18 15:05 RM (Rec: 11/04/18 15:10 RM [email or web address]) Nutrition Notes Initial or Follow up Reassessment Current Diagnosis Decubitus(Pressure Ulcer), Diabetes,Sepsis,Hypertension Other Pertinent Diagnosis multiple wounds, Hx BKA Current Diet NPO Labs/Tests Reviewed Pertinent Medications Reviewed Height 6 ft 4 in Weight 82.8 kg [place] Body Weight (kg) 91.81 BMI 22.2 Subjective/Other Information Pt stated that prior to NPO his appetite was good and that he ate most of his meals. Noted temporal wasting. Percent of energy/protein needs met: 100%/100% (prior to NPO) Burn Absent Trauma Absent #2 Nutrition Diagnosis Increased nutrient needs ( specify in comment below) Diagnosis Progress(for reassessment Continues documentation) #1 Nutrition Diagnosis Malnutrition Diagnosis Progress(for reassessment Continues documentation) Is patient on ventilator? No Is Patient Ambulatory and/or Out of Bed No REE-([facility]-confined to bed) [phone] Calculation Used for Recommendations [facility] Additional Notes Protein needs are 97-122g (1.2 -1.5g/kg) Fluid needs are 1ml/kcal Nutrition Intervention Change Diet Order: Advance diet when medically able Add Supplement/Snack (indicate name/kcal Continue double portions once /protein ) diet advanced Goal #1 Diet advancement Goal #2 Wound healing Goal #3 Wt gain/maintenance Anticipated Discharge Needs: Cardiac consistent CHO with extra protein Follow-Up By: 11/12/18 Additional Comments Follow for PO and ONS intakes
--- NOTE | 2018-11-08 10:18 | Progress Note ---
Assessment and Plan Cultures: 11/01/18 Blood: CoNS, 1 out of 4 bottles 11/02/18 Penis Foreskin: Proteus, Morganela, E.faecalis 11/04/18 Blood: NGTD 11/04/18 Surgical Buttock: Klebsiella, Enterobacter A/P: 48 yo M with PMHx of bilateral BKA, HTN, afib, DM2, sleep apnea admitted with sacral decubitus ulcer, pneumonia and penile discharge. 1. Sepsis secondary to pneumonia - seen on CXR, would continue antibiotics with pip/tazo and vanco for now given myriad of infectious processes. Not short of breath currently. CRP 14.3. Blood CX CoNS 2. CoNS Bacteremia: blood cultures 1 out of 4 bottles. likely a contaminant. Follow-up repeat blood cultures to ensure clearance. 3. Sacral decubitus ulcer - high concern for osteomyelitis, wound likely down to the bone. Will need 6 weeks of IV antibiotics. S/p excisional debridement of sacral and right gluteal wound 11/04/18. Patient refusing MRI scan. 4. Penile discharge - swabbed with [employer]ICLE [employer]INTER, doesn't entirely appear to be discharge. Appears to be lesion on penis. Cultures grew Proteus, susceptible to pip/mike. gonorrhea and chlamydia screen negative 5. Hx of BKA 6. HTn 7. Afib 8. DM2 Recs: Discontinue vancomycin and Pip-tazo Start Ertapenem 1 gm IV every 24 hours for total 6 weeks ending 12-13-18 Order placed with case management Order placed with IR for Tunneled catheter. No PICC line access per IV nurse Wound care outpatient Follow-up ID clinic in 2 weeks (sent to software test engineer) [facility] M: [phone] O:[phone] Subjective Date of service: 11/08/18 Principal diagnosis: sepsis Interval history: Patient seen and examined. Siting up in bed. No acute distress reported. OPAT plan discussed, verbalized understanding. Objective - Exam Narrative Exam: Constitutional: Alert. Awake. No acute distress. Head, Ears, Nose: Normocephalic, atraumatic. External ears, nose normal Eyes: Conjunctivae/corneas clear. No icterus. No ptosis. Neck: Supple, no meningeal signs Oral: fair dentition, moist mucous membranes Cardiovascular: S1, S2 normal. Normal rhythm Respiratory: Good air entry, clear to auscultation bilaterally GI: Soft, non-tender; bowel sounds normal. No peritoneal signs : yellowish discharge/lesion on inferior aspect of penis, below the meatus. Unable to be easily wipe away Musculoskeletal: 3x wounds, deep. No obvious purulence. Bilateral BKA. Skin: No rash or abscess Hem/Lymphatic: No palpable cervical or supraclavicular nodes. No lymphangitis Psych: uncooperative. Flat affect Neurological: Moves all extremities, no focal defects - Constitutional Vitals: Vital Signs Temp Pulse Resp BP Pulse Ox 98.5 F 65 18 167/75 100 11/08/18 05:45 11/08/18 05:45 11/08/18 05:45 11/08/18 05:45 11/08/18 00:29 Temperature -Last 24 Hours Temperature 98.5 F Temperature 98.4 F Temperature 97.5 F Temperature 97.4 F Temperature 97.7 F Temperature 97.0 F Temperature 98.6 F Temperature 98.6 F Temperature 98.2 F Temperature 97.6 F Temperature 97.5 F Temperature 97.5 F Temperature 98.5 F Temperature 98.2 F Temperature 98.1 F Temperature 98.1 F Temperature 98.2 F Temperature 98.6 F - Labs CBC & Chem 7: 11/08/18 07:25 11/08/18 07:25 Labs: Abnormal lab results 11/07/18 11/07/18 11/07/18 Range/Units 11:21 11:32 11:32 WBC 12.5 H (4.5-11.0) K/mm3 RBC 2.54 L (3.65-5.03) M/mm3 Hgb 6.0 L (11.8-15.2) gm/dl Hct 19.4 L* (35.5-45.6) % MCV 77 L (84-94) fl MCH 24 L (28-32) pg MCHC 31 L (32-34) % RDW 19.3 H (13.2-15.2) % Plt Count (140-440) K/mm3 Lymph % (Auto) 8.2 L (13.4-35.0) % Lymph # 1.0 L (1.2-5.4) K/mm3 Seg Neutrophils % 86.3 H (40.0-70.0) % Seg Neutrophils # 10.8 H (1.8-7.7) K/mm3 Potassium 2.8 L* D (3.6-5.0) mmol/L Chloride (98-107) mmol/L Carbon Dioxide 19 L (22-30) mmol/L BUN 52 H (9-20) mg/dL Glucose (75-100) mg/dL POC Glucose 226 H (70-105) Calcium 6.3 L (8.4-10.2) mg/dL Crossmatch 11/07/18 11/07/18 11/07/18 Range/Units 14:55 16:50 17:15 WBC (4.5-11.0) K/mm3 RBC (3.65-5.03) M/mm3 Hgb (11.8-15.2) gm/dl Hct (35.5-45.6) % MCV (84-94) fl MCH (28-32) pg MCHC (32-34) % RDW (13.2-15.2) % Plt Count (140-440) K/mm3 Lymph % (Auto) (13.4-35.0) % Lymph # (1.2-5.4) K/mm3 Seg Neutrophils % (40.0-70.0) % Seg Neutrophils # (1.8-7.7) K/mm3 Potassium (3.6-5.0) mmol/L Chloride (98-107) mmol/L Carbon Dioxide (22-30) mmol/L BUN (9-20) mg/dL Glucose (75-100) mg/dL POC Glucose 45 L 42 L (70-105) Calcium (8.4-10.2) mg/dL Crossmatch See Detail 11/07/18 11/08/18 11/08/18 Range/Units 21:39 07:25 07:25 WBC 12.2 H (4.5-11.0) K/mm3 RBC 3.31 L (3.65-5.03) M/mm3 Hgb 8.1 L (11.8-15.2) gm/dl Hct 24.4 L (35.5-45.6) % MCV 74 L (84-94) fl MCH 24 L (28-32) pg MCHC (32-34) % RDW 18.3 H (13.2-15.2) % Plt Count 123 L (140-440) K/mm3 Lymph % (Auto) 11.3 L (13.4-35.0) % Lymph # (1.2-5.4) K/mm3 Seg Neutrophils % 83.3 H (40.0-70.0) % Seg Neutrophils # 10.2 H (1.8-7.7) K/mm3 Potassium 3.2 L (3.6-5.0) mmol/L Chloride 107.4 H (98-107) mmol/L Carbon Dioxide (22-30) mmol/L BUN 44 H (9-20) mg/dL Glucose 64 L (75-100) mg/dL POC Glucose 55 L (70-105) Calcium 6.6 L (8.4-10.2) mg/dL Crossmatch 11/08/18 Range/Units 07:54 WBC (4.5-11.0) K/mm3 RBC (3.65-5.03) M/mm3 Hgb (11.8-15.2) gm/dl Hct (35.5-45.6) % MCV (84-94) fl MCH (28-32) pg MCHC (32-34) % RDW (13.2-15.2) % Plt Count (140-440) K/mm3 Lymph % (Auto) (13.4-35.0) % Lymph # (1.2-5.4) K/mm3 Seg Neutrophils % (40.0-70.0) % Seg Neutrophils # (1.8-7.7) K/mm3 Potassium (3.6-5.0) mmol/L Chloride (98-107) mmol/L Carbon Dioxide (22-30) mmol/L BUN (9-20) mg/dL Glucose (75-100) mg/dL POC Glucose 68 L (70-105) Calcium (8.4-10.2) mg/dL Crossmatch
[2018-11-08] MEDS: LYRICA PO SCH ×2 (10:31→21:59)
[2018-11-08] MEDS: ALDACTONE PO SCH (10:32)
[2018-11-08] MEDS: LOPRESSOR PO SCH ×2 (10:32→22:01)
[2018-11-08] MEDS: QUESTRAN PO SCH ×2 (10:32→21:59)
[2018-11-08] MEDS: DAKIN'S HALF STRENGTH TP SCH ×2 (10:32→22:06)
[2018-11-08] MEDS: PROTONIX PO SCH (10:32)
[2018-11-08] MEDS: SODIUM CHLORIDE FLUSH SYRINGE 10 ML IV SCH ×2 (10:33→22:07)
[2018-11-08] MEDS ORDERED: K-DUR PO ONE ×2 (11:00→14:00)
[2018-11-08 11:20] LABS: Iron 58 ug/dL (49-181)
[2018-11-08 12:03] LABS: Total Iron Binding Capacity 60 mcg/dL (250-450)
[2018-11-08] MEDS: INVanz 1 GM in NACL 0.9% 50 ML IV SCH (12:30)
--- NOTE | 2018-11-08 16:02 | Event Note ---
Date: 11/08/18 Set up for tunneled PICC on thursday.
[2018-11-08] MEDS: LOVENOX SUB-Q SCH (21:59)
[2018-11-09] MEDS: DILAUDID IV PRN ×5 (01:24→23:16)
[2018-11-09 05:29] LABS: Basophils % (Auto) 0.1 % (0.0-1.8); Eosinophils % (Auto) 0.2 % (0.0-4.3); Hematocrit 24.5 % (35.5-45.6); Hemoglobin 8.3 gm/dl (11.8-15.2); Lymphocytes # (Auto) 1.7 K/mm3 (1.2-5.4); Lymphocytes % (Auto) 14.1 % (13.4-35.0); Mean Corpuscular HGB Conc 34 % (32-34); Mean Corpuscular Volume 72 fl (84-94); Monocytes # (Auto) 0.5 K/mm3 (0.0-0.8); Platelet Count 133 K/mm3 (140-440); Red Blood Count 3.39 M/mm3 (3.65-5.03)
[2018-11-09] MEDS: DEMADEX PO SCH ×2 (05:40→17:43)
[2018-11-09] MEDS: D5/0.45NS 1,000 ML IV SCH (05:40)
[2018-11-09 05:54] LABS: BUN/Creatinine Ratio 39; Blood Urea Nitrogen 39 mg/dL (9-20); Calcium 6.9 mg/dL (8.4-10.2); Hemolysis Index 0
[2018-11-09] MEDS: HumaLOG SUB-Q SCH ×4 (08:08→23:17)
[2018-11-09] MEDS: CREON DR 12,000 UNITS PO SCH ×3 (08:16→17:43)
--- NOTE | 2018-11-09 09:28 | Progress Note ---
Assessment and Plan Assessment and plan: Sepsis secondary to pneumonia, bacteremia and probable osteomyelitis. Continue antibiotics per ID Sacral decubitus ulcer - high concern for osteomyelitis, wound likely down to the bone. Will likely need 6 weeks of IV antibiotics empirically. MRI of pelvis ordered but patient unable to complete due to intolerance/pain. For PICC line placement 11/11 CoNS Bacteremia: blood cultures 1 out of 4 bottles. likely a contaminant. Follow-up repeat blood cultures. Anemia. Patient is s/p 2 units PRBCs. NSTEMI 2. Etiology probably secondary to #1. Pt with elevated troponin but denies any occurrence of cardiac symptoms. ECG with no acute ischemic changes. Echo revealed EF 50-55%, LA mildly dilated, small pericardial effusion, left pleural effusion. Stress test was found to be negative. Penile discharge - swabbed. Hypokalemia. Replete potassium. Hx of BKA Hypertension. Continue antihypertensive medications. Afib. Currently NSR. Cardiology Will not initiate systemic AC at this time in setting of anemia. Likely resume AC postoperatively. DM2. Continue Accu-Cheks and sliding scale insulin. Severe protein calorie malnutrition. History Interval history: No fever Hospitalist Physical - Physical exam Narrative exam: Gen: Not in acute distress, lying in bed, HEENT: Normocephalic, atraumatic Neck: supple, no JVD Heart: S1 and S2 reg, no murmurs, rubs or gallop Lungs: Clear, no crackles, no rhonchi Abd: soft, non tender, non distended, normal BS, Ext: Bilateral BKA Neuro: Lethargic sacral decubitus ulcer - Constitutional Vitals: Temp Pulse Resp BP Pulse Ox 97.8 F 68 18 158/97 100 11/09/18 05:00 11/09/18 05:00 11/09/18 05:00 11/09/18 05:00 11/09/18 05:00 General appearance: Present: no acute distress Results - Labs CBC & Chem 7: 11/09/18 05:04 11/09/18 05:04 Labs: Laboratory Last Values WBC 11.8 K/mm3 (4.5-11.0) H 11/09/18 05:04 RBC 3.39 M/mm3 (3.65-5.03) L 11/09/18 05:04 Hgb 8.3 gm/dl (11.8-15.2) L 11/09/18 05:04 Hct 24.5 % (35.5-45.6) L 11/09/18 05:04 MCV 72 fl (84-94) L 11/09/18 05:04 MCH 25 pg (28-32) L 11/09/18 05:04 MCHC 34 % (32-34) 11/09/18 05:04 RDW 18.0 % (13.2-15.2) H 11/09/18 05:04 Plt Count 133 K/mm3 (140-440) L 11/09/18 05:04 Lymph % (Auto) 14.1 % (13.4-35.0) 11/09/18 05:04 [place] % (Auto) 4.0 % (0.0-7.3) 11/09/18 05:04 Eos % (Auto) 0.2 % (0.0-4.3) 11/09/18 05:04 Baso % (Auto) 0.1 % (0.0-1.8) 11/09/18 05:04 Lymph # 1.7 K/mm3 (1.2-5.4) 11/09/18 05:04 [place] # 0.5 K/mm3 (0.0-0.8) 11/09/18 05:04 Eos # 0.0 K/mm3 (0.0-0.4) 11/09/18 05:04 Baso # 0.0 K/mm3 (0.0-0.1) 11/09/18 05:04 Add Manual Diff Complete 11/05/18 11:22 Total Counted 100 11/05/18 11:22 Seg Neutrophils % 81.6 % (40.0-70.0) H 11/09/18 05:04 Seg Neuts % (Manual) 96.0 % (40.0-70.0) H 11/05/18 11:22 0 % 11/05/18 11:22 3.0 % (13.4-35.0) L 11/05/18 11:22 Reactive Lymphs % (Man) 0 % 11/05/18 11:22 1.0 % (0.0-7.3) 11/05/18 11:22 0 % (0.0-4.3) 11/05/18 11:22 0 % (0.0-1.8) 11/05/18 11:22 0 % 11/05/18 11:22 0 % 11/05/18 11:22 0 % 11/05/18 11:22 0 % 11/05/18 11:22 Nucleated RBC % Not Reportable 11/05/18 11:22 Seg Neutrophils # 9.7 K/mm3 (1.8-7.7) H 11/09/18 05:04 Seg Neutrophils # Man 23.9 K/mm3 (1.8-7.7) H 11/05/18 11:22 Band Neutrophils # 0.0 K/mm3 11/05/18 11:22 0.7 K/mm3 (1.2-5.4) L 11/05/18 11:22 Abs React Lymphs (Man) 0.0 K/mm3 11/05/18 11:22 0.2 K/mm3 (0.0-0.8) 11/05/18 11:22 0.0 K/mm3 (0.0-0.4) 11/05/18 11:22 0.0 K/mm3 (0.0-0.1) 11/05/18 11:22 0.0 K/mm3 11/05/18 11:22 0.0 K/mm3 11/05/18 11:22 0.0 K/mm3 11/05/18 11:22 Blast Cells # 0.0 K/mm3 11/05/18 11:22 WBC Morphology Not Reportable 11/05/18 11:22 Hypersegmented Neuts Not Reportable 11/05/18 11:22 Hyposegmented Neuts Not Reportable 11/05/18 11:22 Hypogranular Neuts Not Reportable 11/05/18 11:22 Not Reportable 11/05/18 11:22 Not Reportable 11/05/18 11:22 Not Reportable 11/05/18 11:22 Not Reportable 11/05/18 11:22 Not Reportable 11/05/18 11:22 Not Reportable 11/05/18 11:22 Consistent w auto 11/05/18 11:22 Not Reportable 11/05/18 11:22 Plt Clumps, EDTA Not Reportable 11/05/18 11:22 Not Reportable 11/05/18 11:22 Not Reportable 11/05/18 11:22 Not Reportable 11/05/18 11:22 Plt Morphology Comment Not Reportable 11/05/18 11:22 RBC Morphology Not Reportable 11/05/18 11:22 Dimorphic RBCs Not Reportable 11/05/18 11:22 Not Reportable 11/05/18 11:22 1+ 11/05/18 11:22 1+ 11/05/18 11:22 1+ 11/05/18 11:22 Not Reportable 11/05/18 11:22 Not Reportable 11/05/18 11:22 Not Reportable 11/05/18 11:22 Not Reportable 11/05/18 11:22 Not Reportable 11/05/18 11:22 Not Reportable 11/05/18 11:22 Few 11/05/18 11:22 Few 11/05/18 11:22 Not Reportable 11/05/18 11:22 Not Reportable 11/05/18 11:22 Not Reportable 11/05/18 11:22 Not Reportable 11/05/18 11:22 Not Reportable 11/05/18 11:22 Not Reportable 11/05/18 11:22 Not Reportable 11/05/18 11:22 Acanthocytes (Spur) Not Reportable 11/05/18 11:22 Rouleaux Not Reportable 11/05/18 11:22 Not Reportable 11/05/18 11:22 Rare 11/05/18 11:22 Not Reportable 11/05/18 11:22 ESR 85 mm/Hr (0-20) 11/03/18 05:19 Percent Retic 0.41 % (0.78-2.58) L 11/08/18 10:30 Not Reportable 11/05/18 11:22 Hem Pathologist Commnt No 11/05/18 11:22 Sodium 140 mmol/L (137-145) 11/09/18 05:04 Potassium 3.5 mmol/L (3.6-5.0) L 11/09/18 05:04 Chloride 105.9 mmol/L (98-107) 11/09/18 05:04 Carbon Dioxide 23 mmol/L (22-30) 11/09/18 05:04 15 mmol/L 11/09/18 05:04 BUN 39 mg/dL (9-20) H 11/09/18 05:04 1.0 mg/dL (0.8-1.5) 11/09/18 05:04 Estimated GFR > 60 ml/min 11/09/18 05:04 39 % 11/09/18 05:04 Glucose 82 mg/dL (75-100) 11/09/18 05:04 POC Glucose 93 (70-105) 11/09/18 07:29 4.7 % (4-6) 11/01/18 23:29 Lactic Acid 1.80 mmol/L (0.7-2.0) 11/02/18 05:45 Calcium 6.9 mg/dL (8.4-10.2) L 11/09/18 05:04 Iron 58 ug/dL (49-181) 11/08/18 10:30 TIBC 60 mcg/dL (250-450) L 11/08/18 10:30 > 2000.0 ng/mL (13.0-400.0) H 11/08/18 10:30 0.40 mg/dL (0.1-1.2) 11/02/18 02:49 AST 16 units/L (5-40) 11/02/18 02:49 ALT 7 units/L (7-56) 11/02/18 02:49 144 units/L (35-129) H 11/02/18 02:49 0.429 ng/mL (0.00-0.029) H* D 11/02/18 21:30 14.30 mg/dL (0.00-1.30) H 11/03/18 05:19 NT-Pro-B Natriuret Pep 2622 pg/mL (0-450) H 11/01/18 15:53 6.5 g/dL (6.3-8.2) 11/02/18 02:49 1.6 g/dL (3.9-5) L 11/02/18 02:49 0.3 % 11/02/18 02:49 0.060 g/L (0.200-0.400) L 11/09/18 05:04 Triglycerides 34 mg/dL (2-149) 11/01/18 15:53 Cholesterol 54 mg/dL (50-199) 11/01/18 15:53 23 mg/dL (50-130) L 11/01/18 15:53 25 mg/dL (40-59) L 11/01/18 15:53 2.16 % 11/01/18 15:53 Vitamin B12 > 2000 pg/mL (211-911) H 11/08/18 10:30 6.88 ng/mL (7.3-26.0) L 11/08/18 10:30 [place] (Yellow) 11/02/18 18:10 Cloudy (Clear) 11/02/18 18:10 9.0 (5.0-7.0) H 11/02/18 18:10 Ur Specific [place] 1.014 (1.003-1.030) 11/02/18 18:10 100 mg/dl mg/dL (Negative) 11/02/18 18:10 Neg mg/dL (Negative) 11/02/18 18:10 Neg mg/dL (Negative) 11/02/18 18:10 Sm (Negative) 11/02/18 18:10 Neg (Negative) 11/02/18 18:10 Neg (Negative) 11/02/18 18:10 < 2.0 mg/dL (<2.0) 11/02/18 18:10 Ur Leukocyte Esterase Lg (Negative) 11/02/18 18:10 58.0 /HPF (0.0-6.0) H 11/02/18 18:10 40.0 /HPF (0.0-6.0) 11/02/18 18:10 U Epithel Cells (Auto) 2.0 /HPF (0-13.0) 11/02/18 18:10 Triple Phos Crystals 3+ 11/02/18 18:10 Few /HPF 11/02/18 18:10 Vancomycin Trough 40.2 ug/mL (5.0-20.0) H 11/05/18 19:45 Random Vancomycin 23.1 ug/mL (0-40.0) 11/09/18 05:04 C.trachomatis DNA (SDA) Not detected (Not Detected) 11/02/18 14:08 N.gonorrhoeae DNA (SDA) Not detected (Not Detected) 11/02/18 14:08 Blood Type A POSITIVE 11/07/18 14:55 Antibody Screen Negative 11/07/18 14:55 Crossmatch See Detail 11/07/18 14:55 Active Medications - Current Medications Current Medications: Generic Name Dose Route Start Last Admin Trade Name Freq PRN Reason Stop Dose Admin Acetaminophen 650 mg 11/01/18 22:40 Tylenol PO Q4H PRN Pain MILD(1-3)/Fever >100.5/NOWAK Lipase/Protease/Amylase 1 each 11/02/18 07:30 11/09/18 08:[address] 12,000 Units PO 1 each AC YURI Administration Cholestyramine Resin 4 gm 11/02/18 10:00 11/08/18 21:59 Questran PO 4 gm BID YURI Administration Enoxaparin Sodium 40 mg 11/02/18 22:00 11/08/18 21:59 Lovenox SUB-Q 40 mg QDAY@2200 YURI Administration Hydralazine HCl 10 mg 11/05/18 23:22 11/06/18 06:26 Apresoline IV 10 mg Q4H PRN Administration Blood Pressure Hydromorphone HCl 0.5 mg 11/01/18 22:40 11/09/18 06:18 Dilaudid IV 0.5 mg Q3H PRN Administration Pain , Severe (7-10) Dextrose/Sodium Chloride 1,000 mls @ 100 mls/hr 11/03/18 23:00 11/09/18 05:40 D5/0.45ns IV 100 mls/hr DIRECT YURI Administration Sodium Chloride 1,000 mls @ 42 mls/hr 11/04/18 16:00 Nacl 0.9% 1000 Ml IV DIRECT YURI Ertapenem 1 gm/ Sodium 50 mls @ 100 mls/hr 11/08/18 12:30 11/08/18 12:30 Chloride IV 100 mls/hr QDAY YURI Administration Insulin Human Lispro 0 unit 11/02/18 07:30 11/09/18 08:08 Humalog SUB-Q Not Given ACHS YURI Protocol Metoclopramide HCl 10 mg 11/01/18 22:40 Reglan IV Q6H PRN Nausea And Vomiting Metoprolol Tartrate 50 mg 11/02/18 22:00 11/08/18 22:01 Lopressor PO 50 mg BID YURI Administration Ondansetron HCl 4 mg 11/01/18 22:40 Zofran IV Q8H PRN Nausea And Vomiting Oxycodone/Acetaminophen 1 tab 11/02/18 06:36 08//19 01:23 Percocet 5/325 PO 1 tab Q6HR PRN Administration Pain Pantoprazole Sodium 40 mg 11/02/18 10:00 11/08/18 10:32 Protonix PO 40 mg QDAY YURI Administration Pregabalin 75 mg 11/02/18 10:00 11/08/18 21:59 Lyrica PO 75 mg BID YURI Administration Sodium Chloride 10 ml 11/02/18 10:00 11/08/18 22:07 Sodium Chloride Flush Syringe 10 Ml IV 10 ml BID YURI Administration Sodium Chloride 10 ml 11/01/18 22:40 11/04/18 21:12 Sodium Chloride Flush Syringe 10 Ml IV 10 ml PRN PRN Administration LINE FLUSH Sodium Hypochlorite 1 applic 11/05/18 15:00 11/08/18 22:06 Dakin's Half Strength TP 1 applicatio BID YURI Administration Spironolactone 25 mg 11/02/18 10:00 11/08/18 10:32 Aldactone PO 25 mg QDAY YURI Administration Torsemide 40 mg 11/02/18 07:00 11/09/18 05:40 Demadex PO 40 mg BID@0600,1800 YURI Administration Nutrition/Malnutrition Assess - Dietary Evaluation Nutrition/Malnutrition Findings: Nutrition Notes Start: 11/02/18 11:58 Freq: Status: Active Protocol: Document 11/04/18 15:05 RM (Rec: 11/04/18 15:10 RM [email or web address]) Nutrition Notes Initial or Follow up Reassessment Current Diagnosis Decubitus(Pressure Ulcer), Diabetes,Sepsis,Hypertension Other Pertinent Diagnosis multiple wounds, Hx BKA Current Diet NPO Labs/Tests Reviewed Pertinent Medications Reviewed Height 6 ft 4 in Weight 82.8 kg [place] Body Weight (kg) 91.81 BMI 22.2 Subjective/Other Information Pt stated that prior to NPO his appetite was good and that he ate most of his meals. Noted temporal wasting. Percent of energy/protein needs met: 100%/100% (prior to NPO) Burn Absent Trauma Absent #2 Nutrition Diagnosis Increased nutrient needs ( specify in comment below) Diagnosis Progress(for reassessment Continues documentation) #1 Nutrition Diagnosis Malnutrition Diagnosis Progress(for reassessment Continues documentation) Is patient on ventilator? No Is Patient Ambulatory and/or Out of Bed No REE-([facility]-confined to bed) [phone] Calculation Used for Recommendations [facility] Additional Notes Protein needs are 97-122g (1.2 -1.5g/kg) Fluid needs are 1ml/kcal Nutrition Intervention Change Diet Order: Advance diet when medically able Add Supplement/Snack (indicate name/kcal Continue double portions once /protein ) diet advanced Goal #1 Diet advancement Goal #2 Wound healing Goal #3 Wt gain/maintenance Anticipated Discharge Needs: Cardiac consistent CHO with extra protein Follow-Up By: 11/12/18 Additional Comments Follow for PO and ONS intakes
--- NOTE | 2018-11-09 09:54 | Progress Note ---
Assessment and Plan Cultures: 11/01/18 Blood: CoNS, 1 out of 4 bottles 11/02/18 Penis Foreskin: Proteus, Morganela, E.faecalis 11/04/18 Blood: NGTD 11/04/18 Surgical Buttock: Klebsiella, Enterobacter A/P: 48 yo M with PMHx of bilateral BKA, HTN, afib, DM2, sleep apnea admitted with sacral decubitus ulcer, pneumonia and penile discharge. 1. Sepsis secondary to pneumonia - seen on CXR, would continue antibiotics with pip/tazo and vanco for now given myriad of infectious processes. Not short of breath currently. CRP 14.3. Blood CX CoNS. Rpt Blood CX no growth. 2. CoNS Bacteremia: blood cultures 1 out of 4 bottles. likely a contaminant. Rpt. blood CX no growth. 3. Sacral decubitus ulcer - high concern for osteomyelitis, wound likely down to the bone. MRI scan refused by patient. Will empirically treat as osteomyelitis Will need 6 weeks of IV antibiotics. S/p excisional debridement of sacral and right gluteal wound 11/04/18. 4. Penile discharge - swabbed with POLYETHYLENE COMBINER, doesn't entirely appear to be discharge. Appears to be lesion on penis. Cultures grew Proteus, susceptible to pip/mike. gonorrhea and chlamydia screen negative 5. Hx of BKA 6. HTn 7. Afib 8. DM2 Recs: Continue Ertapenem 1 gm IV every 24 hours for total 6 weeks ending 12-13-18 Order placed with case management Tunneled PICC line placement scheduled for Thursday Wound care outpatient Follow-up ID clinic in 2 weeks (sent to project scheduler) Geraldine Samuels NP [facility] M: [phone] O:[phone] Subjective Date of service: 11/09/18 Principal diagnosis: sepsis Interval history: Patient seen and examined. Siting up in bed. No acute distress reported. Reports that he is anxious to go back to SNF. Objective - Exam Narrative Exam: Constitutional: Alert. Awake. No acute distress. Head, Ears, Nose: Normocephalic, atraumatic. External ears, nose normal Eyes: Conjunctivae/corneas clear. No icterus. No ptosis. Neck: Supple, no meningeal signs Oral: fair dentition, moist mucous membranes Cardiovascular: S1, S2 normal. Normal rhythm Respiratory: Good air entry, clear to auscultation bilaterally GI: Soft, non-tender; bowel sounds normal. No peritoneal signs : yellowish discharge/lesion on inferior aspect of penis, below the meatus. Unable to be easily wipe away Musculoskeletal: 3x wounds, deep. No obvious purulence. Bilateral BKA. Skin: No rash or abscess Hem/Lymphatic: No palpable cervical or supraclavicular nodes. No lymphangitis Psych: uncooperative. Flat affect Neurological: Moves all extremities, no focal defects - Constitutional Vitals: Vital Signs Temp Pulse Resp BP Pulse Ox 97.8 F 68 18 158/97 100 11/09/18 05:00 11/09/18 05:00 11/09/18 05:00 11/09/18 05:00 11/09/18 05:00 Temperature -Last 24 Hours Temperature 97.8 F Temperature 98.3 F Temperature 98.5 F Temperature 97.9 F - Labs CBC & Chem 7: 11/09/18 05:04 11/09/18 05:04 Labs: Abnormal lab results 11/08/18 11/08/18 11/08/18 Range/Units 10:30 10:30 10:30 WBC (4.5-11.0) K/mm3 RBC (3.65-5.03) M/mm3 Hgb (11.8-15.2) gm/dl Hct (35.5-45.6) % MCV (84-94) fl MCH (28-32) pg RDW (13.2-15.2) % Plt Count (140-440) K/mm3 Seg Neutrophils % (40.0-70.0) % Seg Neutrophils # (1.8-7.7) K/mm3 Percent Retic 0.41 L (0.78-2.58) % Potassium (3.6-5.0) mmol/L BUN (9-20) mg/dL POC Glucose (70-105) Calcium (8.4-10.2) mg/dL TIBC 60 L (250-450) mcg/dL Ferritin > 2000.0 H (13.0-400.0) ng/mL Prealbumin (0.200-0.400) g/L Vitamin B12 (211-911) pg/mL Folate (7.3-26.0) ng/mL 11/08/18 11/08/1811/08/19 Range/Units 10:30 10:30 11:37 WBC (4.5-11.0) K/mm3 RBC (3.65-5.03) M/mm3 Hgb (11.8-15.2) gm/dl Hct (35.5-45.6) % MCV (84-94) fl MCH (28-32) pg RDW (13.2-15.2) % Plt Count (140-440) K/mm3 Seg Neutrophils % (40.0-70.0) % Seg Neutrophils # (1.8-7.7) K/mm3 Percent Retic (0.78-2.58) % Potassium (3.6-5.0) mmol/L BUN (9-20) mg/dL POC Glucose 69 L (70-105) Calcium (8.4-10.2) mg/dL TIBC (250-450) mcg/dL Ferritin (13.0-400.0) ng/mL Prealbumin (0.200-0.400) g/L Vitamin B12 > 2000 H (211-911) pg/mL Folate 6.88 L (7.3-26.0) ng/mL 11/08/18 11/09/18 11/09/18 Range/Units 16:30 05:04 05:04 WBC 11.8 H (4.5-11.0) K/mm3 RBC 3.39 L (3.65-5.03) M/mm3 Hgb 8.3 L (11.8-15.2) gm/dl Hct 24.5 L (35.5-45.6) % MCV 72 L (84-94) fl MCH 25 L (28-32) pg RDW 18.0 H (13.2-15.2) % Plt Count 133 L (140-440) K/mm3 Seg Neutrophils % 81.6 H (40.0-70.0) % Seg Neutrophils # 9.7 H (1.8-7.7) K/mm3 Percent Retic (0.78-2.58) % Potassium 3.5 L (3.6-5.0) mmol/L BUN 39 H (9-20) mg/dL POC Glucose 122 H (70-105) Calcium 6.9 L (8.4-10.2) mg/dL TIBC (250-450) mcg/dL Ferritin (13.0-400.0) ng/mL Prealbumin 0.060 L (0.200-0.400) g/L Vitamin B12 (211-911) pg/mL Folate (7.3-26.0) ng/mL
--- NOTE | 2018-11-09 10:59 | Progress Note ---
Assessment and Plan 48 yo M s/p excisional debridement of sacral and right gluteal wound POD 5 1. sacral decubitus ulcer 2. bilateral gluteal pressure ulcers 3. severe malnutrition - albumin 1.7, PAL 0.06 4. sepsis 5. elevated troponin Plan: 1. continue dakins to sacral wound while in hospital, upon discharge will need santyl applied to bilateral gluteal wounds and sacral wound daily. 2. IV abx per ID 3. offloading 4. optimize nutrition -protein supplements. May need PEG in future if nutrition remains poor Patient remains very unmotivated and is sleeping during this interaction. He is always laying on one side (right). Until the patient is able to offload and improve his nutritional status, these wounds will continue to deteriorate despite debridement. At this point, I recommend continuing local wound care with santyl applied to all wounds daily after discharge. He may be set up for follow up in wound care center after discharge per his facility. Ok to dc from surgery standpoint. Thank you, please call with questions. Subjective Date of service: 11/09/18 Narrative: Pt seen and examined. Not very interactive. No f/c Objective Vital Signs - 12hr 11/09/18 11/09/18 00:15 05:00 Temperature 98.3 F 97.8 F Pulse Rate 67 68 Respiratory 20 18 Rate Blood Pressure 172/91 158/97 [Left] O2 Sat by Pulse 100 100 Oximetry - General physical appearance Narrative Exam: Gen: Sleeping but arousable. NAD CV: s1, s2+ Resp: even and unlabored Ext: no c/c/e. Dressings over all wounds in place. Note and photos from hot pipe gauger reviewed - Labs 11/09/18 05:04 11/09/18 05:04 Diabetes panel 11/09/18 Range/Units 05:04 Sodium 140 (137-145) mmol/L Potassium 3.5 L (3.6-5.0) mmol/L Chloride 105.9 (98-107) mmol/L Carbon Dioxide 23 (22-30) mmol/L BUN 39 H (9-20) mg/dL Creatinine 1.0 (0.8-1.5) mg/dL Glucose 82 (75-100) mg/dL Calcium 6.9 L (8.4-10.2) mg/dL Calcium panel 11/09/18 Range/Units 05:04 Calcium 6.9 L (8.4-10.2) mg/dL Pituitary panel 11/09/18 Range/Units 05:04 Sodium 140 (137-145) mmol/L Potassium 3.5 L (3.6-5.0) mmol/L Chloride 105.9 (98-107) mmol/L Carbon Dioxide 23 (22-30) mmol/L BUN 39 H (9-20) mg/dL Creatinine 1.0 (0.8-1.5) mg/dL Glucose 82 (75-100) mg/dL Calcium 6.9 L (8.4-10.2) mg/dL Adrenal panel 11/09/18 Range/Units 05:04 Sodium 140 (137-145) mmol/L Potassium 3.5 L (3.6-5.0) mmol/L Chloride 105.9 (98-107) mmol/L Carbon Dioxide 23 (22-30) mmol/L BUN 39 H (9-20) mg/dL Creatinine 1.0 (0.8-1.5) mg/dL Glucose 82 (75-100) mg/dL Calcium 6.9 L (8.4-10.2) mg/dL
[2018-11-09] MEDS: ALDACTONE PO SCH (11:29)
[2018-11-09] MEDS: LOPRESSOR PO SCH ×2 (11:30→23:16)
[2018-11-09] MEDS: LYRICA PO SCH ×2 (11:30→23:16)
[2018-11-09] MEDS: QUESTRAN PO SCH ×2 (11:30→23:17)
[2018-11-09] MEDS: PROTONIX PO SCH (11:30)
[2018-11-09] MEDS: INVanz 1 GM in NACL 0.9% 50 ML IV SCH (12:18)
[2018-11-09] MEDS: SODIUM CHLORIDE FLUSH SYRINGE 10 ML IV SCH ×2 (12:19→23:17)
[2018-11-09] MEDS: DAKIN'S HALF STRENGTH TP SCH ×2 (19:42→23:17)
[2018-11-09] MEDS: LOVENOX SUB-Q SCH (23:16)
[2018-11-10] MEDS: D5/0.45NS 1,000 ML IV SCH (01:48)
[2018-11-10] MEDS: DEMADEX PO SCH (05:39)
[2018-11-10] MEDS ORDERED: D50W (25GM) Syringe IV ONE (05:48)
[2018-11-10] MEDS: CREON DR 12,000 UNITS PO SCH ×2 (07:30→12:49)
[2018-11-10] MEDS: HumaLOG SUB-Q SCH ×2 (07:30→11:30)
[2018-11-10] MEDS ORDERED: XYLOCAINE 2% INFILTRATI ONE (08:26)
[2018-11-10] MEDS ORDERED: HEPARIN/NS 5000 UNIT/500ML(CATH LAB) 500 ML IR ONE (08:26)
[2018-11-10] MEDS ORDERED: VERSED ONE (08:55)
[2018-11-10] MEDS ORDERED: NACL 0.9% 500 ML 500 ML ONE (08:56)
[2018-11-10] MEDS: SUBLIMAZE ONE ×2 (09:02→09:08)
--- NOTE | 2018-11-10 09:31 | Operative Report ---
Operative Report Operative Report: Exam: Ultrasound and fluoroscopic guided placement of tunneled PICC Clinical indication: Sepsis, PICC required for long-term antibiotics Date: 11/10/2018 Procedure: Following an explanation of the risks, benefits and alternatives; written informed consent was obtained. The patient was brought to the angio graphic suite and placed in supine position on the examination table. Initial ultrasound evaluation of the neck demonstrated a patent left internal jugular vein. The patient's left neck and chest wall were prepped and draped in the usual sterile fashion. 1% lidocaine was used for anesthesia. Under ultrasound guidance, the left internal jugular vein was cannulated with a 7 cm 18-gauge needle. A 0.018 guidewire was advanced centrally under fluoroscopy. The guidewire was advanced to the IVC to document intravenous positioning and for anchoring. Images were saved. The needle was removed. An appropriate catheter exit site was chosen along the lateral left chest wall. 1% lidocaine was used for anesthesia at the catheter exit site and along the tunnel tract. A Bard dual-lumen our patient was then tunneled antegrade from the path catheter exit site to the venotomy site. Under fluoroscopy, a 5.5 [place] peel-away sheath was advanced over the guidewire centrally. Following standard guidewire measurements, the guidewire was removed and the PICC cut to length and inserted through the peel-away sheath. The peel-away sheath was removed and the catheter tip positioned in the proximal right atrium. Both ports flushed and aspirated well and were then locked with sterile saline. The venotomy was closed using Dermabond and Steri-Strips. 4-0 Vicryl suture was applied to the catheter exit site. A StatLock device was also applied. Sterile dressing was then applied. The patient tolerated the procedure well. There were no immediate postprocedure complications. Conscious sedation was performed under the guidance of radiologic nursing. Continuous cardiopulmonary monitoring was utilized. Impression: Ultrasound and fluoroscopic guided placement of tunneled PICC line via the left internal jugular vein.
--- NOTE | 2018-11-10 09:35 | Progress Note ---
Assessment and Plan Cultures: 11/01/18 Blood: CoNS, 1 out of 4 bottles 11/02/18 Penis Foreskin: Proteus, Morganela, E.faecalis 11/04/18 Blood: NGTD 11/04/18 Surgical Buttock: Klebsiella, Enterobacter A/P: 48 yo M with PMHx of bilateral BKA, HTN, afib, DM2, sleep apnea admitted with sacral decubitus ulcer, pneumonia and penile discharge. 1. Sepsis secondary to pneumonia - Improved. Not short of breath currently. CRP 14.3. Blood CX CoNS. Rpt Blood CX no growth. 2. CoNS Bacteremia: blood cultures 1 out of 4 bottles. likely a contaminant. Rpt. blood CX no growth. 3. Sacral decubitus ulcer - high concern for osteomyelitis, wound likely down to the bone. MRI scan refused by patient. Will empirically treat as osteomyelitis Will need 6 weeks of IV antibiotics. S/p excisional debridement of sacral and right gluteal wound 11/04/18. 4. Penile discharge - swabbed with GEAR MACHINE OPERATOR GENERAL, doesn't entirely appear to be discharge. Appears to be lesion on penis. Cultures grew Proteus, susceptible to pip/mike. gonorrhea and chlamydia screen negative 5. Hx of BKA 6. HTn 7. Afib 8. DM2 Recs: Continue Ertapenem 1 gm IV every 24 hours for total 6 weeks ending 12-13-18 Order placed with case management Wound care outpatient Follow-up ID clinic in 2 weeks (sent to dandy operator) Geraldine Samuels NP [facility] M: [phone] O:[phone] Subjective Date of service: 11/10/18 Principal diagnosis: sepsis Interval history: Patient seen and examined. laying in bed. No acute distress reported. No fevers. Objective - Exam Narrative Exam: Constitutional: Alert. Awake. No acute distress. Head, Ears, Nose: Normocephalic, atraumatic. External ears, nose normal Eyes: Conjunctivae/corneas clear. No icterus. No ptosis. Neck: Supple, no meningeal signs Oral: fair dentition, moist mucous membranes Cardiovascular: S1, S2 normal. Normal rhythm Respiratory: Good air entry, clear to auscultation bilaterally GI: Soft, non-tender; bowel sounds normal. No peritoneal signs : yellowish discharge/lesion on inferior aspect of penis, below the meatus. Unable to be easily wipe away Musculoskeletal: 3x wounds, deep. No obvious purulence. Bilateral BKA. Skin: No rash or abscess Hem/Lymphatic: No palpable cervical or supraclavicular nodes. No lymphangitis Psych: uncooperative. Flat affect Neurological: Moves all extremities, no focal defects Lines: Left IJ - Constitutional Vitals: Vital Signs Temp Pulse Resp BP Pulse Ox 98.7 F 77 24 117/76 100 11/09/18 22:12 11/09/18 23:16 11/09/18 22:12 11/09/18 23:16 11/09/18 22:12 Temperature -Last 24 Hours Temperature 98.7 F Temperature 97.8 F - Labs CBC & Chem 7: 11/09/18 05:04 11/09/18 05:04 Labs: Abnormal lab results 11/09/18 11/09/18 11/09/18 Range/Units 11:29 16:55 21:14 POC Glucose 320 H 232 H < 40 L (70-105) 11/10/18 11/10/18 11/10/18 Range/Units 05:54 06:13 07:59 POC Glucose 42 L 60 L 64 L (70-105)
--- NOTE | 2018-11-10 10:31 | Progress Note ---
Hospitalist Physical - Constitutional Vitals: Temp Pulse Resp BP Pulse Ox 98.7 F 77 24 117/76 100 11/09/18 22:12 11/09/18 23:16 11/09/18 22:12 11/09/18 23:16 11/09/18 22:12 General appearance: Present: no acute distress Results - Labs CBC & Chem 7: 11/09/18 05:04 11/09/18 05:04 Labs: Laboratory Last Values WBC 11.8 K/mm3 (4.5-11.0) H 11/09/18 05:04 RBC 3.39 M/mm3 (3.65-5.03) L 11/09/18 05:04 Hgb 8.3 gm/dl (11.8-15.2) L 11/09/18 05:04 Hct 24.5 % (35.5-45.6) L 11/09/18 05:04 MCV 72 fl (84-94) L 11/09/18 05:04 MCH 25 pg (28-32) L 11/09/18 05:04 MCHC 34 % (32-34) 11/09/18 05:04 RDW 18.0 % (13.2-15.2) H 11/09/18 05:04 Plt Count 133 K/mm3 (140-440) L 11/09/18 05:04 Lymph % (Auto) 14.1 % (13.4-35.0) 11/09/18 05:04 [place] % (Auto) 4.0 % (0.0-7.3) 11/09/18 05:04 Eos % (Auto) 0.2 % (0.0-4.3) 11/09/18 05:04 Baso % (Auto) 0.1 % (0.0-1.8) 11/09/18 05:04 Lymph # 1.7 K/mm3 (1.2-5.4) 11/09/18 05:04 [place] # 0.5 K/mm3 (0.0-0.8) 11/09/18 05:04 Eos # 0.0 K/mm3 (0.0-0.4) 11/09/18 05:04 Baso # 0.0 K/mm3 (0.0-0.1) 11/09/18 05:04 Add Manual Diff Complete 11/05/18 11:22 Total Counted 100 11/05/18 11:22 Seg Neutrophils % 81.6 % (40.0-70.0) H 11/09/18 05:04 Seg Neuts % (Manual) 96.0 % (40.0-70.0) H 11/05/18 11:22 0 % 11/05/18 11:22 3.0 % (13.4-35.0) L 11/05/18 11:22 Reactive Lymphs % (Man) 0 % 11/05/18 11:22 1.0 % (0.0-7.3) 11/05/18 11:22 0 % (0.0-4.3) 11/05/18 11:22 0 % (0.0-1.8) 11/05/18 11:22 0 % 11/05/18 11:22 0 % 11/05/18 11:22 0 % 11/05/18 11:22 0 % 11/05/18 11:22 Nucleated RBC % Not Reportable 11/05/18 11:22 Seg Neutrophils # 9.7 K/mm3 (1.8-7.7) H 11/09/18 05:04 Seg Neutrophils # Man 23.9 K/mm3 (1.8-7.7) H 11/05/18 11:22 Band Neutrophils # 0.0 K/mm3 11/05/18 11:22 0.7 K/mm3 (1.2-5.4) L 11/05/18 11:22 Abs React Lymphs (Man) 0.0 K/mm3 11/05/18 11:22 0.2 K/mm3 (0.0-0.8) 11/05/18 11:22 0.0 K/mm3 (0.0-0.4) 11/05/18 11:22 0.0 K/mm3 (0.0-0.1) 11/05/18 11:22 0.0 K/mm3 11/05/18 11:22 0.0 K/mm3 11/05/18 11:22 0.0 K/mm3 11/05/18 11:22 Blast Cells # 0.0 K/mm3 11/05/18 11:22 WBC Morphology Not Reportable 11/05/18 11:22 Hypersegmented Neuts Not Reportable 11/05/18 11:22 Hyposegmented Neuts Not Reportable 11/05/18 11:22 Hypogranular Neuts Not Reportable 11/05/18 11:22 Not Reportable 11/05/18 11:22 Not Reportable 11/05/18 11:22 Not Reportable 11/05/18 11:22 Not Reportable 11/05/18 11:22 Not Reportable 11/05/18 11:22 Not Reportable 11/05/18 11:22 Consistent w auto 11/05/18 11:22 Not Reportable 11/05/18 11:22 Plt Clumps, EDTA Not Reportable 11/05/18 11:22 Not Reportable 11/05/18 11:22 Not Reportable 11/05/18 11:22 Not Reportable 11/05/18 11:22 Plt Morphology Comment Not Reportable 11/05/18 11:22 RBC Morphology Not Reportable 11/05/18 11:22 Dimorphic RBCs Not Reportable 11/05/18 11:22 Not Reportable 11/05/18 11:22 1+ 11/05/18 11:22 1+ 11/05/18 11:22 1+ 11/05/18 11:22 Not Reportable 11/05/18 11:22 Not Reportable 11/05/18 11:22 Not Reportable 11/05/18 11:22 Not Reportable 11/05/18 11:22 Not Reportable 11/05/18 11:22 Not Reportable 11/05/18 11:22 Few 11/05/18 11:22 Few 11/05/18 11:22 Not Reportable 11/05/18 11:22 Not Reportable 11/05/18 11:22 Not Reportable 11/05/18 11:22 Not Reportable 11/05/18 11:22 Not Reportable 11/05/18 11:22 Not Reportable 11/05/18 11:22 Not Reportable 11/05/18 11:22 Acanthocytes (Spur) Not Reportable 11/05/18 11:22 Rouleaux Not Reportable 11/05/18 11:22 Not Reportable 11/05/18 11:22 Rare 11/05/18 11:22 Not Reportable 11/05/18 11:22 ESR 85 mm/Hr (0-20) 11/03/18 05:19 Percent Retic 0.41 % (0.78-2.58) L 11/08/18 10:30 Not Reportable 11/05/18 11:22 Hem Pathologist Commnt No 11/05/18 11:22 Sodium 140 mmol/L (137-145) 11/09/18 05:04 Potassium 3.5 mmol/L (3.6-5.0) L 11/09/18 05:04 Chloride 105.9 mmol/L (98-107) 11/09/18 05:04 Carbon Dioxide 23 mmol/L (22-30) 11/09/18 05:04 15 mmol/L 11/09/18 05:04 BUN 39 mg/dL (9-20) H 11/09/18 05:04 1.0 mg/dL (0.8-1.5) 11/09/18 05:04 Estimated GFR > 60 ml/min 11/09/18 05:04 39 % 11/09/18 05:04 Glucose 82 mg/dL (75-100) 11/09/18 05:04 POC Glucose 64 (70-105) L 11/10/18 07:59 4.7 % (4-6) 11/01/18 23:29 Lactic Acid 1.80 mmol/L (0.7-2.0) 11/02/18 05:45 Calcium 6.9 mg/dL (8.4-10.2) L 11/09/18 05:04 Iron 58 ug/dL (49-181) 11/08/18 10:30 TIBC 60 mcg/dL (250-450) L 11/08/18 10:30 > 2000.0 ng/mL (13.0-400.0) H 11/08/18 10:30 0.40 mg/dL (0.1-1.2) 11/02/18 02:49 AST 16 units/L (5-40) 11/02/18 02:49 ALT 7 units/L (7-56) 11/02/18 02:49 144 units/L (35-129) H 11/02/18 02:49 0.429 ng/mL (0.00-0.029) H* D 11/02/18 21:30 14.30 mg/dL (0.00-1.30) H 11/03/18 05:19 NT-Pro-B Natriuret Pep 2622 pg/mL (0-450) H 11/01/18 15:53 6.5 g/dL (6.3-8.2) 11/02/18 02:49 1.6 g/dL (3.9-5) L 11/02/18 02:49 0.3 % 11/02/18 02:49 0.060 g/L (0.200-0.400) L 11/09/18 05:04 Triglycerides 34 mg/dL (2-149) 11/01/18 15:53 Cholesterol 54 mg/dL (50-199) 11/01/18 15:53 23 mg/dL (50-130) L 11/01/18 15:53 25 mg/dL (40-59) L 11/01/18 15:53 2.16 % 11/01/18 15:53 Vitamin B12 > 2000 pg/mL (211-911) H 11/08/18 10:30 6.88 ng/mL (7.3-26.0) L 11/08/18 10:30 Elena (Yellow) 11/02/18 18:10 Cloudy (Clear) 11/02/18 18:10 9.0 (5.0-7.0) H 11/02/18 18:10 Ur Specific [place] 1.014 (1.003-1.030) 11/02/18 18:10 100 mg/dl mg/dL (Negative) 11/02/18 18:10 Neg mg/dL (Negative) 11/02/18 18:10 Neg mg/dL (Negative) 11/02/18 18:10 Sm (Negative) 11/02/18 18:10 Neg (Negative) 11/02/18 18:10 Neg (Negative) 11/02/18 18:10 < 2.0 mg/dL (<2.0) 11/02/18 18:10 Ur Leukocyte Esterase Lg (Negative) 11/02/18 18:10 58.0 /HPF (0.0-6.0) H 11/02/18 18:10 40.0 /HPF (0.0-6.0) 11/02/18 18:10 U Epithel Cells (Auto) 2.0 /HPF (0-13.0) 11/02/18 18:10 Triple Phos Crystals 3+ 11/02/18 18:10 Few /HPF 11/02/18 18:10 Vancomycin Trough 40.2 ug/mL (5.0-20.0) H 11/05/18 19:45 Random Vancomycin 23.1 ug/mL (0-40.0) 11/09/18 05:04 C.trachomatis DNA (SDA) Not detected (Not Detected) 11/02/18 14:08 N.gonorrhoeae DNA (SDA) Not detected (Not Detected) 11/02/18 14:08 Blood Type A POSITIVE 11/07/18 14:55 Antibody Screen Negative 11/07/18 14:55 Crossmatch See Detail 11/07/18 14:55 Active Medications - Current Medications Current Medications: Generic Name Dose Route Start Last Admin Trade Name Freq PRN Reason Stop Dose Admin Acetaminophen 650 mg 11/01/18 22:40 Tylenol PO Q4H PRN Pain MILD(1-3)/Fever >100.5/NOWAK Lipase/Protease/Amylase 1 each 11/02/18 07:30 11/09/18 17:[address] 12,000 Units PO 1 each AC YURI Administration Cholestyramine Resin 4 gm 11/02/18 10:00 11/09/18 23:17 Questran PO 4 gm BID YURI Administration Enoxaparin Sodium 40 mg 11/02/18 22:00 11/09/18 23:16 Lovenox SUB-Q 40 mg QDAY@2200 YURI Administration Hydralazine HCl 10 mg 11/05/18 23:22 11/06/18 06:26 Apresoline IV 10 mg Q4H PRN Administration Blood Pressure Hydromorphone HCl 0.5 mg 11/01/18 22:40 11/09/18 23:16 Dilaudid IV 0.5 mg Q3H PRN Administration Pain , Severe (7-10) Dextrose/Sodium Chloride 1,000 mls @ 100 mls/hr 11/03/18 23:00 11/10/18 01:48 D5/0.45ns IV 100 mls/hr DIRECT YURI Administration Sodium Chloride 1,000 mls @ 42 mls/hr 11/04/18 16:00 Nacl 0.9% 1000 Ml IV DIRECT YURI Ertapenem 1 gm/ Sodium 50 mls @ 100 mls/hr 11/08/18 12:30 11/09/18 12:18 Chloride IV 12/13/18 10:29 100 mls/hr QDAY YURI Administration Insulin Human Lispro 0 unit 11/02/18 07:30 11/10/18 07:30 Humalog SUB-Q Not Given ACHS [facility] Protocol Metoclopramide HCl 10 mg 11/01/18 22:40 Reglan IV Q6H PRN Nausea And Vomiting Metoprolol Tartrate 50 mg 11/02/18 22:00 11/09/18 23:16 Lopressor PO 50 mg BID YURI Administration Ondansetron HCl 4 mg 11/01/18 22:40 Zofran IV Q8H PRN Nausea And Vomiting Oxycodone/Acetaminophen 1 tab 11/02/18 06:36 11/07/18 01:23 Percocet 5/325 PO 1 tab Q6HR PRN Administration Pain Pantoprazole Sodium 40 mg 11/02/18 10:00 11/09/18 11:30 Protonix PO 40 mg QDAY YURI Administration Pregabalin 75 mg 11/02/18 10:00 11/09/18 23:16 Lyrica PO 75 mg BID YURI Administration Sodium Chloride 10 ml 11/02/18 10:00 11/09/18 23:17 Sodium Chloride Flush Syringe 10 Ml IV 10 ml BID YURI Administration Sodium Chloride 10 ml 11/01/18 22:40 11/04/18 21:12 Sodium Chloride Flush Syringe 10 Ml IV 10 ml PRN PRN Administration LINE FLUSH Sodium Hypochlorite 1 applic 11/05/18 15:00 11/09/18 23:17 Dakin's Half Strength TP 1 applicatio BID YURI Administration Spironolactone 25 mg 11/02/18 10:00 11/09/18 11:29 Aldactone PO 25 mg QDAY YURI Administration Torsemide 40 mg 11/02/18 07:00 11/10/18 05:39 Demadex PO 40 mg BID@0600,1800 YURI Administration Nutrition/Malnutrition Assess - Dietary Evaluation Nutrition/Malnutrition Findings: Nutrition Notes Start: 11/02/18 11:58 Freq: Status: Active Protocol: Document 11/04/18 15:05 RM (Rec: 11/04/18 15:10 RM [id number]) Nutrition Notes Initial or Follow up Reassessment Current Diagnosis Decubitus(Pressure Ulcer), Diabetes,Sepsis,Hypertension Other Pertinent Diagnosis multiple wounds, Hx BKA Current Diet NPO Labs/Tests Reviewed Pertinent Medications Reviewed Height 6 ft 4 in Weight 82.8 kg [place] Body Weight (kg) 91.81 BMI 22.2 Subjective/Other Information Pt stated that prior to NPO his appetite was good and that he ate most of his meals. Noted temporal wasting. Percent of energy/protein needs met: 100%/100% (prior to NPO) Burn Absent Trauma Absent #2 Nutrition Diagnosis Increased nutrient needs ( specify in comment below) Diagnosis Progress(for reassessment Continues documentation) #1 Nutrition Diagnosis Malnutrition Diagnosis Progress(for reassessment Continues documentation) Is patient on ventilator? No Is Patient Ambulatory and/or Out of Bed No REE-([facility]-confined to bed) [phone] Calculation Used for Recommendations [facility] Additional Notes Protein needs are 97-122g (1.2 -1.5g/kg) Fluid needs are 1ml/kcal Nutrition Intervention Change Diet Order: Advance diet when medically able Add Supplement/Snack (indicate name/kcal Continue double portions once /protein ) diet advanced Goal #1 Diet advancement Goal #2 Wound healing Goal #3 Wt gain/maintenance Anticipated Discharge Needs: Cardiac consistent CHO with extra protein Follow-Up By: 11/12/18 Additional Comments Follow for PO and ONS intakes
[2018-11-10] MEDS: LOPRESSOR PO SCH (12:49)
[2018-11-10] MEDS: QUESTRAN PO SCH (12:49)
[2018-11-10] MEDS: PERCOCET 5/325 PO PRN (12:49)
[2018-11-10] MEDS: ALDACTONE PO SCH (12:50)
[2018-11-10] MEDS: INVanz 1 GM in NACL 0.9% 50 ML IV SCH (12:50)
[2018-11-10] MEDS: LYRICA PO SCH (12:50)
[2018-11-10] MEDS: PROTONIX PO SCH (12:50)
[2018-11-10] MEDS: SODIUM CHLORIDE FLUSH SYRINGE 10 ML IV SCH (12:51)
[2018-11-10 13:05] VITALS: BP 190/95
--- NOTE | 2018-11-10 14:15 | Discharge Summary ---
Providers - Providers Date of Admission: 11/01/18 19:10 Date of discharge: 11/10/18 Attending physician: ALIYA DEUTSCH 11/01/18 22:40 Consult to Physician [CONS] Routine Comment: Consulting Provider: LUCERO FELICIANO Physician Instructions: Reason For Exam: sepsis 11/02/18 06:39 Consult to Dietitian/Nutrition [CONS] Routine Physician Instructions: Reason For Exam: severe malnutrition Reason for Consult: Pt needs oral supplement Consult to Wound/ET Nurse [CONS] Routine Reason For Exam: wound eval 11/02/18 06:43 Consult to Physician [CONS] Routine Comment: Consulting Provider: BC CALVILLO Physician Instructions: Reason For Exam: Sacral decub ulcerx3 Consult to Wound/ET Nurse [CONS] Routine Reason For Exam: wound eval 11/02/18 11:44 Occupational Therapy Evaluate and Treat [CONS] Routine Comment: Reason For Exam: amina/treat, upper body muscle weakness Physical Therapy Evaluation and Treat [CONS] Routine Comment: subacute pateint Reason For Exam: eval. for transfers 11/02/18 14:43 Consult to Physician [CONS] Routine Comment: Consulting Provider: CHIDI ABAD Physician Instructions: Reason For Exam: cardiac clearance 11/08/18 11:25 Consult to Case Management [CONS] Urgent Services Needed at Discharge: Other Notified:: yes Additional Physician Instructions: [facility] M [phone] O [phone] F [phone] OUTPATIENT PARENTERAL ANTIBIOTIC THERAPY ORDERS Diagnoses: Sacral Decubitus Ulcer - treat for Osteomyelitis Antimicrobial administration: Ertapenem 1 gm IV every 24 hours for total 6 weeks ending 12-13-18 Lines: Remove PICC line after last dose unless otherwise instructed. Lab monitoring: CBC, BUN, Creatinine, ALT, AST, CRP, ESR once a week preferly on Thursday morning. Please fax results to [phone] and call [phone] for critical lab results. Geraldine Samuels NP/Afshan Graves Date: 11/08/18 11/08/18 11:29 PICC Line Insertion [Consult to PICC Line RN] [CONS] Routine Reason For Exam: OPAT Type Line:: PICC 11/08/18 14:21 Consult to Interventional Radiology [CONS] Routine Consulting Provider: JAMAL ADAMS Reason For Exam: Tunneled catheter for OPAT Place consult to:: dr. adams Notified:: md Phone number called:: [phone] Was contact made?: Yes If yes, spoke with:: eamon Time called:: 15:53 Primary care physician: TIM JARAMILLO Hospitalization Condition: Fair Disposition: DC-01 TO HOME OR SELFCARE Core Measure Documentation - Palliative Care Palliative Care/ Comfort Measures: Not Applicable - Core Measures Any of the following diagnoses?: none Exam - Constitutional Vitals: Temp Pulse Resp BP Pulse Ox 97.9 F 60 20 190/95 100 11/10/18 12:24 11/10/18 12:24 11/10/18 12:24 11/10/18 12:24 11/10/18 12:24 Plan Activity: advance as tolerated Diet: low fat, low cholesterol, low salt, diabetic Additional Instructions: 1.Follow up with Physician at SNF in 2-3 days. 2.Contact isolation for VRE Plan of Treatment: 1.Follow up with Physician at SNF in 2-3 days. 2.Follow up with Dr. Calvillo, Surgeon in 1 week. 3.Follow up with Dr. Yang, ID in 2 weeks 4.Ertapenem 1g iv daily until 12/13/18 Health Concerns: Wound care Assessment: 1.Sepsis 2.Sacral decub ulcer 3.Sacral osteomyelitis 4.VRE - contact isolation Follow up with: TIM JARAMILLO MD [Primary Care Provider] - 7 Days Prescriptions: Metoprolol [Lopressor TAB] 50 mg PO BID #60 tablet Collagenase (Nf) [Santyl (Nf)] 1 applicatio TP QDAY #90 gram
== END 2018-11-10 17:22 | DRG 853 ==
LOC: ED 14:53 → 4A 19:10 → OBSVTOIN 19:10 → 3A 11-03 13:02
PROVIDERS: ADMIT Internal Medicine; ATTEND Internal Medicine
PROC: 0KBP0ZZ Excision of Left Hip Muscle, Open Approach (ICD-10-PCS; principal; 2018-11-04)
PROC: 0KBN0ZZ Excision of Right Hip Muscle, Open Approach (ICD-10-PCS; 2018-11-04)
PROC: 0KBN0ZZ Excision of Right Hip Muscle, Open Approach (ICD-10-PCS; 2018-11-04)
PROC: 30233N1 Transfusion of Nonautologous Red Blood Cells into Peripheral Vein, Percutaneous Approach (ICD-10-PCS; 2018-11-08)
PROC: 0JH63XZ Insertion of Tunneled Vascular Access Device into Chest Subcutaneous Tissue and Fascia, Percutaneous Approach (ICD-10-PCS; 2018-11-10)
PROC: 02H633Z Insertion of Infusion Device into Right Atrium, Percutaneous Approach (ICD-10-PCS; 2018-11-10)
PROC: B2141ZZ Fluoroscopy of Right Heart using Low Osmolar Contrast (ICD-10-PCS; 2018-11-10)
PROC: B244ZZZ Ultrasonography of Right Heart (ICD-10-PCS; 2018-11-10)
DX: A41.1 Sepsis due to other specified staphylococcus (principal); L89.154 Pressure ulcer of sacral region, stage 4; L89.313 Pressure ulcer of right buttock, stage 3; J18.9 Pneumonia, unspecified organism; I21.A1 Myocardial infarction type 2; R65.21 Severe sepsis with septic shock; E43 Unspecified severe protein-calorie malnutrition; N17.0 Acute kidney failure with tubular necrosis; I31.3 Pericardial effusion (noninflammatory); M86.8X8 Other osteomyelitis, other site; R64 Cachexia; E11.69 Type 2 diabetes mellitus with other specified complication; N48.89 Other specified disorders of penis; F32.9 Major depressive disorder, single episode, unspecified; I10 Essential (primary) hypertension; I48.91 Unspecified atrial fibrillation; Z68.22 Body mass index [BMI] 22.0-22.9, adult; Z89.512 Acquired absence of left leg below knee; Z89.511 Acquired absence of right leg below knee; Z87.891 Personal history of nicotine dependence; Z82.49 Family history of ischemic heart disease and other diseases of the circulatory system; Z88.8 Allergy status to other drugs, medicaments and biological substances; Z83.3 Family history of diabetes mellitus; Z79.01 Long term (current) use of anticoagulants; Z74.01 Bed confinement status; Z79.84 Long term (current) use of oral hypoglycemic drugs; E78.5 Hyperlipidemia, unspecified; Z87.01 Personal history of pneumonia (recurrent)
CPT/HCPCS: 36415; 36558; 71045; 76937; 77001; 78452; 80048; 80053; 80061; 80202; 81001; 82140; 82607; 82728; 82747; 82962; 83036; 83550; 83880; 84134; 84484; 85007; 85025; 85045; 85652; 86140; 86850; 86900; 86901; 86920; 87040; 87076; 87086; 87116; 87186; 87591; 93005; 93010; 93017; 93306; 96361; 96365; G0378; A6260; A9502; C1751; J0360; J1170; J1335; J1644; J1650; J1815; J2250; J2543; J2704; J2765; J2785; J3010; J3370; J3480; J7030; J7040; J7050; P9016

== ENCOUNTER 2018-12-05 11:07 | Emergency (ER) | payer MEDICARE ==
[2018-12-05] MEDS ORDERED: D5W (50 ML) IV ONE (11:41)
--- NOTE | 2018-12-05 11:43 | Emergency Department Report ---
ED General Adult HPI - General Stated complaint: BLOOD SUGAR/UNRESPONSIVE Time Seen by Provider: 12/05/18 11:17 - History of Present Illness Initial comments: 48-year-old -Northern Irish male presents to the emergency room via MS for concerns of hypo-glycemia hypo-tension. It was reported that EMS arrived to the facility patient's blood sugar was 78. EMS recheck blood sugar was 24. Blood pressure was 90/56. Patient was unresponsive EMS initiated protocol D5. Patient did not resume responsiveness until he arrived here in the emergency room. Patient's blood sugar on arrival at the emergency room was 126. Blood pressures improved to 147/86. Patient is currently being treated for sepsis muscle weakness ostomy mellitus the vertebral sacral and 6:00 or region. Patient reports to me that he is on his eighth day of IV antibiotics through a P ICC line. Patient expressed to me that he felt he only needed some sugar which would help him with his hypoglycemia. Patient only complains of sacral pain when lying on his back on stretcher. - Related Data Home Medications Medication Instructions Recorded Confirmed Last Taken Ascorbic Acid [Vitamin C with Fouzia 500 mg PO BID 11/02/18 11/02/18 1 Day Ago Hips] ~11/01/18 Cholestyramine (with Sugar) 4 gm PO BID 11/02/18 11/02/18 1 Day Ago [Cholestyramine Packet] ~11/01/18 Lipase/Protease/Amylase [Garth Rodriguez 12,000 units PO AC 11/02/18 11/02/18 1 Day Ago 12,000 Units Capsule] ~11/01/18 Multivitamin Tab W-MINERAL 1 each PO QD 11/02/18 11/02/18 1 Day Ago [Multiple Vitamin/Mineral ~11/01/18 (Theragran M)] Pantoprazole Sodium [Protonix] 40 mg PO QDAY 11/02/18 11/02/18 1 Day Ago ~11/01/18 Pregabalin [Lyrica] 75 mg PO BID 11/02/18 11/02/18 1 Day Ago ~11/01/18 Spironolactone [Aldactone] 25 mg PO QDAY 11/02/18 11/02/18 1 Day Ago ~11/01/18 Torsemide [Demadex] 40 mg PO BID 11/02/18 11/02/18 1 Day Ago ~11/01/18 oxyCODONE /ACETAMINOPHEN [Percocet 1 tab PO Q6HR PRN 11/02/18 11/02/18 1 Day Ago 5/325 mg] ~11/01/18 Previous Rx's Medication Instructions Recorded Last Taken Type Collagenase (Nf) [Santyl (Nf)] 1 applicatio TP QDAY #90 gram 11/09/18 Unknown Rx Ertapenem [INVanz] 1 gm IV QDAY vial 11/10/18 Unknown Rx Metoprolol [Lopressor TAB] 50 mg PO BID tablet 11/10/18 Unknown Rx Metoprolol [Lopressor TAB] 50 mg PO BID #60 tablet 11/10/18 Unknown Rx Allergies Allergy/AdvReac Type Severity Reaction Status Date / Time lactose AdvReac Diarrhea Verified 11/02/18 11:58 ED Review of Systems ROS: Stated complaint: BLOOD SUGAR/UNRESPONSIVE Other details as noted in HPI ED Past Medical Hx - Past Medical History Hx Hypertension: Yes Hx Heart Attack/AMI: Yes Hx Diabetes: Yes Hx Psychiatric Treatment: Yes (major depressive disorder) Additional medical history: anemia, hyperlipidemia, malaise, obstructive sleep apnea, gas gangrene, sever protein-calorie malnutrition, 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 - Social History Smoking Status: Never Smoker - Medications Home Medications: Home Medications Medication Instructions Recorded Confirmed Last Taken Type Ascorbic Acid [Vitamin C with Fouzia 500 mg PO BID 11/02/18 11/02/18 1 Day Ago History Hips] ~11/01/18 Cholestyramine (with Sugar) 4 gm PO BID 11/02/18 11/02/18 1 Day Ago History [Cholestyramine Packet] ~11/01/18 Lipase/Protease/Amylase [Garth Rodriguez 12,000 units PO AC 11/02/18 11/02/18 1 Day Ago History 12,000 Units Capsule] ~11/01/18 Multivitamin Tab W-MINERAL 1 each PO QD 11/02/18 11/02/18 1 Day Ago History [Multiple Vitamin/Mineral ~11/01/18 (Theragran M)] Pantoprazole Sodium [Protonix] 40 mg PO QDAY 11/02/18 11/02/18 1 Day Ago History ~11/01/18 Pregabalin [Lyrica] 75 mg PO BID 11/02/18 11/02/18 1 Day Ago History ~11/01/18 Spironolactone [Aldactone] 25 mg PO QDAY 11/02/18 11/02/18 1 Day Ago History ~11/01/18 Torsemide [Demadex] 40 mg PO BID 11/02/18 11/02/18 1 Day Ago History ~11/01/18 oxyCODONE /ACETAMINOPHEN [Percocet 1 tab PO Q6HR PRN 11/02/18 11/02/18 1 Day Ago History 5/325 mg] ~11/01/18 Collagenase (Nf) [Santyl (Nf)] 1 applicatio TP QDAY #90 gram 11/09/18 Unknown Rx Ertapenem [INVanz] 1 gm IV QDAY vial 11/10/18 Unknown Rx Metoprolol [Lopressor TAB] 50 mg PO BID tablet 11/10/18 Unknown Rx Metoprolol [Lopressor TAB] 50 mg PO BID #60 tablet 11/10/18 Unknown Rx ED Physical Exam - General Limitations: No Limitations General appearance: cachectic - Head Head exam: Present: atraumatic, normocephalic - Eye Eye exam: Present: normal appearance, PERRL - ENT ENT exam: Present: mucous membranes moist - Neck Neck exam: Present: normal inspection, full ROM - Respiratory Respiratory exam: Present: normal lung sounds bilaterally. Absent: respiratory distress - Cardiovascular Cardiovascular Exam: Present: regular rate, normal rhythm. Absent: systolic murmur, diastolic murmur, rubs, gallop - GI/Abdominal GI/Abdominal exam: Present: soft, normal bowel sounds, other (J-tube present) - Rectal Rectal exam: Present: deferred - Extremities Exam Extremities exam: Present: other (bilateral BKA) - Neurological Exam Neurological exam: Present: alert, oriented X3 - Expanded Neurological Exam Expanded Patient oriented to: Present: person, place, time Cranial nerves: EOM's Intact: Normal, Gag Reflex: Normal Sensory exam: Upper Extremity Light Touch: Normal, Upper Extremity Pin Prick: Normal, Upper Extremity Temperature: Normal, UE 2 Point Discrimination: Normal, Lower Extremity Light Touch: Normal, Lower Extremity Pin Prick: Normal, Lower Extremity Temperature: Normal, LE 2 Point Discrimination: Normal Motor strength exam: RUE: 4, LUE: 4, RLE: 4, LLE: 4 Best Eye Response (Angy): (4) open spontaneously Best Motor Response (Angy): (6) obeys commands Best Verbal Response ([place]): (5) oriented Angy Total: 15 - Psychiatric Psychiatric exam: Present: normal affect, normal mood - Skin Skin exam: Present: warm, dry ED Course Vital Signs 12/05/18 12/05/18 12/05/18 11:22 11:30 11:40 Temperature 93.9 F L 93.9 F L Pulse Rate 60 60 54 L Respiratory 14 14 20 Rate Blood Pressure 135/75 140/74 Blood Pressure 135/75 135/75 [Left] O2 Sat by Pulse 100 100 98 Oximetry 12/05/18 12/05/18 12/05/18 11:45 12:00 12:15 Temperature Pulse Rate 53 L 54 L 55 L Respiratory 11 L 13 16 Rate Blood Pressure 109/63 115/64 124/68 Blood Pressure [Left] O2 Sat by Pulse 98 100 99 Oximetry 12/05/18 12/05/18 12/05/18 12:30 12:45 13:00 Temperature Pulse Rate 54 L 52 L 52 L Respiratory 9 L 17 9 L Rate Blood Pressure 124/68 118/67 105/39 Blood Pressure [Left] O2 Sat by Pulse 99 100 100 Oximetry 12/05/18 13:15 Temperature Pulse Rate 59 L Respiratory 14 Rate Blood Pressure 131/71 Blood Pressure [Left] O2 Sat by Pulse 98 Oximetry ED Medical Decision Making - Medical Decision Making 48-year-old -Northern [place] male presents to the emergency room via [place] for concerns of hypo-glycemia hypo-tension. It was reported that EMS arrived to the facility patient's blood sugar was 78. EMS recheck blood sugar was 24. Blood pressure was 90/56. Patient was unresponsive EMS initiated protocol D5. Patient did not resume responsiveness until he arrived here in the emergency room. Patient's blood sugar on arrival at the emergency room was 126. Blood pressures improved to 147/86. Patient is currently being treated for sepsis muscle weakness ostomy mellitus the vertebral sacral and 6:00 or region. Patient reports to me that he is on his eighth day of IV antibiotics through a PICC line. Patient expressed to me that he felt he only needed some sugar which would help him with his hypoglycemia. Patient only complains of sacral pain when lying on his back on stretcher. Patient expressed to this provider and nurse staff that he would like to leave and be returned back to the rehabilitation center. I spoke extensively with the patient my concerns of sepsis since his vital signs reflect hypo-thermo with a rectal temperature of 93. Discussed with patient I would like to do further workup. Patient reports that he has 8 more days of antibiotics at the rehabilitation center and he prefers to continue with his follow-up and treatment at the rehabilitation center. Patient will like to sign AMA. I discussed with patient that he puts his health that wrist for worsening condition or even . Patient feels that he will be taking care of at the rehabilitation. Patient's requesting to be transferred back to the rehabilitation. I discussed with my attending Dr. Lopes patient's request. Mini: Patient is oriented to time , Place and date Patient is aware that he is not at his rehab. facility and is at the hospital. Patient is able to identify his children that has arrived to his bedside. man and women. Patient is oriented to his disease and aware of what he risk he is putting him self into if he does not get further work-up. Critical care attestation.: If time is entered above; I have spent that time in minutes in the direct care of this critically ill patient, excluding procedure time. ED Disposition Clinical Impression: Hypoglycemia, Hypothermia Disposition: DC-07 LEFT AGAINST MED ADVICE Is pt being admited?: No Does the pt Need Aspirin: No Condition: Undetermined Referrals: ALIYA MENA [Other] - 3-5 Days
[2018-12-05] MEDS ORDERED: D5W 100 ML IV SCH (12:00)
[2018-12-05] MEDS ORDERED: D50W (25GM) Syringe IV ONE (13:03)
[2018-12-05 13:32] VITALS: BP 131/71
== END 2018-12-05 13:31 | disposition left against medical advice (07) ==
LOC: ED 11:07
DX: E11.649 Type 2 diabetes mellitus with hypoglycemia without coma (principal); T68.XXXA Hypothermia, initial encounter; I10 Essential (primary) hypertension; I25.2 Old myocardial infarction; F32.9 Major depressive disorder, single episode, unspecified; D64.9 Anemia, unspecified; E78.5 Hyperlipidemia, unspecified; R53.81 Other malaise; G47.33 Obstructive sleep apnea (adult) (pediatric); E11.52 Type 2 diabetes mellitus with diabetic peripheral angiopathy with gangrene; A48.0 Gas gangrene; Z79.899 Other long term (current) drug therapy; Z91.011 Allergy to milk products; Y92.89 Other specified places as the place of occurrence of the external cause
CPT/HCPCS: 82962; 93005; 93010; 96374